=== PATIENT | female | born 1965 | race Caucasian/White ===

== ENCOUNTER 2024-11-06 17:36 | Emergency (ER) | payer MEDICARE, MEDICAID, SELFPAY ==
[2024-11-06 17:37] VITALS: BP 120/79; PULSE 84; RESP 16; TEMP 36.6; O2SAT 95; BMI 39.3
[2024-11-06 19:22] VITALS: BP 124/84; PULSE 85; RESP 16; TEMP 36.7; O2SAT 95
--- NOTE | 2024-11-06 19:50 | RAD_ITS ---
PROCEDURE: CHEST PA AND LATERAL 11/06/2024 REASON FOR EXAM: COUGH TECHNIQUE: CHEST PA AND LATERAL COMPARISON: None FINDINGS: Hardware: None Heart: Cardiomediastinal silhouette is mildly prominent. Mediastinum: Trace aortic atherosclerosis. There is prominence of the addi on the lateral view. Lungs: Flattening of the hemidiaphragms with increased lung volumes. There are linear opacities at the lung bases, with subtle opacity at the periphery of the right lung base near the costophrenic angle. Bones: Degenerative changes are identified within the shoulders and thoracic spine. RAD/Chest PA and Lateral IMPRESSION: 1. Subtle opacity near the periphery of the right lung base is nonspecific, po ssibly atelectasis or scarring, though a small focus of infection could appear similar. 2. Prominent addi on the lateral view, which could represent lymphadenopathy. 3. Sequela of COPD. Consider chest CT when clinically appropriate. Reading Location: [id number]
--- NOTE | 2024-11-06 20:10 | EX.ED.DYSGE1 ---
HPI <RAMO Ramos - Last Filed: 11/06/24 21:18> History of Present Illness Chief Complaint: General Illness Narrative Narrative: Patient presenting today due to concerns for a rash to her forehead she has had over the last 2 weeks. She reports that she started using a new face wash which irritated her skin, she is no longer using this face wash but the rash has persisted. She has not tried putting anything on it. It is not itchy or painful. Additionally, she reports that she has had a nonproductive cough over the last several weeks, she did see her PCP for this and was placed on an antibiotic, she is not sure which antibiotic she was put on. This morning she was checking her vitals and her pulse ox was in the upper 80s. She decided to go to urgent care for her rash and cough but they were closed, prompting her to come here for evaluation. She denies fevers, chills, chest pain, shortness of breath, nausea, and vomiting. PFS <RAMO Ramos - Last Filed: 11/06/24 21:18> [facility] Medical History High cholesterol Hypertension Diabetes Home Medications ?Medication ?Instructions ?Recorded ?Last Taken ?Type hydrochlorothiazide 25 mg tablet 25 mg PO DAILY ##30 05/09/14 Unknown Rx olanzapine 5 mg tablet (Zyprexa) 5 mg PO DAILY 05/09/14 Unknown History albuterol sulfate 90 mcg/actuation 1 - 2 puff inhalation Q4H PRN PRN 11/06/24 Unknown Rx aerosol inhaler (Ventolin HFA) Wheezing #1 inh amlodipine 5 mg tablet 5 mg PO DAILY 11/06/24 Unknown History atorvastatin 20 mg tablet 20 mg PO QHS cholesterol 11/06/24 Unknown History cholecalciferol (vitamin D3) 25 PO 11/06/24 Unknown History mcg (1,000 unit) tablet (Vitamin D3) doxycycline hyclate 100 mg capsule 100 mg PO BID #14 caps 11/06/24 Unknown Rx escitalopram oxalate 5 mg tablet 5 mg PO DAILY 11/06/24 Unknown History losartan 100 mg tablet 100 mg PO DAILY 11/06/24 Unknown History metformin 500 mg tablet 500 mg PO BID 11/06/24 Unknown History olanzapine 15 mg tablet 15 mg PO QHS 11/06/24 Unknown History potassium chloride 10 mEq 10 meq PO BID 11/06/24 Unknown History tablet,extended release white petrolatum 41 % topical 1 applic topical BID PRN dry skin 11/06/24 Unknown Rx ointment (Aquaphor Healing) #7 grams Allergy/AdvReac Type Severity Reaction Status Date / Time No Known Allergies Allergy Verified 11/06/24 17:37 Social History Smoking Status: Never smoker ROS <RAMO Ramos - Last Filed: 11/06/24 21:18> ROS ED Constitutional Constitutional ED: Denies chills or fever(s) Cardiovascular Cardiovascular: Denies chest pain Respiratory/Chest Respiratory/Chest: Reports cough; Denies dyspnea, sputum or wheezing Gastrointestinal Gastrointestinal: Denies abdominal pain, nausea or vomiting Integumentary Reports rash Neurologic Neurologic: Denies weakness EXAM <RAMO Ramos - Last Filed: 11/06/24 21:18> Physical Exam Const Vital Signs: 11/06/24 17:37 11/06/24 19:22 11/06/24 19:25 Temperature 97.8 F 98.1 F Temperature Source Oral Oral Pulse Rate 84 85 Respiratory Rate 16 16 Respiratory Effort Normal Non-Labored Respiratory Pattern Normal Blood Pressure 120/79 124/84 H Blood Pressure Mean 92 97 Pulse Ox 95 95 Oxygen Delivery Method Room Air Room Air 11/06/24 21:04 Temperature 98.1 F Temperature Source Pulse Rate 98 Respiratory Rate 16 Respiratory Effort Respiratory Pattern Blood Pressure 142/88 H Blood Pressure Mean 106 Pulse Ox 98 Oxygen Delivery Method Positive well nourished, well developed and no apparent distress General Appearance ED: well developed HEENT Reports normocephalic and head/scalp atraumatic Mouth ED: Yes moist mucous membranes normal Eyes PERRL and EOMs intact bilaterally Neck full ROM and supple Chest Wall inspection of chest normal Resp normal respiratory effort and clear to auscultation bilaterally Cardio regular rate and regular rhythm GI soft to palpation, non-tender, non-distended and no masses Back/Spine normal ROM and normal to inspection Extremity normal to inspection and full ROM Neuro oriented x3, CN's II-XII intact bilaterally, moves all extremities, no focal motor deficits and no sensory deficits noted Sensorium / Orientation: awake and alert Psych mental status grossly normal and thought process normal Skin Skin Narrative: Dry skin to the forehead, no papules, petechiae, pustules, or abscess. No signs of infection. <Dr. Riky Martin DO - Last Filed: 11/06/24 21:55> Physical Exam Const Vital Signs: 11/06/24 17:37 11/06/24 19:22 11/06/24 19:25 Temperature 97.8 F 98.1 F Temperature Source Oral Oral Pulse Rate 84 85 Respiratory Rate 16 16 Respiratory Effort Normal Non-Labored Respiratory Pattern Normal Blood Pressure 120/79 124/84 H Blood Pressure Mean 92 97 Pulse Ox 95 95 Oxygen Delivery Method Room Air Room Air 11/06/24 21:04 Temperature 98.1 F Temperature Source Pulse Rate 98 Respiratory Rate 16 Respiratory Effort Respiratory Pattern Blood Pressure 142/88 H Blood Pressure Mean 106 Pulse Ox 98 Oxygen Delivery Method MDM <RAMO Ramos - Last Filed: 11/06/24 21:18> [facility] Narrative Medical decision making narrative: Patient presenting today due to a rash on her forehead which she has had over the past 2 weeks and a cough which has been ongoing for several weeks despite taking antibiotics. She is nontoxic-appearing and in no acute distress. Her O2 saturation here has remained around 95% on room air. She is afebrile. Her forehead is consistent with dry skin, she reports this started using a new face wash. Recommend that she put a non-scented sensitive skin lotion on her forehead and discontinue the face wash. Given her cough, chest x-ray obtained to assess for infiltrate and shows a subtle opacity near the periphery of the right lung base and sequela of COPD, she will be treated with antibiotics and an albuterol inhaler. She was ambulated and did not become hypoxic, given this I feel she can be treated as an outpatient. Recommended to close follow-up with her PCP and she will be discharged home in stable condition. Radiography X-Ray: Read by ED Physician Diagnostic Testing: Clinical Impression(s) from Imaging Studies Chest X-Ray 11/06/24 19:50 IMPRESSION: 1. Subtle opacity near the periphery of the right lung base is nonspecific, possibly atelectasis or scarring, though a small focus of infection could appear similar. 2. Prominent addi on the lateral view, which could represent lymphadenopathy. 3. Sequela of COPD. Consider chest CT when clinically appropriate. Reading Location: [facility] <Dr. Riky Martin, DO - Last Filed: 11/06/24 21:55> MDM Radiography Diagnostic Testing: Clinical Impression(s) from Imaging Studies Chest X-Ray 11/06/24 19:50 IMPRESSION: 1. Subtle opacity near the periphery of the right lung base is nonspecific, possibly atelectasis or scarring, though a small focus of infection could appear similar. 2. Prominent addi on the lateral view, which could represent lymphadenopathy. 3. Sequela of COPD. Consider chest CT when clinically appropriate. Reading Location: [facility] Treatment and Re-Evaluation :: ED attending note: I evaluated the patient in conjunction with the AYANA. I agree with his/her statements and above findings. I have personally performed a face to face assessment of the patient and have reviewed the [facility]YA[facility] Note. I performed a substantive portion of the visit including all aspects of the following. I personally saw the patient performed chart review, physical exam, reviewed labs, imaging (if obtained), and formulated a treatment and management plan. The patient's chest x-ray was read reviewed personally myself shows right lower lobe pneumonia. This note was generated with [employer] dictation software. It may contain incorrect words, spelling, and punctuation that were not noted in review of the chart prior to signing. Discharge Plan Triage Chief Complaint: General Illness ED Midlevel Provider: Elena Maurer ED Provider: Riky Martin Dx/Rx/DC Orders Clinical Impression: Pneumonia, Rash Instructions: ED Pneumonia (Adult) Prescriptions: New doxycycline hyclate 100 mg capsule 100 mg PO BID Qty: 14 0RF albuterol sulfate [Ventolin HFA] 90 mcg/actuation HFA aerosol inhaler 1 - 2 puff inhalation Q4H PRN PRN (Reason: Wheezing) Qty: 1 0RF Aquaphor Healing 41 % ointment 1 applic topical BID PRN (Reason: dry skin) Qty: 7 0RF Rx Instructions: Apply to your forehead as needed No Action olanzapine [Zyprexa] 5 MG tablet 5 mg PO DAILY hydrochlorothiazide 25 MG tablet 25 mg PO DAILY Qty: 30 0RF metformin 500 mg tablet 500 mg PO BID atorvastatin 20 mg tablet 20 mg PO QHS potassium chloride 10 mEq tablet extended release 10 meq PO BID amlodipine 5 mg tablet 5 mg PO DAILY olanzapine 15 mg tablet 15 mg PO QHS losartan 100 mg tablet 100 mg PO DAILY escitalopram oxalate 5 mg tablet 5 mg PO DAILY cholecalciferol (vitamin D3) [Vitamin D3] 25 mcg (1,000 unit) tablet PO Primary Care Provider: Osmel Colbert Referrals: Care Physician,No Primary [Non-Staff] - Activity Restrictions/Additional Instructions: Follow-up with your PCP in the next 5 to 7 days and return for any worsening symptoms. You can put a nonscented sensitive skin lotion on your forehead to help with the dry skin/rash, discontinue the soap you were using. Print Language: Luxembourger Disposition Disposition: Home, Self Care Discharge Date/Time: 11/06/24 21:11
--- OUTSIDE RECORDS SUMMARY | 2024-11-06 20:37 | XMS RPT_ITS | CCD ---
Author Organization [facility] Care Team Providers Care Wool Hat Hydraulicker Name Role Phone JOSE C WALLACE Unavailable Unavailable Primay Care Physicia, No Unavailable Unavail able Irma Jurado Unavailable Unavailable Anand Colbert MD Primary Care Provider Jackeline Blue PA-C Primary Care Provider Jackeline Blue PA-C Primary Care Provider [phone] Jackeline Blue PA-C Primary Care Provider [phone] Jackeline Blue PA-C Primary Care Provider [phone] Haagen CUSTOMER RESOLUTION SPECIALIST.DARIO, Venessa Unavailable Suppan CUSTOMER RESOLUTION SPECIALIST.DARIO, Tiffany A Unavailable Suppan CUSTOMER RESOLUTION SPECIALIST.DARIO Tiffany A Primary Care Provi haydee Haagen CUSTOMER RESOLUTION SPECIALIST.DARIO Venessa Unavailable Suppan CUSTOMER RESOLUTION SPECIALIST.DARIO, Tiffany A Unavailable Anand Colbert MD Primary Care Provider Haagen CUSTOMER RESOLUTION SPECIALIST.DARIO, Venessa Unavailable Suppan CUSTOMER RESOLUTION SPECIALIST.DARIO, Tiffany A Unavailable Haagen CUSTOMER RESOLUTION SPECIALIST.DARIO, Venessa Unavailable Suppan CUSTOMER RESOLUTION SPECIALIST.DARIO, Tiffany A Unavailable SHANTELAN, TIFFANY A Referring Unavailable AGAPITO TIFFANY A Primary Care Unavailable SELF Referring Unavailable ANAND COLBERT Primary Care Unavailable ANAND COLBERT Attending Unavailable ANAND COLBERT Primary Care Unavailable ANAND COLBERT Attending Unavailable VINCENT BLUE Primary Care Unavailable VINCENT BLUE Referring Unavailable TIFFANY JOE Attending Unavailable TIFFANY JOE Referring Unavailable VINCENT BLUE Primary Care Unavailable SUPPAN, TIFFANY A Primary Care Unavailable SUPPAN, TIFFANY A Referring Unavailable VINCENT BLUE Primary Care Unavailable VINCENT BLUE Referring Unavailable AGAPITO TIFFANY Teri Attending Unavailable Medications Current Medications Medication Drug Class(es) Dates Sig (Normalized) Sig (Original) amLODIPine 5 mg oral tablet (20 sources) Dihydropyridine Calcium Channel Li Start: 09-06-2024 End: 09-06-2025 take 1 tablet by mouth once daily amLODIPine (NORVASC) 5 mg tablet Indications: Essential hypertension Take 1 tablet by mouth once daily. 90 tablet 3 09/06/2024 09/06/2025 Active Start: 07-04-2024 End: 07-04-2025 take 1 tablet by mouth once daily amLODIPine (NORVASC) 10 mg tablet Indications: Essential hypertension Take 1 tablet by mouth once daily. 90 tablet 3 07/04/2024 09/06/2024 Discontinued Start: 06-24-2023 End: 07-04-2024 take 1 tablet by mouth once daily amLODIPine (NORVASC) 5 mg tablet Indications: Essential hypertension Take 1 tablet by mouth once daily. 90 tablet 3 01/04/2024 07/04/2024 Discontinued Start: 07-12-2021 End: 06-22-2023 take 1 tablet by mouth once daily amLODIPine (NORVASC) 5 mg tablet Indications: Essential hypertension Take 1 tablet by mouth once daily. 90 tablet 3 06/26/2022 06/22/2023 Discontinued Comment on above: Take 1 tablet by chucky th once daily. amoxicillin 875 mg / clavulanate 125 mg oral tablet (2 sources) Penicillin-class Antibacterial Start: End: take 1 tablet by mouth twice daily amoxicillin-clavul anate potassium (AUGMENTIN) 875-125 mg per tablet Indications: Acute recurrent maxillary sinusitis Take 1 tablet by mouth two times a day for 10 days. 20 tablet 01/04/2024 01/14/2024 Active atorvastatin 20 mg oral tablet (20 sources) HMG-CoA Reductase Inhibitor Start: End: take 1 tablet by mouth once daily at bedtime for hyperlipidemia atorvastatin (LIPITOR) 20 mg tablet Indications: Hyperlipidemia, mixed Take 1 tablet by mouth daily at bedtime. For cholesterol. 90 tablet 3 01/04/2024 Active Start: 07-12-2021 End: 06-22-2023 take 1 tablet by mouth once daily at bedtime for hyperlipidemia atorvastatin (LIPITOR) 20 mg tablet Indications: Hyperlipidemia, mixed Take 1 tablet by mouth daily at bedtime. For cholesterol. 90 tablet 3 06/26/2022 06/22/2023 Discontinued Comment on above: Take 1 tablet by chucky th daily at bedtime. For cholesterol. benztropine mesylate 1 mg oral tablet (20 sources) Anticholinergic, Antihistamine Start: take 1 tablet by mouth every twelve hours as needed benztropine (COGENTIN) 1 mg tablet Take 1 mg by mouth twice daily as needed. 07/17/2022 Active Start: 11-04-2021 End: 11-11-2022 take 1 tablet by mouth every eight hours as needed benztropine (COGENTIN) 0.5 mg tablet Take 0.5 mg by mouth three times daily as needed. 0 11/04/2021 11/11/2022 Discontinued Comment on above: 0.5mg 2 in the morni ng and 1 in afternoon Take 0.5 mg by mouth three times daily as needed. Take 1 mg by mouth t wice daily as needed. cholecalciferol 0.025 mg oral capsule (18 sources) Vitamin D Start: 03-25-2024 Cholecalciferol, Vitamin D3, 25 mcg (1,000 unit) cap Indications: Vitamin D deficiency 1 caps daily during the summer, 2 caps daily during winter Patient should start on March 25, 2024. 180 capsule 3 03/25/2024 Active Start: 03-25-2024 Cholecalcifero l, Vitamin D3, 25 mcg (1,000 unit) cap Indications: Vitamin D deficiency 1 caps daily during the summer, 2 caps daily during winter Patient should start on March 25, 2024. 180 capsule 3 03/25/2024 Active Start: 03-25-2024 Cholecalcifero l, Vitamin D3, 25 mcg (1,000 unit) cap Indications: Vitamin D deficiency 1 caps daily during the summer, 2 caps daily during winter Patient should start on March 25, 2024. 180 capsule 3 03/25/2024 Active Start: 03-26-2023 End: 01-04-2024 Cholecalciferol, Vitamin D3, 25 mcg (1,000 unit) cap 1 caps daily during the summer, 2 caps daily during winter 180 capsule 3 03/26/2023 01/04/2024 Discontinued Start: 05-12-2022 Cholecalcifero l, Vitamin D3, 25 mcg (1,000 unit) cap 1 caps daily during the summer, 2 caps daily during winter 180 capsule 3 05/12/2022 Active Comment on above: 1 caps daily during the summer, 2 caps daily during winter escitalopram 5 mg oral tablet (8 sources) Serotonin Reuptake Inhibitor Start: 2023 take 1 tablet by mouth once escitalopram oxalate (LEXAPRO) 5 mg tablet Take 1 tablet by mouth every afternoon. 12/29/2023 Active hydroCHLOROthiazide 25 mg oral tablet (20 sources) Thiazide Diuretic Start: 2023 End: 2023 take 1 tablet by mouth once daily hydroCHLOROthiazide 25 mg tablet Indications: Essential hypertension Take 1 tablet by mouth once daily. 90 tablet 3 01/04/2024 Active Start: 07-12-2021 End: 06-22-2023 take 1 tablet by mouth once daily hydroCHLOROthiazide (HYDRODIURIL, ESIDRIX) 25 mg tablet Indications: Essential hypertension Take 1 tablet by mouth once daily. 90 tablet 3 06/26/2022 06/22/2023 Discontinued Comment on above: Take 1 tablet by chucky th once daily. losartan potassium 100 mg oral tablet (20 sources) Angiotensin 2 Receptor Li Start: take 1 tablet by mouth once daily losartan (COZAAR) 100 mg tablet Indications: Essential hypertension Take 1 tablet by mouth once daily. Patient should start on March 25, 2024. 90 tablet 3 03/25/2024 Active Start: 03-25-2024 take 1 tablet by chucky th once daily losartan (COZAAR) 100 mg tablet Indications: Essential hypertension Take 1 tablet by mouth once daily. Patient should start on March 25, 2024. 90 tablet 3 03/25/2024 Active Start: 03-25-2024 End: 01-04-2024 take 1 tablet by mouth once daily losartan (COZAAR) 100 mg tablet Indications: Essential hypertension Take 1 tablet by mouth once daily. Patient should start on March 25, 2024. 90 tablet 3 03/25/2024 01/04/2024 Discontinued Start: 03-25-2024 take 1 tablet by chucky th once daily losartan (COZAAR) 100 mg tablet Indications: Essential hypertension Take 1 tablet by mouth once daily. Patient should start on March 25, 2024. 90 tablet 3 03/25/2024 Active Start: 03-26-2023 End: 01-04-2024 take 1 tablet by mouth once daily losartan (COZAAR) 100 mg tablet Indications: Essential hypertension Take 1 tablet by mouth once daily. 90 tablet 3 03/26/2023 01/04/2024 Discontinued Start: 05-13-2021 End: 05-12-2022 take 1 tablet by mouth once daily losartan (COZAAR) 100 mg tablet Indications: Essential hypertension Take 1 tablet by mouth once daily. 90 tablet 3 05/12/2022 Active Comment on above: Take 1 tablet by chucky th once daily. metFORMIN hydrochloride 500 mg oral tablet (20 sources) Biguanide Start: End: take 1 tablet by mouth twice daily at mealtime metFORMIN (GLUCOPHAGE) 500 mg tablet Indications: Type 2 diabetes mellitus without complication, without long-term current use of insulin (HCC) Take 1 tablet by mouth two times a day with meals. . Patient should start on March 25, 2024. 180 tablet 3 03/25/2024 03/25/2025 Active Start: 05-13-2021 End: 11-08-2022 take 1 tablet by mouth twice daily at mealtime metFORMIN (GLUCOPHAGE) 500 mg tablet Indications: Type 2 diabetes mellitus without complication, without long-term current use of insulin (HCC) Take 1 tablet by mouth twice daily with meals. . 180 tablet 3 05/12/2022 Active Comment on above: Take 1 tablet by chucky th twice daily with meals. . Take 1 tablet by chucky th two times a day with meals. . OLANZapine 15 mg oral tablet (20 sources) Atypical Antipsychotic Start: take 1 tablet by mouth once daily at bedtime OLANZapine (ZYPREXA) 15 mg tablet Take 15 mg by mouth daily at bedtime. 11/09/2020 Active Comment on above: Take 15 mg by mouth daily at bedtime. polyethylene glycol 3350 [id number] mg / potassium chloride 2970 mg / sodium bicarbonate 6740 mg / sodium chloride 5860 mg / sodium sulfate 41334 mg powder for oral solution (1 source) Osmotic Laxative Start: 3 End: 3 peg 3350-Electrolytes (GOLYTELY) 236-22.74-6.74 -5.86 gram suspension Take 4,000 mL by mouth one time only for 1 dose. 1 Each 0 07/29/2022 07/29/2022 Active Comment on above: Take 4,000 mL by chucky th one time only for 1 dose. potassium chloride 10 meq extended release oral tablet (20 sources) Start: take 1 tablet by mouth twice daily potassium chloride (K-TAB) 10 mEq tablet Indications: Type 2 diabetes mellitus without complication, without long-term current use of insulin (HCC) Take 1 tablet by mouth two times a day. Patient should start on March 25, 2024. 180 tablet 3 03/25/2024 Active Start: 03-25-2024 take 1 tablet by chucky th twice daily potassium chloride (K-TAB) 10 mEq tablet Indications: Type 2 diabetes mellitus without complication, without long-term current use of insulin (HCC) Take 1 tablet by mouth two times a day. Patient should start on March 25, 2024. 180 tablet 3 03/25/2024 Active Start: 03-25-2024 take 1 tablet by chucky th twice daily potassium chloride (K-TAB) 10 mEq tablet Indications: Type 2 diabetes mellitus without complication, without long-term current use of insulin (HCC) Take 1 tablet by mouth two times a day. Patient should start on March 25, 2024. 180 tablet 3 03/25/2024 Active Start: 03-26-2023 End: 01-04-2024 take 1 tablet by mouth twice daily potassium chloride (K-TAB) 10 mEq tablet Indications: Type 2 diabetes mellitus without complication, without long-term current use of insulin (HCC) Take 1 tablet by mouth two times a day. 180 tablet 3 03/26/2023 01/04/2024 Discontinued Start: 05-13-2021 End: 05-12-2022 take 1 tablet by mouth twice daily potassium chloride (K-TAB) 10 mEq tablet Indications: Type 2 diabetes mellitus without complication, without long-term current use of insulin (HCC) Take 1 tablet by mouth twice daily. 180 tablet 3 05/12/2022 Active Comment on above: Take 1 tablet by chucky th twice daily. Take 1 tablet by chucky th two times a day. Problems Active Problems Problem Classification Problem Date Documented Da te Episodic/Chronic Diabetes mellitus without complication (20 sources) Type 2 diabetes mellitus without complication; Translations: [Type 2 diabetes mellitus without complications] Onset: 8 06-17-2017 Chronic Digestive congenital anomalies (1 source) Tortuous colon; Translations: [Other specified congenital malformations of intestine] 12-23-2022 Chronic Disorders of lipid metabolism (8 sources) Mixed hyperlipidemia; Translations: [Mixed hyperlipidemia] Onset: 5 Chronic Essential hypertension (20 sources) Unspecified essential hypertension; Translations: [Hypertensive disorder] Onset: 5 05-18-2014 Chronic Hemorrhoids (1 source) Hemorrhoids; Translations: [Unspecified hemorrhoids] 12-23-2022 Episodic Mood disorders (20 sources) Bipolar I disorder; Translations: [Bipolar disorder, unspecified] Onset: 8 03-06-2017 Chronic Nutritional deficiencies (5 sources) Vitamin D deficiency; Translations: [Vitamin D deficiency, unspecified] Onset: 4 Chronic Other and unspecified benign neoplasm (3 sources) Serrated polyp of colon; Translations: [Polyp of colon] Episodic Other and unspecified benign neoplasm (1 source) Tubular adenoma ; Translations: [Benign neoplasm, unspecified site] 12-23-2022 Episodic Other connective tissue disease (2 sources) Extrapyramidal sign; Translations: [Other symptoms and signs involving the nervous system] Episodic Other gastrointestinal disorders (1 source) Melanosis coli; Translations: [Other specified diseases of intestine] 12-23-2022 Episodic Other liver diseases (1 source) Steatosis of liver; Translations: [Fatty (change of) liver, not elsewhere classified] 09-06-2024 Chronic Other liver diseases (1 source) Fatty (change of) liver, not elsewhere classified; Translations: [Fatty liver] Onset: 5 Chronic Other nervous system disorders (1 source) Intermittent tremor; Translations: [Tremor, unspecified] 06-29-2023 Episodic Other nutritional; endocrine; and metabolic disorders (20 sources) Constitutional obesity; Translations: [Other obesity] Onset: 7 06-12-2016 Chronic Other nutritional; endocrine; and metabolic disorders (1 source) Hypercalcemia; Translations: [Hypercalcemia] 07-05-2024 Chronic Other nutritional; endocrine; and metabolic disorders (1 source) Obesity; Translations: [Class 2 obesity with body mass index (BMI) of 39.0 to 39.9 in adult, unspecified obesity type, unspecified whether serious comorbidity present] 09-26-2024 Chronic Other nutritional; endocrine; and metabolic disorders (1 source) Body mass index (BMI) 39.0-39.9, adult; Translations: [Class 2 obesity with body mass index (BMI) of 39.0 to 39.9 in adult, unspecified obesity type, unspecified whether serious comorbidity present] Onset: Chronic Other nutritional; endocrine; and metabolic disorders (1 source) Hypercalcemia; Translations: [Hypercalcemia] Onset: Chronic Other screening for suspected conditions (not mental disorders or infectious disease) (7 sources) Patient encounter status; Translations: [Encounter for screening mammogram for malignant neoplasm of breast] Episodic Residual codes; unclassified (1 source) Edema; Translations: [Edema, unspecified] 09-26-2024 Episodic Residual codes; unclassified (1 source) Edema, unspecified; Translations: [Edema, unspecified type] Onset: Episodic Schizophrenia and other psychotic disorders (20 sources) Schizophreniform disorder; 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] Onset: 8 10-04-2007 Chronic Screening or history of mental health and substance abuse (3 sources) Personal history of tobacco use; Translations: [Patient encounter status] Onset: 7 01-04-2024 Episodic Unclassified (1 source) Class 2 obesity with body mass index (BMI) of 39.0 to 39.9 in adult, unspecified obesity type, unspecified whether serious comorbidity present; Translations: [Class 2 obesity with body mass index (BMI) of 39.0 to 39.9 in adult, unspecified obesity type, unspecified whether serious comorbidity present] Onset: 06-02-202 5 Past or Other Problems Problem Classification Problem Date Documented Da te Episodic/Chronic Deficiency and other anemia (20 sources) Anemia; Translations: [Anemia, unspecified] Onset: 05-05-2011 03-06-2017 Episodic Menstrual disorders (20 sources) Irregular periods; Translations: [Irregular menstruation, unspecified] Onset: 04-16-2011 Resolved: 07-03-2011 07-03-2011 Chronic Nonspecific chest pain (1 source) Chest pain, unspecified; Translations: [CHEST PAIN NOS] Onset: 10-20-2016 Episodic Other and unspecified benign neoplasm (14 sources) History of polyp of colon; Translations: [Personal history of colonic polyps] Onset: 12-15-2022 Episodic Other and unspecified benign neoplasm (9 sources) Leiomyoma; Translations: [Benign neoplasm of connective and other soft tissue, unspecified] Onset: 05-15-2011 Resolved: 07-03-2011 07-03-2011 Episodic Other upper respiratory infections (2 sources) Acute recurrent maxillary sinusitis; Translations: [Acute maxillary sinusitis] Onset: 01-04-2024 01-04-2024 Episodic Results Test Name Value Interpretation Reference Range Facility [facility] 09-26-2024 CNOV Office Visit (FAMPWS ) ----- SARA PEOPLES ([id number]) 1965 F Date Time Provider Department 09/26/24 3:00 PM ANAND COLBERT FAMPWS During your visit today, we recorded the following information about you: Pulse Blood pressure Weight 88/minute 124/82 101.6 kg Anand Colbert MD 09/26/2024 3:15 PM Signed - Continue your current blood pressure medicine (amlodipine) as prescribed. - Watch your salt intake and limit high-sodium foods. - Keep up your weight-management efforts as you?ve been doing. - If you notice swelling again: - Elevate your legs when you?re resting. - Drink a little extra water to help reduce fluid buildup. - Your next follow-up appointment is scheduled for March 20. - Call the office sooner if swelling returns or worsens, or if you develop chest pain, shortness of breath, leg redness, warmth, or tenderness. Anand Colbert MD 09/26/2024 3:57 PM Signed Sara is a 59-year-old female with a history of HTN, presenting for evaluation of edema. HPI Edema: - Onset last week after consuming popcorn with high salt content. - Significant swelling in ankles; mild swelling in hands. - Edema improved gradually over several days; currently resolved. - Denies chest pain, orthopnea, dizziness, or lightheadedness. - Mild dyspnea on exertion when climbing stairs, attributed to weight. - No history of edema with salt intake. - Denies cough, wheezing, or abdominal discomfort. Hypertension: - Well-controlled on amlodipine. MEDICATIONS: Current Outpatient Medications Medication Sig amLODIPine (NORVASC) 5 mg tablet Take 1 tablet by mouth once daily. escitalopram oxalate (LEXAPRO) 5 mg tablet Take 1 tablet by mouth every afternoon. Cholecalciferol, Vitamin D3, 25 mcg (1,000 unit) cap 1 caps daily during the summer, 2 caps daily during winter Patient should start on March 25, 2024. metFORMIN (GLUCOPHAGE) 500 mg tablet Take 1 tablet by mouth two times a day with meals. . Patient should start on March 25, 2024. potassium chloride (K-TAB) 10 mEq tablet Take 1 tablet by mouth two times a day. Patient should start on March 25, 2024. atorvastatin (LIPITOR) 20 mg tablet Take 1 tablet by mouth daily at bedtime. For cholesterol. blood sugar diagnostic (BLOOD GLUCOSE TEST) test strip Test blood sugar(s1) 1 times daily. Dx: Type 2 DM - Controlled E11.9 Insulin: Yes hydroCHLOROthiazide 25 mg tablet Take 1 tablet by mouth once daily. losartan (COZAAR) 100 mg tablet Take 1 tablet by mouth once daily. Patient should start on March 25, 2024. benztropine (COGENTIN) 1 mg tablet Take 1 mg by mouth twice daily as needed. OLANZapine (ZYPREXA) 15 mg tablet Take 15 mg by mouth daily at bedtime. Lancets lancets Test blood sugar(s) 1 times daily. Dx: Type 2 DM - Controlled E11.9 Insulin: Yes No current facility-administered medications for this visit. ALLERGIES: ALLERGIES No Known Allergies PAST MEDICAL HISTORY Diagnosis Date Bipolar I disorder, most recent episode (or current) unspecified DM (diabetes mellitus) (HCC) Dysmenorrhea Excessive or frequent menstruation Heavy periods HTN (hypertension) Hypercholesterolemia Irregular menstrual cycle Irregular periods Schizophreniform disorder, chronic condition (HCC) PAST SURGICAL HISTORY Procedure Laterality Date ANTERIOR COLPORRAPHY RPR CYSTOCELE W/CYSTO 05/22/2011 anterior repair APPENDECTOMY 13y/o Was readmitted twice with infection after APPENDECTOMY COLONOSCOPY FLX DX W/COLLJ SPEC WHEN PFRMD 06/26/2016 Colonoscopy COLONOSCOPY FLX DX W/COLLJ SPEC WHEN PFRMD 09/28/2017 Colonoscopy COLONOSCOPY FLX DX W/COLLJ SPEC WHEN PFRMD 12/13/2019 Colonoscopy COLONOSCOPY FLX DX W/COLLJ SPEC WHEN PFRMD 12/13/2019 Colonoscopy COLONOSCOPY FLX DX W/COLLJ SPEC WHEN PFRMD 12/15/2022 repeat 3 years DILATION AND CURETTAGE DXAND/THER NONOBSTETRIC Dilation AND curettage LAPAROSCOPY TOT HYSTERECTOMY >250 G W/TUBE/OVAR 05/22/2011 LAVH, bilateral salpingectomy VAGINAL HYSTERECTOMY FAMILY HISTORY Problem Relation Age of Onset Prostate Cancer Father Genetic Maternal Grandmother Cancer Maternal Grandmother lymphoma Diabetes Maternal Aunt Diabetes Maternal Aunt Social History Tobacco Use Smoking status: Former Current packs/day: 0.10 Average packs/day: 0.1 packs/day for 2.0 years (0.2 ttl pk-yrs) Types: Cigarettes Smokeless tobacco: Current Types: Snuff Tobacco comments: one cigarette daily 35 years ago,no longer smoking now Vaping Use Vaping status: Never Used Substance Use Topics Alcohol use: No Comment: 3/year Drug use: No Reviewed current medications, allergies, past medical history, surgical history, family history and social history today. REVIEW OF SYSTEMS Cardiovascular: (-) chest pain, (-) orthopnea Respiratory: (+) exertional dyspnea Gastrointestinal: (-) abdominal pain Musculoske (more content not included)... Normal [facility] 09-06-2024 CNOV Office Visit (FAMPWS ) ----- RICHELLESARA Tiffany ([id number]) 1965 F Date Time Provider Department 09/06/24 3:40 PM ANAND COLBERT During your visit today, we recorded the following information about you: Pulse Blood pressure Weight Height 74/minute 136/84 102.1 kg 1.6 m Anand Colbert MD 09/06/2024 3:47 PM Signed Patient presents with: Hypertension HPI: Patient presents today for office visit for blood pressure follow up. Saw Pattie Joe on 07/04/24. States when SILVANO checked her BP it was 144/80. When Pattie came in the room patient states she put the cuff on her arm but did not pump it up and was told that the recheck was still high. Amlodipine was increased to 10 mg daily at that time. She had 5 mg tabs at home and was told to take 2 tablets until increased dose arrived from pharmacy. She never received new Rx from pharmacy and did not follow up on this. Still currently only taking 5 mg one tab daily because she didn't want to run out. Denies chest pain. Shortness of breath with exertion. Denies headaches and dizziness. Denies palpitations and syncope. Some edema to right ankle and in B/L hands. Latest Ref Rng 07/04/2024 07/11/2024 Protein, Total 6.3 - 8.0 g/dL 7.7 Albumin 3.9 - 4.9 g/dL 4.5 Calcium 8.5 - 10.2 mg/dL 10.5 (H) Bilirubin, Total 0.2 - 1.3 mg/dL 0.3 Alkaline Phosphatase 34 - 123 U/L 68 AST 13 - 35 U/L 24 ALT 7 - 38 U/L 41 (H) Glucose 74 - 99 mg/dL 152 (H) BUN 7 - 21 mg/dL 20 Creatinine 0.58 - 0.96 mg/dL 0.63 Sodium 136 - 144 mmol/L 142 Potassium 3.7 - 5.1 mmol/L 4.3 Chloride 98 - 107 mmol/L 101 CO2 22 - 30 mmol/L 30 Anion Gap 8 - 15 mmol/L 11 eGFR >=60 mL/min/1.73m? 102 Total Cholesterol, Nonfasting <200 mg/dL 191 Triglycerides, Nonfasting <150 mg/dL 113 HDL Cholesterol, Nonfasting >39 mg/dL 60 LDL Cholesterol Calculated, Nonfasting <100 mg/dL 108 (H) Non HDL Cholesterol, Nonfasting <130 mg/dL 131 (H) VLDL Cholesterol, Nonfasting <30 mg/dL 23 Total Chol/HDL Ratio, Nonfasting <5.10 mg/dL 3.18 LDL/HDL Ratio, Nonfasting <2.54 mg/dL 1.80 Hemoglobin A1C 4.3 - 5.6 % 6.2 (H) Estimated Average Glucose mg/dL 131 Normalized Calcium 1.08 - 1.30 mmol/L 1.29 Ionized Calcium 1.08 - 1.30 mmol/L 1.27 PTH, Intact 15 - 65 pg/mL 27 Vitamin D 25 Hydroxy 31.0 - 80.0 ng/mL 49.7 Legend: (H) High MEDICATIONS: Current Outpatient Medications Medication Sig amLODIPine (NORVASC) 10 mg tablet Take 1 tablet by mouth once daily. escitalopram oxalate (LEXAPRO) 5 mg tablet Take 1 tablet by mouth every afternoon. Cholecalciferol, Vitamin D3, 25 mcg (1,000 unit) cap 1 caps daily during the summer, 2 caps daily during winter Patient should start on March 25, 2024. metFORMIN (GLUCOPHAGE) 500 mg tablet Take 1 tablet by mouth two times a day with meals. . Patient should start on March 25, 2024. potassium chloride (K-TAB) 10 mEq tablet Take 1 tablet by mouth two times a day. Patient should start on March 25, 2024. atorvastatin (LIPITOR) 20 mg tablet Take 1 tablet by mouth daily at bedtime. For cholesterol. blood sugar diagnostic (BLOOD GLUCOSE TEST) test strip Test blood sugar(s1) 1 times daily. Dx: Type 2 DM - Controlled E11.9 Insulin: Yes hydroCHLOROthiazide 25 mg tablet Take 1 tablet by mouth once daily. losartan (COZAAR) 100 mg tablet Take 1 tablet by mouth once daily. Patient should start on March 25, 2024. benztropine (COGENTIN) 1 mg tablet Take 1 mg by mouth twice daily as needed. OLANZapine (ZYPREXA) 15 mg tablet Take 15 mg by mouth daily at bedtime. Lancets lancets Test blood sugar(s) 1 times daily. Dx: Type 2 DM - Controlled E11.9 Insulin: Yes No current facility-administered medications for this visit. ALLERGIES: ALLERGIES No Known Allergies PAST MEDICAL HISTORY Diagnosis Date Bipolar I disorder, most recent episode (or current) unspecified DM (diabetes mellitus) (HCC) Dysmenorrhea Excessive or frequent menstruation Heavy periods HTN (hypertension) Hypercholesterolemia Irregular menstrual cycle Irregular periods Schizophreniform disorder, chronic condition (HCC) PAST SURGICAL HISTORY Procedure Laterality Date ANTERIOR COLPORRAPHY RPR CYSTOCELE W/CYSTO 05/22/2011 anterior repair APPENDECTOMY 13y/o Was readmitted twice with infection after APPENDECTOMY COLONOSCOPY FLX DX W/COLLJ SPEC WHEN PFRMD 06/26/2016 Colonoscopy COLONOSCOPY FLX DX W/COLLJ SPEC WHEN PFRMD 09/28/2017 Colonoscopy COLONOSCOPY FLX DX W/COLLJ SPEC WHEN PFRMD 12/13/2019 Colonoscopy COLONOSCOPY FLX DX W/COLLJ SPEC WHEN PFRMD 12/13/2019 Colonoscopy COLONOSCOPY FLX DX W/COLLJ SPEC WHEN PFRMD 12/15/2022 repeat 3 years DILATION AND CURETTAGE DXAND/THER NONOBSTETRIC Dilation AND curettage LAPAROSCOPY TOT HYSTERECTOMY >250 G W/TUBE/OVAR 05/22/2011 LAVH, bilateral salpingectomy VAGINAL HYSTERECTOMY FAMILY HISTORY Problem Relation Age of O (more content not included)... Normal [facility] 25(OH)D3 SerPl-alberton 2024 25-hydroxyvitamin D3 [Mass/Vol] 49.7 ng/mL Normal 31.0-80.0 [facility] Comment on above: Order Comment: Speci men Type: BLOOD SPECIMEN Ordering Facility: [facility] Address: [address] [place] [address] Result Comment: Clas sification of 25 OH Vitamin D status: Deficiency/Insufficiency: < or = 30 ng/ml. Sufficiency/Optimal Levels: 31-80 ng/mL Toxicity: > 100 ng/mL. Test performed by chemiluminescent immunoassay. Performed By: #### 2 731-8 #### [facility] CLIA [id number] [address] [place] [address] [place] [address] [place] 25-hydroxyvitamin D3 [Mass/V ol]on 07-11-2024 Interpretation and review of laboratory results Normal [facility] The reference range interval was based on an analysis of samples from healthy adults and may not pertain to children from 0-18 years old. [facility] Calcium.ionized [Moles/Vol]o n 07-11-2024 Calcium.ionized (Bld) [Mass/Vol] 1.27 mmol/L 1.08 - 1.30 mmol/L [facility] Calcium.ionized adjusted to pH 7.4 (Bld) [Moles/Vol] 1.29 mmol/L 1.08 - 1.30 mmol/L [facility] Interpretation and review of laboratory results Normal [facility] Calcium.ionized (Bld) [Mass/Vol] 1.27 mmol/L Normal 1.08-1.30 [facility] Comment on above: Order Comment: Lynn bhardwaj Type: BLOOD SPECIMEN Ordering Facility: [facility] Address: [address] [place] [address] Performed By: #### 2 731-8 #### [facility] CLIA [id number] [address] [place] [address] [place] Calcium.ionized adjusted to pH 7.4 (Bld) [Moles/Vol] 1.29 mmol/L Normal 1.08-1.30 [facility] Comment on above: Order Comment: Lynn bhardwaj Type: BLOOD SPECIMEN Ordering Facility: [facility] Address: [address] [place] [address] Performed By: #### 2 731-8 #### [facility] CLIA [id number] [address] [place] [address] [place] PTH INTACTon 07-11-2024 Parathyrin.intact [Mass/Vol] 27 pg/mL 15 - 65 pg/mL [facility] PTH-Intact SerPl-mCncon 06-25 Parathyrin.intact [Mass/Vol] 27 pg/mL Normal 15-65 [facility] Comment on above: Order Comment: Lynn bhardwaj Type: BLOOD SPECIMEN Ordering Facility: [facility] Address: [address] [place] [address] Performed By: #### 2 731-8 #### [facility] CLIA [id number] [address] [place] [address] [place] Parathyrin.intact [Mass/Vol] on 07-11-2024 Interpretation and review of laboratory results Normal [facility] VITAMIN D 25 HYDROXYon 07-11 25-hydroxyvitamin D3 [Mass/Vol] 49.7 ng/mL 31.0 - 80.0 ng/mL [facility] Comment on above: Classification of 25 OH Vitamin D status: Deficiency/Insufficiency: < or = 30 ng/ml. Sufficiency/Optimal Levels: 31-80 ng/mL Toxicity: > 100 ng/mL. Test performed by chemiluminescent immunoassay. CNOVon 07-04-2024 CNOV Office Visit (FAMPWS ) ----- SARA PEOPLES ([id number]) 1965 F Date Time Provider Department 07/04/24 8:00 AM TIFFANY JOE [facility] During your visit today, we recorded the following information about you: Temperature Pulse Blood pressure Weight 97.7 degrees 69/minute 150/92 101.2 kg Tiffany Joe APRN.[facility] 07/04/2024 8:25 AM Signed This is a 59 year old female who presents today with: Patient presents with: 6 Month Exam HISTORY OF PRESENT ILLNESS: Sara Peoples is a 59 year old female. Patient presents with: 6 Month Exam Gained weight DM: Reports overall feeling well. Medication side effects: No. Home sugar checks: this morning 105 Hypoglycemic spells: No. Watching diet: Yes. Unexpected weight loss: No. Polyuria, polydipsia: No. Luis makes her have dry mouth Vision Changes: Yes. Foot lesions or numbness or pain: No. Quit tobacco in Mar.- gained some weight PAST MEDICAL HISTORY: PAST MEDICAL HISTORY Diagnosis Date Bipolar I disorder, most recent episode (or current) unspecified DM (diabetes mellitus) (HCC) Dysmenorrhea Excessive or frequent menstruation Heavy periods HTN (hypertension) Hypercholesterolemia Irregular menstrual cycle Irregular periods Schizophreniform disorder, chronic condition (HCC) PAST SURGICAL HISTORY Procedure Laterality Date ANTERIOR COLPORRAPHY RPR CYSTOCELE W/CYSTO 05/22/2011 anterior repair APPENDECTOMY 13y/o Was readmitted twice with infection after APPENDECTOMY COLONOSCOPY FLX DX W/COLLJ SPEC WHEN PFRMD 06/26/2016 Colonoscopy COLONOSCOPY FLX DX W/COLLJ SPEC WHEN PFRMD 09/28/2017 Colonoscopy COLONOSCOPY FLX DX W/COLLJ SPEC WHEN PFRMD 12/13/2019 Colonoscopy COLONOSCOPY FLX DX W/COLLJ SPEC WHEN PFRMD 12/13/2019 Colonoscopy COLONOSCOPY FLX DX W/COLLJ SPEC WHEN PFRMD 12/15/2022 repeat 3 years DILATION AND CURETTAGE DXAND/THER NONOBSTETRIC Dilation AND curettage LAPAROSCOPY TOT HYSTERECTOMY >250 G W/TUBE/OVAR 05/22/2011 LAVH, bilateral salpingectomy VAGINAL HYSTERECTOMY ALLERGIES Patient has no known allergies. MEDICATIONS Current Outpatient Medications Medication Sig escitalopram oxalate (LEXAPRO) 5 mg tablet Take 1 tablet by mouth every afternoon. Cholecalciferol, Vitamin D3, 25 mcg (1,000 unit) cap 1 caps daily during the summer, 2 caps daily during winter Patient should start on March 25, 2024. metFORMIN (GLUCOPHAGE) 500 mg tablet Take 1 tablet by mouth two times a day with meals. . Patient should start on March 25, 2024. potassium chloride (K-TAB) 10 mEq tablet Take 1 tablet by mouth two times a day. Patient should start on March 25, 2024. amLODIPine (NORVASC) 5 mg tablet Take 1 tablet by mouth once daily. atorvastatin (LIPITOR) 20 mg tablet Take 1 tablet by mouth daily at bedtime. For cholesterol. hydroCHLOROthiazide 25 mg tablet Take 1 tablet by mouth once daily. losartan (COZAAR) 100 mg tablet Take 1 tablet by mouth once daily. Patient should start on March 25, 2024. benztropine (COGENTIN) 1 mg tablet Take 1 mg by mouth twice daily as needed. OLANZapine (ZYPREXA) 15 mg tablet Take 15 mg by mouth daily at bedtime. blood sugar diagnostic (BLOOD GLUCOSE TEST) test strip Test blood sugar(s1) 1 times daily. Dx: Type 2 DM - Controlled E11.9 Insulin: Yes Lancets lancets Test blood sugar(s) 1 times daily. Dx: Type 2 DM - Controlled E11.9 Insulin: Yes No current facility-administered medications for this visit. FAMILY HISTORY Problem Relation Age of Onset Prostate Cancer Father Genetic Maternal Grandmother Cancer Maternal Grandmother lymphoma Diabetes Maternal Aunt Diabetes Maternal Aunt Social History Tobacco Use Smoking status: Former Current packs/day: 0.10 Average packs/day: 0.1 packs/day for 2.0 years (0.2 ttl pk-yrs) Types: Cigarettes Smokeless tobacco: Current Types: Snuff Tobacco comments: one cigarette daily 35 years ago,no longer smoking now Vaping Use Vaping status: Never Used Substance Use Topics Alcohol use: No Comment: 3/year Drug use: No REVIEW OF SYSTEMS GENERAL: No weight loss, malaise or fevers/chills HEENT: Negative for frequent or significant headaches, No changes in hearing or vision. NECK: Negative for lumps, goiter, pain and significant neck swelling RESPIRATORY: Negative for cough, hemoptysis, wheezing, sometimes dyspnea or shortness of breath CARDIOVASCULAR: Negative for chest pain, leg swelling, orthopnea, or palpitations GI: No nausea, vomiting, or diarrhea/constipation. No hematochezia/melena. No heartburn or reflux symptoms. : No history of dysuria, frequency or incontinence MUSCULOSKELETAL: Negative for joint pain or swelling. SKIN: Negative for lesions, rash, and itching ENDOCRINE: Negative for cold or heat intolerance, no polyuria, + polydipsia and goiter NEURO: No history of headaches, syncope, paraly (more content not included)... Normal [facility] Comprehensive metabolic 2000 panelon 07-04-2024 Albumin [Mass/Vol] 4.5 g/dL Normal 3.9-4.9 [facility] Comment on above: Order Comment: Speci men Type: BLOOD SPECIMEN Ordering Facility: [facility] Address: [address] [place] [address] Performed By: #### 5 7021-8 #### [facility] CLIA [id number] [address] [place] [address] [place] [address] [place] ALP [Catalytic activity/Vol] 68 U/L Normal 34-123 [facility] Comment on above: Order Comment: Speci men Type: BLOOD SPECIMEN Ordering Facility: [facility] Address: [address] [place] [id number] Performed By: #### 5 7021-8 #### [facility] CLIA [id number] [address] [place] [address] [place] ALT [Catalytic activity/Vol] 41 U/L High 7-38 [facility] Comment on above: Order Comment: Speci men Type: BLOOD SPECIMEN Ordering Facility: [facility] Address: [address] [place] [address] Performed By: #### 5 7021-8 #### [facility] CLIA [id number] [address] [place] [address] [place] Anion gap [Moles/Vol] 11 mmol/L Normal 8-15 [facility] Comment on above: Order Comment: Speci men Type: BLOOD SPECIMEN Ordering Facility: [facility] Address: [address] [place] [address] Performed By: #### 5 7021-8 #### [facility] CLIA [id number] [address] [place] [address] [place] AST [Catalytic activity/Vol] 24 U/L Normal 13-35 [facility] Comment on above: Order Comment: Speci men Type: BLOOD SPECIMEN Ordering Facility: [facility] Address: [address] [place] [address] Performed By: #### 5 7021-8 #### [facility] CLIA [id number] [address] [place], [place] [address] [place] Bilirubin [Mass/Vol] 0.3 mg/dL Normal 0.2-1.3 [facility] Comment on above: Order Comment: Speci men Type: BLOOD SPECIMEN Ordering Facility: [facility] Address: [address] [place] [address] Performed By: #### 5 7021-8 #### [facility] CLIA [id number] [address] [place] [address] [place] Calcium [Mass/Vol] 10.5 mg/dL High 8.5-10.2 [facility] Comment on above: Order Comment: Speci men Type: BLOOD SPECIMEN Ordering Facility: [facility] Address: [address] [place] [address] Performed By: #### 5 7021-8 #### [facility] CLIA [id number] [address] [place] [address] [place] Chloride [Moles/Vol] 101 mmol/L Normal 98-107 [facility] Comment on above: Order Comment: Speci men Type: BLOOD SPECIMEN Ordering Facility: [facility] Address: [address] [place] [address] Performed By: #### 5 7021-8 #### [facility] CLIA [id number] [address] [place] [address] [place] CO2 [Moles/Vol] 30 mmol/L Normal 22-30 [facility] Comment on above: Order Comment: Speci men Type: BLOOD SPECIMEN Ordering Facility: [facility] Address: [address] [place] [address] Performed By: #### 5 7021-8 #### [facility] CLIA [id number] [address] [place] [address] [place] Creatinine [Mass/Vol] 0.63 mg/dL Normal 0.58-0.96 [facility] Comment on above: Order Comment: Speci men Type: BLOOD SPECIMEN Ordering Facility: [facility] Address: [address] [place] [address] Performed By: #### 5 7021-8 #### [facility] CLIA [id number] [address] [place] [address] [place] Creatinine and Glomerular filtration rate.predicted panel (S/P/Bld) 102 mL/min/1.73m??? Normal >=60 [facility] Comment on above: Order Comment: Speci men Type: BLOOD SPECIMEN Ordering Facility: [facility] Address: [address] [place] [address] Result Comment: Brianna mated Glomerular Filtration Rate (eGFR) is calculated using the 2020 CKD-EPI creatinine equation. This equation utilizes serum creatinine, sex, and age as parameters. The creatinine assay has traceable calibration to isotope dilution-mass spectrometry. Refer to KDIGO guidelines for clinical interpretation. In patients with unstable renal function, e.g. those with acute kidney injury, the eGFR may not accurately reflect actual GFR. Performed By: #### 5 7021-8 #### [facility] CLIA [id number] [address] [place] [address] [place] Glucose [Mass/Vol] 152 mg/dL High 74-99 [facility] Comment on above: Order Comment: Lynn bhardwaj Type: BLOOD SPECIMEN Ordering Facility: [facility] Address: [address] [place] [address] Result Comment: The [place] Diabetes Association (ADA) provides guidance for cutoff values for fasting glucose and random glucose. The ADA defines fasting as no caloric intake for at least 8 hours. Fasting plasma glucose results between 100 to 125 mg/dL indicate increased risk for diabetes (prediabetes). Fasting plasma glucose results greater than or equal to 126 mg/dL meet the criteria for diagnosis of diabetes. In the absence of unequivocal hyperglycemia, results should be confirmed by repeat testing. In a patient with classic symptoms of hyperglycemia or hyperglycemic crisis, random plasma glucose results greater than or equal to 200 mg/dL meet the criteria for diagnosis of diabetes. Reference: Standards of Medical Care in Diabetes 2016, [place] Diabetes Association. Diabetes Care. 2016.39(Suppl 1). Performed By: #### 5 7021-8 #### [facility] CLIA [id number] [address] [place] [address] [place] Potassium [Moles/Vol] 4.3 mmol/L Normal 3.7-5.1 [facility] Comment on above: Order Comment: Lynn bhardwaj Type: BLOOD SPECIMEN Ordering Facility: [facility] Address: [address] [place], [place] [address] Performed By: #### 5 7021-8 #### [facility] CLIA [id number] [address] [place] [address] [place] Protein [Mass/Vol] 7.7 g/dL Normal 6.3-8.0 [facility] Comment on above: Order Comment: Speci men Type: BLOOD SPECIMEN Ordering Facility: [facility] Address: [address] [place] [address] Performed By: #### 5 7021-8 #### [facility] CLIA [id number] [address] [place] [address] [place] Sodium [Moles/Vol] 142 mmol/L Normal 136-144 [facility] Comment on above: Order Comment: Speci men Type: BLOOD SPECIMEN Ordering Facility: [facility] Address: [address] [place] [address] Performed By: #### 5 7021-8 #### [facility] CLIA [id number] [address] [place] [address] [place] Urea nitrogen [Mass/Vol] 20 mg/dL Normal 7-21 [facility] Comment on above: Order Comment: Speci men Type: BLOOD SPECIMEN Ordering Facility: [facility] Address: [address] [place] [address] Performed By: #### 5 7021-8 #### [facility] CLIA [id number] [address] [place] [address] [place] HbA1c (Bld)on 07-04-2024 Average glucose Estimated from glycated hemoglobin (Bld) [Mass/Vol] 131 mg/dL Normal [facility] Comment on above: Order Comment: Speci men Type: BLOOD SPECIMEN Ordering Facility: [facility] Address: [address] [place] [address] Result Comment: eAG: (Estimated average glucose) is a calculated value from HgbA1c and is labor representative of the average blood glucose level in the last 2-3 month period. Performed By: #### 2 731-8 #### [facility] CLIA [id number] [address] [place] [address] [place] HbA1c (Bld) [Mass fraction] 6.2 % High 4.3-5.6 [facility] Comment on above: Order Comment: Lynn bhardwaj Type: BLOOD SPECIMEN Ordering Facility: [facility] Address: [address] [place] [address] Result Comment: [place] Diabetes Association guidelines indicate that patients with HgbA1c in the range 5.7-6.4% are at increased risk for development of diabetes, and intervention by lifestyle modification may be beneficial. HgbA1c greater or equal to 6.5% is considered diagnostic of diabetes. Performed By: #### 2 731-8 #### [facility] CLIA [id number] [address] [place] [address] [place] LIPID PANEL, NONFASTINGon Cholesterol [Mass/Vol] 191 mg/dL Normal <200 [facility] Comment on above: Order Comment: Lynn bhardwaj Type: BLOOD SPECIMEN Ordering Facility: [facility] Address: [address] [place] [address] Result Comment: <200 mg/dL, Desirable 200-239 mg/dL, Borderline high >239 mg/dL, High Performed By: #### 5 7021-8 #### [facility] CLIA [id number] [address] [place] [address] [place] HDL CHOLESTEROL, NF 60 mg/dL Normal >39 [facility] Comment on above: Order Comment: Lynn bhardwaj Type: BLOOD SPECIMEN Ordering Facility: [facility] Address: [address] [place] [address] Result Comment: 40-5 9 mg/dL, Acceptable >59 mg/dL, High: Negative risk factor for coronary heart disease <40 mg/dL, Low: Positive risk factor for coronary heart disease Performed By: #### 5 7021-8 #### [facility] CLIA [id number] [address] [place] [address] [place] LDL CHOLESTEROL, NF 108 mg/dL High <100 [facility] Comment on above: Order Comment: Lynn bhardwaj Type: BLOOD SPECIMEN Ordering Facility: [facility] Address: [address] [place] [address] Result Comment: <100 mg/dL, Optimal 100-129 mg/dL, Near optimal/above optimal 130-159 mg/dL, Borderline high 160-189 mg/dL, High >189 mg/dL, Very high Secondary prevention optimal LDL Cholesterol levels are recommended to be < 70 mg/dL Performed By: #### 5 7021-8 #### [facility] CLIA [id number] [address] [place], [place] [address] [place] [address] [place] LDL/HDL RATIO, NF 1.80 mg/dL Normal <2.54 [facility] Comment on above: Order Comment: Lynn bhardwaj Type: BLOOD SPECIMEN Ordering Facility: [facility] Address: [address] [place] [address] Result Comment: Refcaoi navarro: 1. National Cholesterol Education Program ATP III Guideline At-A-Glance Quick Desk Reference: National Heart, Lung, and Blood [place]. National Institutes of Health. 2001: NIH Publication No. 01-3305. 2. An International Atherosclerosis Society position paper: global recommendations for the management of dyslipidemia: executive summary, Atherosclerosis. 2014: 232(2):410-413. Performed By: #### 5 7021-8 #### [facility] CLIA [id number] [address] [place], [place] [address] [place] [address] [place] NON HDL CHOL, NF 131 mg/dL High <130 [facility] Comment on above: Order Comment: Lynn bhardwaj Type: BLOOD SPECIMEN Ordering Facility: [facility] Address: [address] [place] [address] Result Comment: <130 mg/dL, Optimal 130-159 mg/dL, Near optimal/above optimal 160-189 mg/dL, Borderline high 190-219 mg/dL, High >219 mg/dL, Very high Secondary prevention optimal non HDL Cholesterol levels are recommended to be <100 mg/dL Performed By: #### 5 7021-8 #### [facility] CLIA [id number] [address] [place] [address] [place] T CHOL/HDL RATIO NF 3.18 mg/dL Normal <5.10 [facility] Comment on above: Order Comment: Speci men Type: BLOOD SPECIMEN Ordering Facility: [facility] Address: [address] [place] [address] Performed By: #### 5 7021-8 #### [facility] CLIA [id number] [address] [place] [address] [place] TRIGLYCERIDES, NF 113 mg/dL Normal <150 [facility] Comment on above: Order Comment: Speci men Type: BLOOD SPECIMEN Ordering Facility: [facility] Address: [address] [place] [address] Result Comment: <150 mg/dL, Normal 150-199 mg/dL, Borderline high 200-499 mg/dL, High >499 mg/dL, Very high Performed By: #### 5 7021-8 #### [facility] CLIA [id number] [address] [place] [address] [place] VLDL CHOLESTEROL, NF 23 mg/dL Normal <30 [facility] Comment on above: Order Comment: Ayanai men Type: BLOOD SPECIMEN Ordering Facility: [facility] Address: [address] [place] [address] Performed By: #### 5 7021-8 #### [facility] CLIA [id number] [address] [place] [address] [place] CNPYolanda 01-05-2024 CNPN Telephone (FAMSabaWS) ----- SARA PEOPLES ([id number]) 1965 F Date Time Provider Department 01/05/24 TIFFANY JOEPWS During your visit today, we recorded the following information about you: Kortney Stephenson MA 01/05/2024 11:04 AM Signed ----- Message from Tiffany Joe sent at 01/05/2024 9:16 AM EDT ----- Blood sugar has been stable. Liver function is slightly elevated. Please avoid excessive use of ayca-sye-hqqwzaa products that contain acetaminophen, naproxen, ibuprofen or alcohol. Potassium level is slightly decreased. Please include foods rich in potassium to your diet such as potato skins, oranges, orange juice, tomato juice and bananas. Kortney Stephenson MA 01/05/2024 11:07 AM Signed Letter mailed to pt home of results. Kortney Stephenson MA Allergies As of Date: 01/05/2024 (No Known Allergies) Date Reviewed: 01/04/2024 Reviewed by: Glenys Masterson MA - Fully Assessed Reason for Visit: Results [95] Prescriptions as of 01/05/2024 - escitalopram oxalate (LEXAPRO) 5 mg tablet Take 1 tablet by mouth every afternoon. - Cholecalciferol, Vitamin D3, 25 mcg (1,000 unit) cap 1 caps daily during the summer, 2 caps daily during winter Patient should start on March 25, 2024. - metFORMIN (GLUCOPHAGE) 500 mg tablet Take 1 tablet by mouth two times a day with meals. . Patient should start on March 25, 2024. - potassium chloride (K-TAB) 10 mEq tablet Take 1 tablet by mouth two times a day. Patient should start on March 25, 2024. - amoxicillin-clavulanate potassium (AUGMENTIN) 875-125 mg per tablet Take 1 tablet by mouth two times a day for 10 days. - amLODIPine (NORVASC) 5 mg tablet Take 1 tablet by mouth once daily. - atorvastatin (LIPITOR) 20 mg tablet Take 1 tablet by mouth daily at bedtime. For cholesterol. - blood sugar diagnostic (BLOOD GLUCOSE TEST) test strip Test blood sugar(s1) 1 times daily. Dx: Type 2 DM - Controlled E11.9 Insulin: Yes - hydroCHLOROthiazide 25 mg tablet Take 1 tablet by mouth once daily. - losartan (COZAAR) 100 mg tablet Take 1 tablet by mouth once daily. Patient should start on March 25, 2024. - benztropine (COGENTIN) 1 mg tablet Take 1 mg by mouth twice daily as needed. - OLANZapine (ZYPREXA) 15 mg tablet Take 15 mg by mouth daily at bedtime. - Lancets lancets Test blood sugar(s) 1 times daily. Dx: Type 2 DM - Controlled E11.9 Insulin: Yes Problem List As Of Date 01/05/2024 Noted Resolved Bipolar I disorder (HCC) [F31.9] 10/04/2007 SCHIZOPHRENIA - CHRONIC [F20.81] 10/04/2007 Irregular menstrual cycle [N92.6] 04/16/2011 07/03/2011 Excessive or frequent menstruation [N92.0] 04/16/2011 07/03/2011 Anemia [D64.9] 05/05/2011 Dysmenorrhea [N94.6] 05/05/2011 07/03/2011 Fibroid [D21.9] 05/15/2011 07/03/2011 HTN (hypertension) [I10] 05/18/2014 Constitutional obesity [E66.8] 06/12/2016 Type 2 diabetes mellitus without complication, *06/17/2017 History of colonic polyps [Z86.010] 12/15/2022 Letter Text Encounter Status:Closed by KORTNEY STEPHENSON on 01/05/24 Normal [facility] 25(OH)D3 [facility] 2023 25-hydroxyvitamin D3 [Mass/Vol] 65.0 ng/mL Normal 31.0-80.0 [facility] Comment on above: Order Comment: Speci men Type: BLOOD SPECIMEN Ordering Facility: [facility] Address: [address] [place] [address] Result Comment: Clas sification of 25 [place] Vitamin D status: Deficiency/Insufficiency: < or = 30 ng/ml. Sufficiency/Optimal Levels: 31-80 ng/mL Toxicity: > 100 ng/mL. Test performed by chemiluminescent immunoassay. Performed By: #### 2 731-8 #### [facility] CLIA [id number] [address] [place] [address] [place] [address] [place] ALBUMIN/CREATININE RATIO, UR INEon 01-04-2024 Albumin DL <= 20 mg/L (U) [Mass/Vol] mg/dL Normal [facility] Comment on above: Order Comment: Speci men Type: URINE SPECIMEN Ordering Facility: [facility] Address: [address] [place] [address] Performed By: #### U ACR #### [facility] CLIA [id number] [address] [place] [address] [place] Albumin/Creatinine (U) [Mass ratio] Normal [facility] Comment on above: Order Comment: Speci men Type: URINE SPECIMEN Ordering Facility: [facility] Address: [address] [place] [address] Result Comment: Not calculated Adult Male and Female Nephrotic Criteria: <30 mg/g is considered normal to mildly increased 30-300 mg/g is considered moderately increased >300 mg/g is considered severely increased KDIGO. (2013). KDIGO 2012 Clinical Practice Guideline for the Evaluation and Management of Chronic Kidney Disease. Official Journal of the International Society of Nephrology, 3(1), 1-150. Performed By: #### U ACR #### [facility] CLIA [id number] [address] [place] [address] [place] Creatinine (U) [Mass/Vol] 25.3 mg/dL Normal 20.0-300.0 [facility] Comment on above: Order Comment: Speci men Type: URINE SPECIMEN Ordering Facility: [facility] Address: [address] [place] [address] Performed By: #### U ACR #### [facility] CLIA [id number] [address] [place] [address] [place] CBC W Auto Differential pane l (Bld)on 01-04-2024 Basophils (Bld) [#/Vol] 0.04 10*3/uL [facility] Basophils/100 WBC (Bld) 0.5 % [facility] Differential cell count method Nom (Bld) Auto [facility] Eosinophils (Bld) [#/Vol] 0.33 10*3/uL [facility] Eosinophils/100 WBC (Bld) 4.1 % [facility] Erythrocyte distribution width (RBC) [Ratio] 14.3 % 11.5 - 15.0 % [facility] Hematocrit (Bld) [Volume fraction] 44.7 % 36.0 - 46.0 % [facility] Hemoglobin (Bld) [Mass/Vol] 14.9 g/dL 11.5 - 15.5 g/dL [facility] Immature granulocytes (Bld) [#/Vol] 0.03 10*3/uL [facility] Immature granulocytes/100 WBC (Bld) 0.4 % [facility] Lymphocytes (Bld) [#/Vol] 1.60 10*3/uL [facility] Lymphocytes/100 WBC (Bld) 19.7 % [facility] MCH (RBC) [Entitic mass] 30.8 pg 26.0 - 34.0 pg [facility] MCHC (RBC) [Mass/Vol] 33.3 g/dL 30.5 - 36.0 g/dL [facility] MCV (RBC) [Entitic vol] 92.4 fL 80.0 - 100.0 fL [facility] Monocytes (Bld) [#/Vol] 0.55 10*3/uL [facility] Monocytes/100 WBC (Bld) 6.8 % [facility] Neutrophils (Bld) [#/Vol] 5.59 10*3/uL [facility] Neutrophils/100 WBC (Bld) 68.5 % [facility] Nucleated RBC (Bld) [#/Vol] [facility] Nucleated RBC/100 WBC (Bld) [Ratio] 0.0 % /100 WBC [facility] Platelet mean volume (Bld) [Entitic vol] 11.4 fL 9.0 - 12.7 fL [facility] Platelets (Bld) [#/Vol] 233 10*3/uL [facility] Comment on above: No clot detected. RBC (Bld) [#/Vol] 4.84 10*6/uL 3.90 - 5.2 0 m/uL [facility] WBC (Bld) [#/Vol] 8.14 10*3/uL [facility] Basophils (Bld) [#/Vol] 0.04 10*3/uL Normal <0.11 [facility] Comment on above: Order Comment: Speci men Type: BLOOD SPECIMEN Ordering Facility: [facility] Address: [address] [place] [address] Performed By: #### 5 7021-8 #### [facility] CLIA [id number] [address] [place] [address] [place] Basophils/100 WBC (Bld) 0.5 % Normal [facility] Comment on above: Order Comment: Speci men Type: BLOOD SPECIMEN Ordering Facility: [facility] Address: [address] [place] [address] Performed By: #### 5 7021-8 #### [facility] CLIA [id number] [address] [place] [address] [place] Differential cell count method Nom (Bld) Auto Normal [facility] Comment on above: Order Comment: Speci men Type: BLOOD SPECIMEN Ordering Facility: [facility] Address: [address] [place] [address] Performed By: #### 5 7021-8 #### [facility] CLIA [id number] [address] [place] [address] [place] Eosinophils (Bld) [#/Vol] 0.33 10*3/uL Normal <0.46 [facility] Comment on above: Order Comment: Speci men Type: BLOOD SPECIMEN Ordering Facility: [facility] Address: [address] [place] [address] Performed By: #### 5 7021-8 #### [facility] CLIA [id number] [address] [place] [address] [place] Eosinophils/100 WBC (Bld) 4.1 % Normal [facility] Comment on above: Order Comment: Speci men Type: BLOOD SPECIMEN Ordering Facility: [facility] Address: [address] [place] [address] Performed By: #### 5 7021-8 #### [facility] CLIA [id number] [address] [place] [address] [place] Erythrocyte distribution width (RBC) [Ratio] 14.3 % Normal 11.5-15.0 [facility] Comment on above: Order Comment: Speci men Type: BLOOD SPECIMEN Ordering Facility: [facility] Address: [address] [place] [address] Performed By: #### 5 7021-8 #### [facility] CLIA [id number] [address] [place] [address] [place] Hematocrit (Bld) [Volume fraction] 44.7 % Normal 36.0-46.0 [facility] Comment on above: Order Comment: Speci men Type: BLOOD SPECIMEN Ordering Facility: [facility] Address: [address] [place] [address] Performed By: #### 5 7021-8 #### [facility] CLIA [id number] [address] [place] [address] [place] Hemoglobin (Bld) [Mass/Vol] 14.9 g/dL Normal 11.5-15.5 [facility] Comment on above: Order Comment: Speci men Type: BLOOD SPECIMEN Ordering Facility: [facility] Address: [address] [place] [address] Performed By: #### 5 7021-8 #### [facility] CLIA [id number] [address] [place] [address] [place] Immature granulocytes (Bld) [#/Vol] 0.03 10*3/uL Normal <0.10 [facility] Comment on above: Order Comment: Speci men Type: BLOOD SPECIMEN Ordering Facility: [facility] Address: [address] [place] [address] Performed By: #### 5 7021-8 #### [facility] CLIA [id number] [address] [place] [address] [place] Immature granulocytes/100 WBC (Bld) 0.4 % Normal [facility] Comment on above: Order Comment: Speci men Type: BLOOD SPECIMEN Ordering Facility: [facility] Address: [address] [place] [address] Performed By: #### 5 7021-8 #### [facility] CLIA [id number] [address] [place] [address] [place] Lymphocytes (Bld) [#/Vol] 1.60 10*3/uL Normal 1.00-4.00 [facility] Comment on above: Order Comment: Speci men Type: BLOOD SPECIMEN Ordering Facility: [facility] Address: [address] [place] [address] Performed By: #### 5 7021-8 #### [facility] CLIA [id number] [address] [place] [address] [place] Lymphocytes/100 WBC (Bld) 19.7 % Normal [facility] Comment on above: Order Comment: Speci men Type: BLOOD SPECIMEN Ordering Facility: [facility] Address: [address] [place] [address] Performed By: #### 5 7021-8 #### [facility] CLIA [id number] [address] [place] [address] [place] MCH (RBC) [Entitic mass] 30.8 pg Normal 26.0-34.0 [facility] Comment on above: Order Comment: Speci men Type: BLOOD SPECIMEN Ordering Facility: [facility] Address: [address] [place] [address] Performed By: #### 5 7021-8 #### [facility] CLIA [id number] [address] [place] [address] [place] MCHC (RBC) [Mass/Vol] 33.3 g/dL Normal 30.5-36.0 [facility] Comment on above: Order Comment: Speci men Type: BLOOD SPECIMEN Ordering Facility: [facility] Address: [address] [place] [address] Performed By: #### 5 7021-8 #### [facility] CLIA [id number] [address] [place] [id number] [place] MCV (RBC) [Entitic vol] 92.4 fL Normal 80.0-100.0 [facility] Comment on above: Order Comment: Speci men Type: BLOOD SPECIMEN Ordering Facility: [facility] Address: [address] [place] [address] Performed By: #### 5 7021-8 #### [facility] CLIA [id number] [address] [place] [address] [place] Monocytes (Bld) [#/Vol] 0.55 10*3/uL Normal <0.87 [facility] Comment on above: Order Comment: Speci men Type: BLOOD SPECIMEN Ordering Facility: [facility] Address: [address] [place] [address] Performed By: #### 5 7021-8 #### [facility] CLIA [id number] [address] [place] [address] [place] Monocytes/100 WBC (Bld) 6.8 % Normal [facility] Comment on above: Order Comment: Speci men Type: BLOOD SPECIMEN Ordering Facility: [facility] Address: [address] [place] [address] Performed By: #### 5 7021-8 #### [facility] CLIA [id number] [address] [place] [address] [place] Neutrophils (Bld) [#/Vol] 5.59 10*3/uL Normal 1.45-7.50 [facility] Comment on above: Order Comment: Speci men Type: BLOOD SPECIMEN Ordering Facility: [facility] Address: [address] [place] [address] Performed By: #### 5 7021-8 #### [facility] CLIA [id number] [address] [place] [address] [place] Neutrophils/100 WBC (Bld) 68.5 % Normal [facility] Comment on above: Order Comment: Speci men Type: BLOOD SPECIMEN Ordering Facility: [facility] Address: [address] [place] [address] Performed By: #### 5 7021-8 #### [facility] CLIA [id number] [address] [place] [address] [place] Nucleated RBC (Bld) [#/Vol] 10*3/uL Normal <0.01 [facility] Comment on above: Order Comment: Speci men Type: BLOOD SPECIMEN Ordering Facility: [facility] Address: [address] [place] [address] Performed By: #### 5 7021-8 #### [facility] CLIA [id number] [address] [place] [address] [place] Nucleated RBC/100 WBC (Bld) [Ratio] 0.0 /100 WBC Normal [facility] Comment on above: Order Comment: Speci men Type: BLOOD SPECIMEN Ordering Facility: [facility] Address: [address] [place] [address] Performed By: #### 5 7021-8 #### [facility] CLIA [id number] [address] [place] [address] [place] Platelet mean volume (Bld) [Entitic vol] 11.4 fL Normal 9.0-12.7 [facility] Comment on above: Order Comment: Speci men Type: BLOOD SPECIMEN Ordering Facility: [facility] Address: [address] [place] [address] Performed By: #### 5 7021-8 #### [facility] CLIA [id number] [address] [place] [address] [place] Platelets (Bld) [#/Vol] 233 10*3/uL Normal 150-400 [facility] Comment on above: Order Comment: Speci men Type: BLOOD SPECIMEN Ordering Facility: [facility] Address: [address] [place] [address] Result Comment: No c lot detected. Performed By: #### 5 7021-8 #### [facility] CLIA [id number] [address] [place] [address] [place] RBC (Bld) [#/Vol] 4.84 10*6/uL Normal 3.90-5.20 [facility] Comment on above: Order Comment: Speci men Type: BLOOD SPECIMEN Ordering Facility: [facility] Address: [address] [place] [address] Performed By: #### 5 7021-8 #### [facility] CLIA [id number] [address] [place] [address] [place] WBC (Bld) [#/Vol] 8.14 10*3/uL Normal 3.70-11.00 [facility] Comment on above: Order Comment: Speci men Type: BLOOD SPECIMEN Ordering Facility: [facility] Address: [address] [place] [address] Performed By: #### 5 7021-8 #### [facility] CLIA [id number] [address] [place] [address] [place] CNOVon 01-04-2024 CNOV Office Visit (FAMPWS ) ----- SARA PEOPLES ([id number]) 1965 F Date Time Provider Department 01/04/24 8:40 AM TIFFANY JOE FAMPWS During your visit today, we recorded the following information about you: Pulse Respiration Blood pressure Weight 92/minute 16/minute 120/82 84.4 kg Tiffany Joe, CUSTOMER RESOLUTION SPECIALIST.[employer]NANT[employer] CUTTER 01/04/2024 10:05 AM Signed This is a 58 year old female who presents today with: No chief complaint on file. HISTORY OF PRESENT ILLNESS: Sara Peoples is a 58 year old female. No chief complaint on file. Here for a check up. Throat feels thick and sore throat off and on for a month. DM: Reports overall feeling well. Medication side effects: No. Home sugar checks: yes Hypoglycemic spells: No. Watching diet: Yes. Unexpected weight loss: No. Polyuria, polydipsia: No. Vision Changes: No. Foot lesions or numbness or pain: No Smoked for 5 years and used snuff for 10 years Quit 5 years ago. PAST MEDICAL HISTORY: PAST MEDICAL HISTORY No date: Bipolar I disorder, most recent episode (or current) unspecified No date: DM (diabetes mellitus) (HCC) No date: Dysmenorrhea No date: Excessive or frequent menstruation Comment: Heavy periods No date: HTN (hypertension) No date: Hypercholesterolemia No date: Irregular menstrual cycle Comment: Irregular periods No date: Schizophreniform disorder, chronic condition (HCC) PAST SURGICAL HISTORY 05/22/2011: ANTERIOR COLPORRAPHY RPR CYSTOCELE W/CYSTO Comment: anterior repair No date: APPENDECTOMY Comment: 13y/o Was readmitted twice with infection after No date: APPENDECTOMY 06/26/2016: COLONOSCOPY FLX DX W/COLLJ SPEC WHEN PFRMD Comment: Colonoscopy 09/28/2017: COLONOSCOPY FLX DX W/COLLJ SPEC WHEN PFRMD Comment: Colonoscopy 12/13/2019: COLONOSCOPY FLX DX W/COLLJ SPEC WHEN PFRMD Comment: Colonoscopy 12/13/2019: COLONOSCOPY FLX DX W/COLLJ SPEC WHEN PFRMD Comment: Colonoscopy 12/15/2022: COLONOSCOPY FLX DX W/COLLJ SPEC WHEN PFRMD Comment: repeat 3 years No date: DILATION AND CURETTAGE DXAND/THER NONOBSTETRIC Comment: Dilation AND curettage 05/22/2011: LAPAROSCOPY TOT HYSTERECTOMY >250 G W/TUBE/OVAR Comment: LAVH, bilateral salpingectomy No date: VAGINAL HYSTERECTOMY ALLERGIES Patient has no known allergies. MEDICATIONS Current Outpatient Medications Medication Sig escitalopram oxalate (LEXAPRO) 5 mg tablet Take 1 tablet by mouth every afternoon. hydroCHLOROthiazide 25 mg tablet Take 1 tablet by mouth once daily. atorvastatin (LIPITOR) 20 mg tablet Take 1 tablet by mouth daily at bedtime. For cholesterol. amLODIPine (NORVASC) 5 mg tablet Take 1 tablet by mouth once daily. benztropine (COGENTIN) 1 mg tablet Take 1 mg by mouth twice daily as needed. OLANZapine (ZYPREXA) 15 mg tablet Take 15 mg by mouth daily at bedtime. blood sugar diagnostic (BLOOD GLUCOSE TEST) test strip Test blood sugar(s1) 1 times daily. Dx: Type 2 DM - Controlled E11.9 Insulin: Yes Lancets lancets Test blood sugar(s) 1 times daily. Dx: Type 2 DM - Controlled E11.9 Insulin: Yes [START ON 03/25/2024] Cholecalciferol, Vitamin D3, 25 mcg (1,000 unit) cap 1 caps daily during the summer, 2 caps daily during winter Patient should start on March 25, 2024. [START ON 03/25/2024] losartan (COZAAR) 100 mg tablet Take 1 tablet by mouth once daily. Patient should start on March 25, 2024. [START ON 03/25/2024] metFORMIN (GLUCOPHAGE) 500 mg tablet Take 1 tablet by mouth two times a day with meals. . Patient should start on March 25, 2024. [START ON 03/25/2024] potassium chloride (K-TAB) 10 mEq tablet Take 1 tablet by mouth two times a day. Patient should start on March 25, 2024. No current facility-administered medications for this visit. FAMILY HISTORY Problem Relation Age of Onset Prostate Cancer Father Genetic Maternal Grandmother Cancer Maternal Grandmother lymphoma Diabetes Maternal Aunt Diabetes Maternal Aunt Social History Tobacco Use Smoking status: Former Current packs/day: 0.10 Average packs/day: 0.1 packs/day for 2.0 years (0.2 ttl pk-yrs) Types: Cigarettes Smokeless tobacco: Current Types: Snuff Tobacco comments: one cigarette daily 35 years ago,no longer smoking now Vaping Use Vaping status: Never Used Substance Use Topics Alcohol use: No Comment: 3/year Drug use: No REVIEW OF SYSTEMS GENERAL: Some weight loss with effort, no malaise or fevers/chills HEENT: Negative for frequent or significant headaches, No changes in hearing or vision. NECK: Negative for lumps, goiter, pain and significant neck swelling RESPIRATORY: + dry cough, no hemoptysis, no wheezing, dyspnea or shortness of breath a little with climbing stairs CARDIOVASCULAR: Negative for chest pain, leg swelling, orthopnea, or palpitations GI: No nausea, vomiting, or diarrhea/constipation. No hematochezia/melena. No heartburn or (more content not included)... Normal [facility] Comprehensive metabolic 2000 panelon 01-04-2024 Albumin [Mass/Vol] 4.6 g/dL 3.9 - 4.9 g/dL [facility] ALP [Catalytic activity/Vol] 73 U/L 34 - 123 U/L [facility] ALT [Catalytic activity/Vol] 50 U/L High 7 - 38 U/L [facility] Anion gap [Moles/Vol] 12 mmol/L 8 - 15 mmol/L [facility] AST [Catalytic activity/Vol] 36 U/L High 13 - 35 U/L [facility] Bilirubin [Mass/Vol] 0.5 mg/dL 0.2 - 1.3 mg/dL [facility] Calcium [Mass/Vol] 9.9 mg/dL 8.5 - 10. 2 mg/dL [facility] Chloride [Moles/Vol] 101 mmol/L 98 - 107 mmol/L [facility] CO2 [Moles/Vol] 28 mmol/L 22 - 30 mmol/L [facility] Creatinine [Mass/Vol] 0.63 mg/dL 0.58 - 0.96 mg/dL [facility] GFR/1.73 sq M.predicted among non-blacks MDRD (S/P/Bld) [Vol rate/Area] 102 mL/min/{1.73_m2} - PINF [facility] Comment on above: Estimated Glomerular Filtration Rate (eGFR) is calculated using the 2020 CKD-EPI creatinine equation. This equation utilizes serum creatinine, sex, and age as parameters. The creatinine assay has traceable calibration to isotope dilution-mass spectrometry. Refer to KDIGO guidelines for clinical interpretation. In patients with unstable renal function, e.g. those with acute kidney injury, the eGFR may not accurately reflect actual GFR. Glucose [Mass/Vol] 106 mg/dL High 74 - 99 mg/dL [facility] Comment on above: The [place] Diab[employer] s Association (ADA) provides guidance for cutoff values for fasting glucose and random glucose. The ADA defines fasting as no caloric intake for at least 8 hours. Fasting plasma glucose results between 100 to 125 mg/dL indicate increased risk for diabetes (prediabetes). Fasting plasma glucose results greater than or equal to 126 mg/dL meet the criteria for diagnosis of diabetes. In the absence of unequivocal hyperglycemia, results should be confirmed by repeat testing. In a patient with classic symptoms of hyperglycemia or hyperglycemic crisis, random plasma glucose results greater than or equal to 200 mg/dL meet the criteria for diagnosis of diabetes. Reference: Standards of Medical Care in Diabetes 2016, [place] [employer]. Diabetes Care. 2016.39(Suppl 1). Potassium [Moles/Vol] 3.4 mmol/L Low 3.7 - 5.1 mmol/L [facility] Protein [Mass/Vol] 7.4 g/dL 6.3 - 8.0 g/dL [facility] Sodium [Moles/Vol] 141 mmol/L 136 - 144 mmol/L [facility] Urea nitrogen [Mass/Vol] 11 mg/dL 7 - 21 mg/dL [facility] Albumin [Mass/Vol] 4.6 g/dL Normal 3.9-4.9 [facility] Comment on above: Order Comment: Lynn bhardwaj Type: BLOOD SPECIMEN Ordering Facility: [facility] Address: [address] [place] [address] Performed By: #### 2 731-8 #### [facility]. [facility] CLIA [id number] [address] [place] [address] [place] ALP [Catalytic activity/Vol] 73 U/L Normal 34-123 [facility] Comment on above: Order Comment: Lynn bhardwaj Type: BLOOD SPECIMEN Ordering Facility: [facility] Address: [address] [place] [address] Performed By: #### 2 731-8 #### [facility] CLIA [id number] [address] [place] [address] [place] ALT [Catalytic activity/Vol] 50 U/L High 7-38 [facility] Comment on above: Order Comment: Ayanai lashae Type: BLOOD SPECIMEN Ordering Facility: [facility] Address: [address] [place] [address] Performed By: #### 2 731-8 #### [facility] CLIA [id number] [address] [place] [address] [place] Anion gap [Moles/Vol] 12 mmol/L Normal 8-15 [facility] Comment on above: Order Comment: Speci men Type: BLOOD SPECIMEN Ordering Facility: [facility] Address: [address] [place] [address] Performed By: #### 2 731-8 #### [facility] CLIA [id number] [address] [place] [address] [place] AST [Catalytic activity/Vol] 36 U/L High 13-35 [facility] Comment on above: Order Comment: Speci men Type: BLOOD SPECIMEN Ordering Facility: [facility] Address: [address] [place] [address] Performed By: #### 2 731-8 #### [facility] CLIA [id number] [address] [place] [address] [place] Bilirubin [Mass/Vol] 0.5 mg/dL Normal 0.2-1.3 [facility] Comment on above: Order Comment: Speci men Type: BLOOD SPECIMEN Ordering Facility: [facility] Address: [address] [place] [address] Performed By: #### 2 731-8 #### [facility] CLIA [id number] [address] [place] [address] [place] Calcium [Mass/Vol] 9.9 mg/dL Normal 8.5-10.2 [facility] Comment on above: Order Comment: Speci men Type: BLOOD SPECIMEN Ordering Facility: [facility] Address: [address] [place] [address] Performed By: #### 2 731-8 #### [facility] CLIA [id number] [address] [place] [address] [place] Chloride [Moles/Vol] 101 mmol/L Normal 98-107 [facility] Comment on above: Order Comment: Speci men Type: BLOOD SPECIMEN Ordering Facility: [facility] Address: [address] [place] [address] Performed By: #### 2 731-8 #### [facility] CLIA [id number] [address] [place] [address] [place] CO2 [Moles/Vol] 28 mmol/L Normal 22-30 [facility] Comment on above: Order Comment: Speci men Type: BLOOD SPECIMEN Ordering Facility: [facility] Address: [address] [place] [address] Performed By: #### 2 731-8 #### [facility] CLIA [id number] [address] [place] [address] [place] Creatinine [Mass/Vol] 0.63 mg/dL Normal 0.58-0.96 [facility] Comment on above: Order Comment: Speci men Type: BLOOD SPECIMEN Ordering Facility: [facility] Address: [address] [place] [address] Performed By: #### 2 731-8 #### [facility] CLIA [id number] [address] [place] [address] [place] Creatinine and Glomerular filtration rate.predicted panel (S/P/Bld) 102 mL/min/1.73m??? Normal >=60 [facility] Comment on above: Order Comment: Speci men Type: BLOOD SPECIMEN Ordering Facility: [facility] Address: [address] [place] [address] Result Comment: Brianna mated Glomerular Filtration Rate (eGFR) is calculated using the 2020 CKD-EPI creatinine equation. This equation utilizes serum creatinine, sex, and age as parameters. The creatinine assay has traceable calibration to isotope dilution-mass spectrometry. Refer to KDIGO guidelines for clinical interpretation. In patients with unstable renal function, e.g. those with acute kidney injury, the eGFR may not accurately reflect actual GFR. Performed By: #### 2 731-8 #### [facility] CLIA [id number] [address] [place] [address] [place] Glucose [Mass/Vol] 106 mg/dL High 74-99 [facility] Comment on above: Order Comment: Speci men Type: BLOOD SPECIMEN Ordering Facility: [facility] Address: [address] [id number] Result Comment: The [place] Diabetes Association (ADA) provides guidance for cutoff values for fasting glucose and random glucose. The ADA defines fasting as no caloric intake for at least 8 hours. Fasting plasma glucose results between 100 to 125 mg/dL indicate increased risk for diabetes (prediabetes). Fasting plasma glucose results greater than or equal to 126 mg/dL meet the criteria for diagnosis of diabetes. In the absence of unequivocal hyperglycemia, results should be confirmed by repeat testing. In a patient with classic symptoms of hyperglycemia or hyperglycemic crisis, random plasma glucose results greater than or equal to 200 mg/dL meet the criteria for diagnosis of diabetes. Reference: Standards of Medical Care in Diabetes 2016, [place] Diabetes Association. Diabetes Care. 2016.39(Suppl 1). Performed By: #### 2 731-8 #### [facility] CLIA [id number] [address] [place] [address] [place] Potassium [Moles/Vol] 3.4 mmol/L Low 3.7-5.1 [facility] Comment on above: Order Comment: Speci men Type: BLOOD SPECIMEN Ordering Facility: [facility] Address: [address] [place] [address] Performed By: #### 2 731-8 #### [facility] CLIA [id number] [address] [place] [address] [place] Protein [Mass/Vol] 7.4 g/dL Normal 6.3-8.0 [facility] Comment on above: Order Comment: Speci men Type: BLOOD SPECIMEN Ordering Facility: [facility] Address: [address] [place] [address] Performed By: #### 2 731-8 #### [facility] CLIA [id number] [address] [place] [address] [place] Sodium [Moles/Vol] 141 mmol/L Normal 136-144 [facility] Comment on above: Order Comment: Speci men Type: BLOOD SPECIMEN Ordering Facility: [facility] Address: [address] [place] [address] Performed By: #### 2 731-8 #### [facility] CLIA [id number] [address] [place] [address] [place] Urea nitrogen [Mass/Vol] 11 mg/dL Normal 7-21 [facility] Comment on above: Order Comment: Lynn bhardwaj Type: BLOOD SPECIMEN Ordering Facility: [facility] Address: [address] [place] [address] Performed By: #### 2 731-8 #### [facility] CLIA [id number] [address] [place] [address] [place] HbA1c (Bld)on 01-04-2024 Average glucose Estimated from glycated hemoglobin (Bld) [Mass/Vol] 126 mg/dL Normal [facility] Comment on above: Order Comment: Lynn bhardwaj Type: BLOOD SPECIMEN Ordering Facility: [facility] Address: [address] [place] [address] Result Comment: eAG: (Estimated average glucose) is a calculated value from HgbA1c and is labor representative of the average blood glucose level in the last 2-3 month period. Performed By: #### 5 7021-8 #### [facility] CLIA [id number] [address] [place] [address] [place] HbA1c (Bld) [Mass fraction] 6.0 % High 4.3-5.6 [facility] Comment on above: Order Comment: Lynn bhardwaj Type: BLOOD SPECIMEN Ordering Facility: [facility] Address: [address] [place] [address] Result Comment: [place] Diabetes Association guidelines indicate that patients with HgbA1c in the range 5.7-6.4% are at increased risk for development of diabetes, and intervention by lifestyle modification may be beneficial. HgbA1c greater or equal to 6.5% is considered diagnostic of diabetes. Performed By: #### 5 7021-8 #### [facility] CLIA [id number] [address] [place] [address] [place] LIPID PANEL, NONFASTINGon Cholesterol [Mass/Vol] 181 mg/dL NINF - 200 mg/dL [facility] Comment on above: <200 mg/dL, Desirabl e 200-239 mg/dL, Borderline high >239 mg/dL, High HDL Cholesterol, Nonfasting 49 mg/dL 39 - PINF mg/dL [facility] Comment on above: 40-59 mg/dL, Accepta ble >59 mg/dL, High: Negative risk factor for coronary heart disease <40 mg/dL, Low: Positive risk factor for coronary heart disease LDL Cholesterol, Nonfasting 97 mg/dL NINF - 100 mg/dL [facility] Comment on above: <100 mg/dL, Optimal 100-129 mg/dL, Near optimal/above optimal 130-159 mg/dL, Borderline high 160-189 mg/dL, High >189 mg/dL, Very high Secondary prevention optimal LDL Cholesterol levels are recommended to be < 70 mg/dL LDL/HDL Ratio, Nonfasting 1.98 mg/dL NINF - 2.54 mg/dL [facility] Comment on above: Reference: 1. National Cholesterol Education Program ATP III Guideline At-A-Glance Quick Desk Reference: National Heart, Lung, and Blood [place]. National Institutes of Health. 2001: NIH Publication No. 01-3305. 2. An International Atherosclerosis Society position paper: global recommendations for the management of dyslipidemia: executive summary, Atherosclerosis. 2014: 232(2):410-413. Non HDL Cholesterol, Nonfasting 132 mg/dL High NINF - 130 mg/dL [facility] Comment on above: <130 mg/dL, Optimal 130-159 mg/dL, Near optimal/above optimal 160-189 mg/dL, Borderline high 190-219 mg/dL, High >219 mg/dL, Very high Secondary prevention optimal non HDL Cholesterol levels are recommended to be <100 mg/dL Total Chol/HDL Ratio, Nonfasting 3.69 mg/dL NINF - 5.10 mg/dL [facility] Triglycerides, Nonfasting 177 mg/dL High NINF - 150 mg/dL [facility] Comment on above: <150 mg/dL, Normal 150-199 mg/dL, Borderline high 200-499 mg/dL, High >499 mg/dL, Very high VLDL Cholesterol, Nonfasting 35 mg/dL High NINF - 30 mg/dL [facility] Cholesterol [Mass/Vol] 181 mg/dL Normal <200 [facility] Comment on above: Order Comment: Speci men Type: BLOOD SPECIMEN Ordering Facility: [facility] Address: [address] [place] [address] Result Comment: <200 mg/dL, Desirable 200-239 mg/dL, Borderline high >239 mg/dL, High Performed By: #### 2 731-8 #### [facility] CLIA [id number] [address] [place] [address] [place] HDL CHOLESTEROL, NF 49 mg/dL Normal >39 [facility] Comment on above: Order Comment: Speci men Type: BLOOD SPECIMEN Ordering Facility: [facility] Address: [address] [place] [address] Result Comment: 40-5 9 mg/dL, Acceptable >59 mg/dL, High: Negative risk factor for coronary heart disease <40 mg/dL, Low: Positive risk factor for coronary heart disease Performed By: #### 2 731-8 #### [facility] CLIA [id number] [address] [place] [address] [place] LDL CHOLESTEROL, NF 97 mg/dL Normal <100 [facility] Comment on above: Order Comment: Ayanai men Type: BLOOD SPECIMEN Ordering Facility: [facility] Address: [address] [place] [address] Result Comment: <100 mg/dL, Optimal 100-129 mg/dL, Near optimal/above optimal 130-159 mg/dL, Borderline high 160-189 mg/dL, High >189 mg/dL, Very high Secondary prevention optimal LDL Cholesterol levels are recommended to be < 70 mg/dL Performed By: #### 2 731-8 #### [facility] CLIA [id number] [address] [place] [address] [place] LDL/HDL RATIO, NF 1.98 mg/dL Normal <2.54 [facility] Comment on above: Order Comment: Speci men Type: BLOOD SPECIMEN Ordering Facility: [facility] Address: [address] [place] [address] Result Comment: Refe rence: 1. National Cholesterol Education Program ATP III Guideline At-A-Glance Quick Desk Reference: National Heart, Lung, and Blood [place]. National Institutes of Health. 2001: NIH Publication No. 01-3305. 2. An International Atherosclerosis Society position paper: global recommendations for the management of dyslipidemia: executive summary, Atherosclerosis. 2014: 232(2):410-413. Performed By: #### 2 731-8 #### [facility] CLIA [id number] [address] [place] [address] [place] NON HDL CHOL, NF 132 mg/dL High <130 [facility] Comment on above: Order Comment: Lynn bhardwaj Type: BLOOD SPECIMEN Ordering Facility: [facility] Address: [address] [place] [address] Result Comment: <130 mg/dL, Optimal 130-159 mg/dL, Near optimal/above optimal 160-189 mg/dL, Borderline high 190-219 mg/dL, High >219 mg/dL, Very high Secondary prevention optimal non HDL Cholesterol levels are recommended to be <100 mg/dL Performed By: #### 2 731-8 #### [facility] CLIA [id number] [address] [place] [address] [place] T CHOL/HDL RATIO NF 3.69 mg/dL Normal <5.10 [facility] Comment on above: Order Comment: Lynn bhardwaj Type: BLOOD SPECIMEN Ordering Facility: [facility] Address: [address] [place] [address] Performed By: #### 2 731-8 #### [facility] CLIA [id number] [address] [place] [address] [place] TRIGLYCERIDES, NF 177 mg/dL High <150 [facility] Comment on above: Order Comment: Lynn bhardwaj Type: BLOOD SPECIMEN Ordering Facility: [facility] Address: [address] [place] [address] Result Comment: <150 mg/dL, Normal 150-199 mg/dL, Borderline high 200-499 mg/dL, High >499 mg/dL, Very high Performed By: #### 2 731-8 #### [facility] CLIA [id number] [address] [place] [address] [place] VLDL CHOLESTEROL, NF 35 mg/dL High <30 [facility] Comment on above: Order Comment: Speci men Type: BLOOD SPECIMEN Ordering Facility: [facility] Address: [address] [place] [address] Performed By: #### 2 731-8 #### [facility] CLIA [id number] [address] [place], [place] [id number] [place] MAGNESIUMon 01-04-2024 Magnesium [Mass/Vol] 2.1 mg/dL 1.7 - 2.3 mg/dL [facility] Magnesium SerPl-mCncon 01-03 Magnesium [Mass/Vol] 2.1 mg/dL Normal 1.7-2.3 [facility] Comment on above: Order Comment: Speci men Type: BLOOD SPECIMEN Ordering Facility: [facility] Address: [address] [place] [address] Performed By: #### 2 731-8 #### [facility] CLIA [id number] [address] [place] [address] [place] Magnesium [Mass/Vol]on 01-03 Interpretation and review of laboratory results Normal [facility] No Panel Informationon 01-03 Interpretation and review of laboratory results Abnormal [facility] THYROID STIMULATING HORMONEo n 01-04-2024 TSH Qn 4.000 m[IU]/L [facility] TSH Qnon 01-04-2024 Interpretation and review of laboratory results Normal [facility] TSH SerPl-aCncon 01-04-2024 TSH Qn 4.000 m[IU]/L Normal 0.270-4.200 [facility] Comment on above: Order Comment: Speci men Type: BLOOD SPECIMEN Ordering Facility: [facility] Address: [address] [place], [place] [id number] Performed By: #### 2 731-8 #### [facility] CLIA [id number] [facility] [place] [address] [place] Vit B12 [facility] 024 Cobalamin (Vitamin B12) [Mass/Vol] 1311 pg/mL High 232-1245 [facility] Comment on above: Order Comment: Speci men Type: BLOOD SPECIMEN Ordering Facility: [facility] Address: [address] [place] [address] Performed By: #### 5 7021-8 #### [facility] CLIA [id number] [address] [place], [place] [address] [place] [address] [place] CBC W Auto Differential pane l (Bld)on 06-29-2023 Basophils (Bld) [#/Vol] 0.06 10*3/uL <0.11 k/uL [facility] Basophils/100 WBC (Bld) 0.6 % [facility] Differential cell count method Nom (Bld) Auto [facility] Eosinophils (Bld) [#/Vol] 0.26 10*3/uL <0.46 k/uL [facility] Eosinophils/100 WBC (Bld) 2.8 % [facility] Erythrocyte distribution width (RBC) [Ratio] 13.8 % 11.5 - 15.0 % [facility] Hematocrit (Bld) [Volume fraction] 43.9 % 36.0 - 46.0 % [facility] Hemoglobin (Bld) [Mass/Vol] 14.8 g/dL 11.5 - 15.5 g/dL [facility] Immature granulocytes (Bld) [#/Vol] 0.03 10*3/uL <0.10 k/uL [facility] Immature granulocytes/100 WBC (Bld) 0.3 % [facility] Lymphocytes (Bld) [#/Vol] 1.65 10*3/uL 1.00 - 4.00 k/uL [facility] Lymphocytes/100 WBC (Bld) 17.5 % [facility] MCH (RBC) [Entitic mass] 29.8 pg 26.0 - 34.0 pg [facility] MCHC (RBC) [Mass/Vol] 33.7 g/dL 30.5 - 36.0 g/dL [facility] MCV (RBC) [Entitic vol] 88.3 fL 80.0 - 100.0 fL [facility] Monocytes (Bld) [#/Vol] 0.54 10*3/uL <0.87 k/uL [facility] Monocytes/100 WBC (Bld) 5.7 % [facility] Neutrophils (Bld) [#/Vol] 6.88 10*3/uL 1.45 - 7.50 k/uL [facility] Neutrophils/100 WBC (Bld) 73.1 % [facility] Nucleated RBC (Bld) [#/Vol] <0.01 k/uL [facility] Nucleated RBC/100 WBC (Bld) [Ratio] 0.0 /100 WBC [facility] Platelet mean volume (Bld) [Entitic vol] 10.1 fL 9.0 - 12.7 fL [facility] Platelets (Bld) [#/Vol] 331 10*3/uL 150 - 400 k/uL [facility] RBC (Bld) [#/Vol] 4.97 10*6/uL 3.90 - 5.2 0 m/uL [facility] WBC (Bld) [#/Vol] 9.42 10*3/uL 3.70 - 11. 00 k/uL [facility] Comprehensive metabolic 2000 panelon 06-29-2023 Albumin [Mass/Vol] 4.6 g/dL 3.9 - 4.9 g/dL [facility] ALP [Catalytic activity/Vol] 77 U/L 34 - 123 U/L [facility] ALT [Catalytic activity/Vol] 46 U/L High 7 - 38 U/L [facility] Anion gap [Moles/Vol] 17 mmol/L 9 - 18 mmol/L [facility] AST [Catalytic activity/Vol] 27 U/L 13 - 35 U/L [facility] Bilirubin [Mass/Vol] 0.4 mg/dL 0.2 - 1.3 mg/dL [facility] Calcium [Mass/Vol] 9.7 mg/dL 8.5 - 10. 2 mg/dL [facility] Chloride [Moles/Vol] 99 mmol/L 97 - 105 mmol/L [facility] CO2 [Moles/Vol] 23 mmol/L 22 - 30 mmol/L [facility] Creatinine [Mass/Vol] 0.55 mg/dL Low 0.58 - 0.96 mg/dL [facility] Estimated Glomerular Filtration Rate 106 mL/min/1.73m >=60 mL/min/1.73m [facility] Glucose [Mass/Vol] 82 mg/dL 74 - 99 mg/dL [facility] Potassium [Moles/Vol] 3.5 mmol/L Low 3.7 - 5.1 mmol/L [facility] Protein [Mass/Vol] 7.7 g/dL 6.3 - 8.0 g/dL [facility] Sodium [Moles/Vol] 139 mmol/L 136 - 144 mmol/L [facility] Urea nitrogen [Mass/Vol] 11 mg/dL 7 - 21 mg/dL [facility] HbA1c (Bld)on 06-29-2023 Average glucose Estimated from glycated hemoglobin (Bld) [Mass/Vol] 131 mg/dL [facility] HbA1c (Bld) [Mass fraction] 6.2 % High 4.3 - 5.6 % [facility] Lipid 1996 panelon Cholesterol [Mass/Vol] 154 mg/dL <200 mg/dL [facility] Cholesterol in HDL [Mass/Vol] 43 mg/dL >39 mg/dL [facility] Cholesterol in LDL [Mass/Vol] 81 mg/dL <100 mg/dL [facility] Cholesterol in LDL/Cholesterol in HDL [Mass ratio] 1.88 {ratio} <2.54 [facility] Cholesterol in VLDL [Mass/Vol] 30 mg/dL High <30 mg/dL [facility] Cholesterol non HDL [Mass/Vol] 111 mg/dL <130 mg/dL [facility] Cholesterol.total/C holesterol in HDL [Mass ratio] 3.58 {ratio} <5.10 [facility] Fasting Time 13 hrs [facility] Triglyceride [Mass/Vol] 149 mg/dL <150 mg/dL [facility] CBC W Auto Differential pane l (Bld)on 11-11-2022 Basophils (Bld) [#/Vol] 0.07 10*3/uL <0.11 k/uL [facility] Basophils/100 WBC (Bld) 0.7 % [facility] Differential cell count method Nom (Bld) Auto [facility] Eosinophils (Bld) [#/Vol] 0.37 10*3/uL <0.46 k/uL [facility] Eosinophils/100 WBC (Bld) 3.7 % [facility] Erythrocyte distribution width (RBC) [Ratio] 13.9 % 11.5 - 15.0 % [facility] Hematocrit (Bld) [Volume fraction] 44.2 % 36.0 - 46.0 % [facility] Hemoglobin (Bld) [Mass/Vol] 14.5 g/dL 11.5 - 15.5 g/dL [facility] Immature granulocytes (Bld) [#/Vol] 0.04 10*3/uL <0.10 k/uL [facility] Immature granulocytes/100 WBC (Bld) 0.4 % [facility] Lymphocytes (Bld) [#/Vol] 1.82 10*3/uL 1.00 - 4.00 k/uL [facility] Lymphocytes/100 WBC (Bld) 18.3 % [facility] MCH (RBC) [Entitic mass] 30.3 pg 26.0 - 34.0 pg [facility] MCHC (RBC) [Mass/Vol] 32.8 g/dL 30.5 - 36.0 g/dL [facility] MCV (RBC) [Entitic vol] 92.3 fL 80.0 - 100.0 fL [facility] Monocytes (Bld) [#/Vol] 0.67 10*3/uL <0.87 k/uL [facility] Monocytes/100 WBC (Bld) 6.7 % [facility] Neutrophils (Bld) [#/Vol] 6.96 10*3/uL 1.45 - 7.50 k/uL [facility] Neutrophils/100 WBC (Bld) 70.2 % [facility] Nucleated RBC (Bld) [#/Vol] <0.01 k/uL [facility] Nucleated RBC/100 WBC (Bld) [Ratio] 0.0 /100 WBC [facility] Platelet mean volume (Bld) [Entitic vol] 10.1 fL 9.0 - 12.7 fL [facility] Platelets (Bld) [#/Vol] 349 10*3/uL 150 - 400 k/uL [facility] RBC (Bld) [#/Vol] 4.79 10*6/uL 3.90 - 5.2 0 m/uL [facility] WBC (Bld) [#/Vol] 9.93 10*3/uL 3.70 - 11. 00 k/uL [facility] Vital Signs Date Time Vital Sign Value Performing Clinician Faci margaret 09-26-2024 14:47-0400 Body mass index (BMI) [Ratio] 39.68 kg/m2 Anand Colbert MD Work Phone: [facility] 09-26-2024 14:47-0400 Body weight 101.61 kg Anand Colbert MD Work Phone: [facility] 09-26-2024 14:47-0400 Diastolic blood pressure 82 mm[Hg] Anand Colbert MD Work Phone: [facility] 09-26-2024 14:47-0400 Heart rate 88 /min Anand Colbert MD Work Phone: [facility] 09-26-2024 14:47-0400 SaO2% (BldA) [Mass fraction] 91 % Anand Colbert MD Work Phone: [facility] 09-26-2024 14:47-0400 Systolic blood pressure 124 mm[Hg] Anand Colbert MD Work Phone: [facility] 09-06-2024 15:27-0400 Body height 160 cm Anand Colbert MD Work Phone: [facility] [facility] 09-06-2024 15:27-0400 Body mass index (BMI) [Ratio] 39.86 kg/m2 Anand Colbert MD Work Phone: [facility] 09-06-2024 15:27-0400 Body weight 102.06 kg Anand Colbert MD Work Phone: [facility] 09-06-2024 15:27-0400 Diastolic blood pressure 84 mm[Hg] Anand Colbert MD Work Phone: [facility] 09-06-2024 15:27-0400 Heart rate 74 /min Anand Colbert MD Work Phone: [facility] 09-06-2024 15:27-0400 SaO2% (BldA) [Mass fraction] 92 % Anand Colbert MD Work Phone: [facility] 09-06-2024 15:27-0400 Systolic blood pressure 136 mm[Hg] Anand Colbert MD Work Phone: [facility] 07-04-2024 08:19-0400 Diastolic blood pressure 92 mm[Hg] Tiffany Suppan CUSTOMER RESOLUTION SPECIALIST.[employer] Work Phone: [facility] 07-04-2024 08:19-0400 Systolic blood pressure 150 mm[Hg] Tiffany Suppan CUSTOMER RESOLUTION SPECIALIST.[employer]NA[employer] C[employer] Work Phone: [facility] 07-04-2024 07:46-0400 Body mass index (BMI) [Ratio] 39.5 kg/m2 Tiffany Suppan CUSTOMER RESOLUTION SPECIALIST.[employer]NA[employer] C[employer] Work Phone: [facility] 07-04-2024 07:46-0400 Body temperature 97.7 [degF] Tiffany Suppan CUSTOMER RESOLUTION SPECIALIST.[employer]NA[employer] Work Phone: [facility] 07-04-2024 07:46-0400 Body weight 101.15 kg Tiffany Suppan CUSTOMER RESOLUTION SPECIALIST.[employer] Work Phone: [facility] 07-04-2024 07:46-0400 Heart rate 69 /min Tiffany Suppan CUSTOMER RESOLUTION SPECIALIST.[employer] C[employer]TER Work Phone: [facility] 07-04-2024 07:46-0400 SaO2% (BldA) [Mass fraction] 96 % Tiffany Suppan CUSTOMER RESOLUTION SPECIALIST.[employer] Work Phone: [facility] 01-04-2024 08:35-0400 Body mass index (BMI) [Ratio] 32.95 kg/m2 Tiffany Suppan CUSTOMER RESOLUTION SPECIALIST.[employer] Work Phone: [facility] 01-04-2024 08:35-0400 Body weight 84.37 kg Tiffany Suppan CUSTOMER RESOLUTION SPECIALIST.[employer] Work Phone: [facility] 01-04-2024 08:35-0400 Diastolic blood pressure 82 mm[Hg] Tiffany Suppan CUSTOMER RESOLUTION SPECIALIST.[employer] Work Phone: [facility] 01-04-2024 08:35-0400 Heart rate 92 /min Tiffany Suppan CUSTOMER RESOLUTION SPECIALIST.[employer] Work Phone: [facility] 01-04-2024 08:35-0400 Respiratory rate 16 /min Tiffany Supprossi CUSTOMER RESOLUTION SPECIALIST.[employer] Work Phone: [facility] 01-04-2024 08:35-0400 SaO2% (BldA) [Mass fraction] 96 % Tiffany Suppan CUSTOMER RESOLUTION SPECIALIST.[employer] Work Phone: [facility] 01-04-2024 08:35-0400 Systolic blood pressure 120 mm[Hg] Tiffany Supprossi CUSTOMER RESOLUTION SPECIALIST.[employer] Work Phone: [facility] 06-29-2023 10:07-0500 Body weight 92.99 kg NA Blue PA-C Work Phone: [facility] 06-29-2023 10:07-0500 Diastolic blood pressure 88 mm[Hg] NA Blue PA-C Work Phone: [facility] 06-29-2023 10:07-0500 Heart rate 88 /min NA Blue PA-C Work Phone: [facility] 06-29-2023 10:07-0500 Respiratory rate 18 /min NA Blue PA-C Work Phone: [facility] 06-29-2023 10:07-0500 SaO2% (BldA) [Mass fraction] 95 % NA Bleu PA-C Work Phone: [facility] 06-29-2023 10:07-0500 Systolic blood pressure 118 mm[Hg] NA Blue PA-C Work Phone: [facility] 12-23-2022 09:10-0400 Body height 160 cm Eugneia Ana PA-C Work Phone: [facility] 12-23-2022 09:10-0400 Body temperature 97.7 [degF] Eugenia Etna PA-C Work Phone: [facility] 12-23-2022 09:10-0400 Body weight 92.08 kg Eugenia Ana PA-C Work Phone: [facility] 12-23-2022 09:10-0400 Diastolic blood pressure 84 mm[Hg] Eugenia Ana PA-C Work Phone: [facility] 12-23-2022 09:10-0400 Heart rate 96 /min Eugenia Etna PA-C Work Phone: [facility] 12-23-2022 09:10-0400 SaO2% (BldA) [Mass fraction] 95 % Eugenia Etna PA-C Work Phone: [facility] 12-23-2022 09:10-0400 Systolic blood pressure 122 mm[Hg] Eugenia Etna PA-C Work Phone: [facility] 11-11-2022 07:56-0400 Body weight 91.17 kg NA Blue PA-C Work Phone: [facility] 11-11-2022 07:56-0400 Diastolic blood pressure 86 mm[Hg] NA Blue PA-C Work Phone: [facility] 11-11-2022 07:56-0400 Heart rate 81 /min NA Blue PA-C Work Phone: [facility] 11-11-2022 07:56-0400 Respiratory rate 20 /min NA Blue PA-C Work Phone: [facility] 11-11-2022 07:56-0400 SaO2% (BldA) [Mass fraction] 97 % NA Blue PA-C Work Phone: [facility] 11-11-2022 07:56-0400 Systolic blood pressure 124 mm[Hg] NA Blue PA-C Work Phone: [facility] 07-29-2022 08:03-0400 Body height 160 cm Eugenia Ana PA-C Work Phone: [facility] 07-29-2022 08:03-0400 Body temperature 97.9 [degF] Eugenia Ana PA-C Work Phone: [facility] 07-29-2022 08:03-0400 Body weight 91.99 kg Eugenia Ana PA-C Work Phone: [facility] 07-29-2022 08:03-0400 Diastolic blood pressure 86 mm[Hg] Eugenia Etna PA-C Work Phone: [facility] 07-29-2022 08:03-0400 Heart rate 103 /min Eugenia Ana PA-C Work Phone: [facility] 07-29-2022 08:03-0400 SaO2% (BldA) [Mass fraction] 96 % Eugenia Etna PA-C Work Phone: [facility] 07-29-2022 08:03-0400 Systolic blood pressure 130 mm[Hg] Eugenia Etna PA-C Work Phone: [facility] 05-12-2022 08:40-0500 Body weight 92.99 kg NA Blue PA-C Work Phone: [facility] 05-12-2022 08:40-0500 Diastolic blood pressure 88 mm[Hg] NA Blue PA-C Work Phone: [facility] 05-12-2022 08:40-0500 Heart rate 96 /min NA Blue PA-C Work Phone: [facility] 05-12-2022 08:40-0500 SaO2% (BldA) [Mass fraction] 95 % NA Blue PA-C Work Phone: [facility] 05-12-2022 08:40-0500 Systolic blood pressure 130 mm[Hg] NA Blue PA-C Work Phone: [facility] 11-11-2021 08:02-0400 Body height 160 cm NA Blue PA-C Work Phone: [facility] 11-11-2021 08:02-0400 Body weight 90.72 kg NA Blue PA-C Work Phone: [facility] 11-11-2021 08:02-0400 Diastolic blood pressure 76 mm[Hg] NA Blue PA-C Work Phone: [facility] 11-11-2021 08:02-0400 Heart rate 89 /min NA Blue PA-C Work Phone: [facility] 11-11-2021 08:02-0400 Respiratory rate 18 /min NA Blue PA-C Work Phone: [facility] 11-11-2021 08:02-0400 SaO2% (BldA) [Mass fraction] 96 % NA Blue PA-C Work Phone: [facility] 11-11-2021 08:02-0400 Systolic blood pressure 128 mm[Hg] NA Blue PA-C Work Phone: [facility] Encounters Encounter Date Encounter Type Care Provider Facility Start: 09-26-2024 End: 09-26-2024 Patient encounter procedure Anand Colbert MD Work Phone: [facility] [place] Comment on above: Edema, unspecified t ype (Primary Dx); Essential hypertension; Class 2 obesity with body mass index (BMI) of 39.0 to 39.9 in adult, unspecified obesity type, unspecified whether serious comorbidity present Start: 09-26-2024 End: 09-26-2024 ambulatory ANAND COLBERT Facility:[facility] Start: 09-21-2024 End: 09-21-2024 ambulatory Anand Colbert MD Work Phone: [facility] [place] Comment on above: Leg Edema Start: 09-06-2024 End: 09-06-2024 Office outpatient visit 25 minutes Anand Colbert MD Work Phone: [facility] [place] Comment on above: Essential hypertensi on (Primary Dx); Fatty liver; Type 2 diabetes mellitus without complication, without long-term current use of insulin (HCC); Schizophreniform disorder, chronic condition (HCC) Start: 09-06-2024 End: 09-06-2024 ambulatory SELF Facility:[facility] Start: 07-12-2024 End: 07-12-2024 Follow-up encounter Tiffany Joe APRN.CNP Work Phone: [facility] [place] Start: 07-11-2024 End: 07-11-2024 ambulatory TIFFANY JOE Facility:[facility] Start: 07-05-2024 End: 09-04-2024 Follow-up encounter Tiffany Joe CUSTOMER RESOLUTION SPECIALIST.[employer] Work Phone: [facility] Start: 07-04-2024 End: 07-04-2024 ambulatory TIFFANY A SUPPAN Facility:[facility] Start: 07-04-2024 End: 07-04-2024 Office outpatient visit 25 minutes Tiffany A Suppan CUSTOMER RESOLUTION SPECIALIST.[employer] Work Phone: [facility] Comment on above: Type 2 diabetes koko itus without complication, without long- term current use of insulin (HCC) (Primary Dx); Essential hypertension; Bipolar I disorder (HCC); Schizophreniform disorder, chronic condition (HCC); Constitutional obesity; Hyperlipidemia, mixed Start: 01-05-2024 End: 01-05-2024 Telephone encounter Tiffany Joe APRN.DARIO Work Phone: [facility] Comment on above: Results Start: 01-04-2024 End: 01-04-2024 ambulatory TIFFANY A SUPPAN Facility:[facility] Start: 01-04-2024 End: 01-04-2024 Office outpatient visit 25 minutes Tiffany A Suppan CUSTOMER RESOLUTION SPECIALIST.[facility] Work Phone: [facility] Comment on above: Vitamin D deficiency (Primary Dx); Essential hypertension; Type 2 diabetes mellitus without complication, without long-term current use of insulin (HCC); Acute recurrent maxillary sinusitis; Primary hypertension; Hyperlipidemia, mixed; Constitutional obesity; Schizophreniform disorder, chronic condition (HCC); Encounter for immunization; Screening for depression; Encounter for screening examination for other mental health and behavioral disorders Start: 09-02-2023 ambulatory Jackeline adhikari PA-C Work Phone: Internal [facility] Start: 06-29-2023 End: 06-29-2023 Patient encounter procedure Jackeline Blue PA-C [facility] Phone[facility] Comment on above: Encounter for immuni zation (Primary Dx); Vitamin D deficiency; Bipolar I disorder (HCC); Constitutional obesity; Primary hypertension; Schizophreniform disorder, chronic condition (HCC); Type 2 diabetes mellitus without complication, without long-term current use of insulin (HCC); Occasional tremors Start: 06-22-2023 Refill Jackeline Villagran on [employer] Work Phone: [address] [place] [address] Comment on above: Refill Request Start: 12-23-2022 End: 12-23-2022 Patient encounter procedure Eugenia Perez [employer] Work Phone: General Surgery Comment on above: Tubular adenoma ([facility] dilip Dx); Melanosis coli; Hemorrhoids, unspecified hemorrhoid type; History of colonic polyps; Tortuous colon Start: 11-11-2022 End: 11-11-2022 Patient encounter procedure Jackeline Blue [employer] Work Phone: [facility] [place] Comment on above: Primary hypertension (Primary Dx); Type 2 diabetes mellitus without complication, without long-term current use of insulin (HCC); Constitutional obesity; Anemia, unspecified type; Schizophreniform disorder, chronic condition (HCC); Bipolar I disorder (HCC); Essential hypertension; Hyperlipidemia, mixed; Serrated polyp of colon; Extrapyramidal symptom; Vitamin D deficiency Start: 09-24-2022 ambulatory Jackeline Villagran on [employer] Work Phone: Internal Medicine [facility] Start: 07-29-2022 End: 07-29-2022 Patient encounter procedure Eugenia [employer] Work Phone: [facility] Comment on above: History of colonic p olyps (Primary Dx); Serrated polyp of colon; Encounter for screening for malignant neoplasm of colon Start: 06-26-2022 Refill Jackeline Villagran on [employer] Work Phone: [facility] [place] Comment on above: Refill Request Start: 05-12-2022 End: 05-12-2022 Patient encounter procedure Jackeline Blue [employer] Work Phone: [facility] [place] Comment on above: Essential hypertensi on (Primary Dx); Hyperlipidemia, mixed; Type 2 diabetes mellitus without complication, without long-term current use of insulin (HCC); Vitamin D deficiency; Serrated polyp of colon Start: 12-16-2021 Telephone encounter Venessa gaona APRN.CNP Work Phone: [facility] [place] Comment on above: Results Start: 11-11-2021 End: 11-11-2021 Patient encounter procedure M Pipo Blue PA-C Work Phone: [facility] [place] Comment on above: Essential hypertensi on (Primary Dx); Hyperlipidemia, mixed; Type 2 diabetes mellitus without complication, without long-term current use of insulin (HCC); Constitutional obesity; Schizophreniform disorder, chronic condition (HCC); Bipolar I disorder (HCC); Extrapyramidal symptom; Low vitamin D level Start: 10-16-2021 ambulatory Anand Colbert MD Work Phone: Internal [facility] [place] Start: 09-23-2017 Ambulatory [facility] Start: 05-09-2014 End: 05-09-2014 Emergency department patient visit No [facility] Facility:[facility] Procedures Date Procedure Procedure Detail Performing Clinician Start: 01-04-2024 Adult depression scr eening assessment Tiffany Joe APRN.CNP Work Phone: Start: 12-15-2022 Colonoscopy Eugenia alaniz PA-C Work Phone: Start: 11-11-2021 Adult depression scr eening assessment KEVIN Blue PA-C Work Phone: Start: 11-13-2020 Adult depression scr eening assessment Anand Colbert MD Work Phone: Start: 12-13-2019 Colonoscopy Anand Gorman MD Work Phone: Start: 05-09-2014 Mammography Anand Gorman MD Work Phone: Plan of Treatment Date Care Activity Detail Author Start: 2039 RSV Vaccine (1 - 1-d ose 75+ series) RSV Vaccine (1 - 1-dose 75+ series) [facility] Start: 06-28-2033 Urine microalbumin profile DTaP,Tdap,Td Vaccine (3 - Td or Tdap) [facility] Start: 12-15-2025 Colonoscopy COLONOSCOPY [facility] Start: 12-15-2025 COLORECTAL CANCER SCREENING COLORECTAL CANCER SCREENING [facility] Start: 12-15-2025 Screening for malign ant neoplasm of colon [facility] Start: 09-26-2025 Annual PCP Team Alarm Signal Operator julissa Disease Visit Annual PCP Team Chronic Disease Visit [facility] Start: 09-06-2025 Annual PCP Team Alarm Signal Operator julissa Disease Visit Annual PCP Team Chronic Disease Visit [facility] Start: 09-05-2025 Glaucoma screening Dilated Retinal E xam [facility] Start: 07-04-2025 Annual PCP Team Alarm Signal Operator julissa Disease Visit Annual PCP Team Chronic Disease Visit [facility] Start: 07-04-2025 Covid-19 Vaccine () Covid-19 Vaccine () [facility] Comment on above: Postponed from 12/26 (Declined at this time) Start: 07-04-2025 Diabetic foot examination Diabetic Foot Exam [facility] Start: 07-04-2025 Hepatitis B surface antibody level LDL Cholesterol [facility] Start: 07-04-2025 Screening for malign ant neoplasm of breast Mammogram Screening [facility] Comment on above: Postponed from 05/09 (Declined at this time) Start: 03-20-2025 End: 03-20-2025 Patient encounter procedure 03/20/2025 9:00 AM EST Office Visit [facility] [place] [address] [place] [address] Anand Colbert MD [address] [place], [place] [id number] Medicare Wellness [facility] [place] Comment on above: Medicare Wellness Start: 03-09-2025 End: 06-08-2025 Comprehensive metabolic 2000 panel - Serum or Plasma COMPREHENSIVE METABOLIC PANEL Lab Routine Essential hypertension Fatty liver Type 2 diabetes mellitus without complication, without long-term current use of insulin (HCC) Expected: 03/09/2025, Expires: 06/08/2025 [facility] Comment on above: Expected: 03/09/2025 , Expires: 06/08/2025 Start: 03-09-2025 End: 06-08-2025 Hemoglobin A1c in Blood HEMOGLOBIN A1C Lab Routine Type 2 diabetes mellitus without complication, without long-term current use of insulin (HCC) Expected: 03/09/2025, Expires: 06/08/2025 [facility] Work Phone: Comment on above: Expected: 03/09/2025 , Expires: 06/08/2025 Start: 01-04-2025 Hemoglobin A1c measurement HbA1C [facility] Start: 01-03-2025 Anxiety Screening Anxiety Screening [facility] Start: 01-03-2025 Depression Screening Depression Scre ening [facility] Start: 01-03-2025 Hepatitis B screening Urine Albumin:Creatinine Ratio [facility] Start: 01-03-2025 Hepatitis B surface antibody level LDL Cholesterol [facility] Start: 12-26-2024 Influenza vaccination Influenz a Vaccine (Season Ended) [facility] Start: 10-24-2024 Influenza vaccination Influenza Vacc ine (#1) [facility] Comment on above: Postponed from 12/26 (Declined at this time) Start: 09-06-2024 End: 09-06-2024 Patient encounter procedure 09/06/2024 3:40 PM EDT Office Visit Family [facility] [address] [place] [address] Anand Colbert MD [address] [place], [place] [address] 1 month HTN f/u [facility] Comment on above: 1 month HTN f/u Start: 09-06-2024 Glaucoma screening Dilated Retinal E xam [facility] Start: 08-08-2024 End: 08-08-2024 Patient encounter procedure 08/08/2024 10:00 AM EDT Office Visit [facility] [place] [address] [place] [address] Tiffany Joe, CUSTOMER RESOLUTION SPECIALIST.[employer]TER [address] [place] [address] 1 month HTN f/u [facility] Comment on above: 1 month HTN f/u Start: 07-04-2024 End: 10-03-2024 Comprehensive metabolic 2000 panel - Serum or Plasma [facility] Comment on above: Expected: 07/04/2024 , Expires: 10/03/2024 Start: 07-04-2024 End: 10-03-2024 Hemoglobin A1c in Blood [facility] Work Phone: Comment on above: Expected: 07/04/2024 , Expires: 10/03/2024 Start: 07-04-2024 End: 10-03-2024 LIPID PANEL, NONFASTING [facility] Comment on above: Expected: 07/04/2024 , Expires: 10/03/2024 Start: 07-04-2024 End: 07-04-2024 Patient encounter procedure 07/04/2024 8:00 AM EDT [facility] [place] [address] [facility] [place] [id number] Tiffany Joe APRN.REMNANTS CUTTER [address] [place], [place] [address] 6 mo follow up [facility] [place] Comment on above: 6 mo follow up Start: 07-03-2024 Hemoglobin A1c measurement HbA1C [facility] Start: 06-28-2024 Annual PCP Team Alarm Signal Operator julissa Disease Visit Annual PCP Team Chronic Disease Visit [facility] Start: 06-28-2024 Covid-19 Vaccine (#1) Covid-19 Vacci ne (#1) [facility] Comment on above: Postponed from 09/29 (Declined at this time) Start: 06-28-2024 Covid-19 Vaccine () Covid-19 Vaccine () [facility] Comment on above: Postponed from 12/26 (Declined at this time) Start: 06-28-2024 Hepatitis B surface antibody level LDL Cholesterol [facility] Start: 01-04-2024 End: 04-04-2024 25-hydroxyvitamin D3 [Mass/volume] in Serum or Plasma [facility] Work Phone: Comment on above: Expected: 01/04/2024 , Expires: 04/04/2024 Start: 01-04-2024 End: 04-04-2024 Cobalamin (Vitamin B12) [Mass/volume] in Serum or Plasma [facility] Comment on above: Expected: 01/04/2024 , Expires: 04/04/2024 Start: 01-04-2024 End: 04-04-2024 Hemoglobin A1c in Blood [facility] Comment on above: Expected: 01/04/2024 , Expires: 04/04/2024 Start: 01-04-2024 End: 04-04-2024 Microalbumin/Creatinine [Mass Ratio] in Urine [facility] Comment on above: Expected: 01/04/2024 , Expires: 04/04/2024 Start: 01-04-2024 End: 01-04-2024 Patient encounter procedure 01/04/2024 8:40 AM EDT Office Visit [facility] [place] [address] [place] [address] Jackeline Blue PA-C [address] [place] [address] 7 mo follow up [facility] [place] Comment on above: 7 mo follow up Start: 12-30-2023 Hemoglobin A1c measurement HbA1C [facility] Start: 12-27-2023 Covid-19 Vaccine ( season) Covid-19 Vaccine () [facility] Start: 12-27-2023 Influenza vaccination Influenz a Vaccine (Season Ended) [facility] Start: 11-12-2023 ANNUAL PCP TEAM SIGNAL AND COMMUNICATIONS MAINTAINER JULISSA DISEASE VISIT ANNUAL PCP TEAM CHRONIC DISEASE VISIT [facility] Start: 11-12-2023 Hepatitis B screening URINE ALBUMIN:CREATININE RATIO [facility] Start: 11-12-2023 Hepatitis B surface antibody level LDL CHOLESTEROL [facility] Start: 10-25-2023 Influenza vaccination Influenza Vacc ine (#1) [facility] Comment on above: Postponed from 12/26 (Declined at this time) Start: 09-03-2023 Glaucoma screening Dilated Retinal E xam [facility] Start: 09-03-2023 Hepatitis C antibody , confirmatory test DILATED RETINAL EXAM [facility] Start: 06-29-2023 End: 09-28-2023 25-hydroxyvitamin D3 [Mass/volume] in Serum or Plasma [facility] Work Phone: Comment on above: Expected: 06/29/2023 , Expires: 09/28/2023 Start: 05-14-2023 Hemoglobin A1c measurement HbA1C [facility] Start: 05-14-2023 Hemoglobin A1c/Hemoglobin.total in Blood HBA1C [facility] Start: 05-12-2023 3 comp foot exam completed DIABETIC FOOT EXAM [facility] Start: 05-12-2023 ANNUAL PCP TEAM SIGNAL AND COMMUNICATIONS MAINTAINER JULISSA DISEASE VISIT ANNUAL PCP TEAM CHRONIC DISEASE VISIT [facility] Start: 05-12-2023 COVID-19 VACCINE (#1) COVID-19 VACCI NE (#1) [facility] Comment on above: Postponed from 09/29 (Declined at this time) Start: 05-12-2023 Diabetic foot examination Diabetic Foot Exam [facility] Start: 05-12-2023 HEPATITIS B (1 of 3 - 3-dose series) HEPATITIS B (1 of 3 - 3-dose series) [facility] Comment on above: Postponed from 03/31 (Declined at this time) Start: 05-12-2023 Hepatitis B surface antibody level LDL CHOLESTEROL [facility] Start: 05-12-2023 PNEUMOCOCCAL (1 - PCV) PNEUMOCOCCAL (1 - PCV) [facility] Comment on above: Postponed from 03/31 (Declined at this time) Start: 04-27-2023 Behavioral Health Screening Behavioral Health Screening [facility] Start: 04-27-2023 Depression Assessment Depression Ass essment [facility] Start: 12-26-2022 Influenza vaccination C [facility] Start: 12-12-2022 Colonoscopy COLONOSCOPY [facility] Start: 12-12-2022 COLORECTAL CANCER SCREENING COLORECTAL CANCER SCREENING [facility] Start: 11-24-2022 Urine microalbumin profile [facility] Start: 11-11-2022 End: 01-11-2023 25-hydroxyvitamin D3 [Mass/volume] in Serum or Plasma [facility] Work Phone: Comment on above: Expected: 11/11/2022 , Expires: 01/11/2023 Start: 11-11-2022 Adult depression screening assessment DEPRESSION SCREENING [facility] Start: 11-11-2022 End: 01-11-2023 ALBUMIN/CREAT RATIO RND UR [facility] Work Phone: Comment on above: Expected: 11/11/2022 , Expires: 01/11/2023 Start: 11-11-2022 ANNUAL PCP TEAM SIGNAL AND COMMUNICATIONS MAINTAINER JULISSA DISEASE VISIT ANNUAL PCP TEAM CHRONIC DISEASE VISIT [facility] Start: 11-11-2022 BP CONTROLLED (<130/80) BP CONTROLLE D (<130/80) [facility] Start: 11-11-2022 End: 01-11-2023 Comprehensive metabolic 2000 panel - Serum or Plasma [facility] Work Phone: Comment on above: Expected: 11/11/2022 , Expires: 01/11/2023 Start: 11-11-2022 End: 01-11-2023 Hemoglobin A1c in Blood [facility] Work Phone: Comment on above: Expected: 11/11/2022 , Expires: 01/11/2023 Start: 11-11-2022 Hepatitis B screening URINE ALBUMIN:CREATININE RATIO [facility] Start: 11-11-2022 Hepatitis B surface antibody level LDL CHOLESTEROL [facility] Start: 11-11-2022 End: 01-11-2023 Lipid 1996 panel - Serum or Plasma [facility] Work Phone: Comment on above: Expected: 11/11/2022 , Expires: 01/11/2023 Start: 11-09-2022 Hemoglobin A1c/Hemoglobin.total in Blood HBA1C [facility] Start: 10-24-2022 Influenza vaccination INFLUENZA (#1) [facility] Comment on above: Postponed from 12/26 (Declined at this time) Start: 09-02-2022 Hepatitis C antibody , confirmatory test DILATED RETINAL EXAM [facility] Start: 05-14-2022 Hemoglobin A1c/Hemoglobin.total in Blood HBA1C [facility] Start: 05-12-2022 End: 07-12-2022 25-hydroxyvitamin D3 [Mass/volume] in Serum or Plasma [facility] Work Phone: Comment on above: Expected: 05/12/2022 , Expires: 07/12/2022 Start: 05-12-2022 End: 07-12-2022 Comprehensive metabolic 2000 panel - Serum or Plasma [facility] Work Phone: Comment on above: Expected: 05/12/2022 , Expires: 07/12/2022 Start: 05-12-2022 End: 07-12-2022 Hemoglobin A1c in Blood [facility] Work Phone: Comment on above: Expected: 05/12/2022 , Expires: 07/12/2022 Start: 05-12-2022 End: 07-12-2022 Lipid 1996 panel - Serum or Plasma [facility] Work Phone: Comment on above: Expected: 05/12/2022 , Expires: 07/12/2022 Start: 12-26-2021 Influenza vaccination [facility] Start: 11-13-2021 3 comp foot exam completed DIABETIC FOOT EXAM [facility] Start: 11-13-2021 Adult depression screening assessment DEPRESSION SCREENING [facility] Start: 11-13-2021 ANNUAL PCP TEAM SIGNAL AND COMMUNICATIONS MAINTAINER JULISSA DISEASE VISIT ANNUAL PCP TEAM CHRONIC DISEASE VISIT [facility] Start: 11-13-2021 COVID-19 VACCINE (#1) COVID-19 VACCI NE (#1) [facility] Comment on above: Postponed from 03/31 (Declined at this time) Postponed from 09/29 (Declined at this time) Start: 11-13-2021 Hepatitis B screening URINE ALBUMIN:CREATININE RATIO [facility] Start: 11-13-2021 Hepatitis B surface antibody level LDL CHOLESTEROL [facility] Start: 11-11-2021 End: 01-11-2022 25-hydroxyvitamin D3 [Mass/volume] in Serum or Plasma [facility] Work Phone: Comment on above: Expected: 11/11/2021 , Expires: 01/11/2022 Start: 11-11-2021 End: 01-11-2022 ALBUMIN/CREAT RATIO RND UR [facility] Work Phone: Comment on above: Expected: 11/11/2021 , Expires: 01/11/2022 Start: 11-11-2021 End: 01-11-2022 CBC W Auto Differential panel - Blood [facility] Work Phone: Comment on above: Expected: 11/11/2021 , Expires: 01/11/2022 Start: 11-11-2021 End: 01-11-2022 Comprehensive metabolic 2000 panel - Serum or Plasma [facility] Work Phone: Comment on above: Expected: 11/11/2021 , Expires: 01/11/2022 Start: 11-11-2021 End: 01-11-2022 Hemoglobin A1c in Blood [facility] Work Phone: Comment on above: Expected: 11/11/2021 , Expires: 01/11/2022 Start: 11-11-2021 End: 01-11-2022 Lipid 1996 panel - Serum or Plasma [facility] Work Phone: Comment on above: Expected: 11/11/2021 , Expires: 01/11/2022 Start: 08-19-2021 Hemoglobin A1c/Hemoglobin.total in Blood HBA1C [facility] Start: 05-09-2015 Mammography MAMMOGRAM [facility] Start: 05-09-2015 Screening for malign ant neoplasm of breast Mammogram Screening [facility] Start: 2009 COLOGUARD (FIT-DNA) COLOGUARD (FIT-D NA) [facility] Start: [address] COLONOGRAPHY [facility] Start: 2009 FECAL OCCULT BLOOD FECAL OCCULT BLOO D [facility] Start: 2009 Screening for malign ant neoplasm of colon [facility] Start: 2009 SIGMOIDOSCOPY SIGMOIDOSCOPY [facility] Start: 1983 HEPATITIS B (1 of 3 - Risk 3-dose series) HEPATITIS B (1 of 3 - Risk 3-dose series) [facility] Start: 1982 BP CONTROLLED (<130/80) BP CONTROLLE D (<130/80) [facility] Start: 1970 PNEUMOCOCCAL (1 - PCV) PNEUMOCOCCAL (1 - PCV) [facility] Start: 1970 Pneumococcal vaccination Pneum ococcal Vaccine (1 of 2 - PCV) [facility] Start: 1964 COVID-19 VACCINE (#1) COVID-19 VACCI NE (#1) [facility] Start: 1964 HEPATITIS B (1 of 3 - 3-dose series) HEPATITIS B (1 of 3 - 3-dose series) [facility] End: 10-24-2023 JUVENTINO SCREENING JUVENTINO SCREENING Radiology Routine Encounter for screening mammogram for breast cancer 1 Occurrences starting 09/24/2022 until 10/24/2023 [facility] Work Phone: Comment on above: 1 Occurrences starti ng 09/24/2022 until 10/24/2023 End: 10-01-2024 MG Breast Screening JUVENTINO SCREENING Radiology Routine Encounter for screening mammogram for breast cancer 1 Occurrences starting 09/02/2023 until 10/01/2024 [facility] Work Phone: Comment on above: 1 Occurrences starti ng 09/02/2023 until 10/01/2024 End: 11-15-2022 Screening mammography bi 2-view breast inc cad JUVENTINO SCREENING Radiology Routine Encounter for screening mammogram for breast cancer 1 Occurrences starting 10/16/2021 until 11/15/2022 [facility] Work Phone: Comment on above: 1 Occurrences starti ng 10/16/2021 until 11/15/2022 [facility] Immunizations Immunization Date Immunization Notes Care Provider Martinez craft 01-04-2024 pneumococcal conjuga te (PCV20) vaccine, 20 valent (PREVNAR 20) Tiffany Suppan CUSTOMER RESOLUTION SPECIALIST.[employer] Work Phone: [facility] 01-04-2024 pneumococcal Conjugate, unspecified formulation Tiffany Suppan CUSTOMER RESOLUTION SPECIALIST.[employer] Work Phone: [facility] 06-29-2023 tetanus toxoid, reduced diphtheria toxoid, and acellular pertussis vaccine, adsorbed Tiffany Suppan CUSTOMER RESOLUTION SPECIALIST.[employer] Work Phone: [facility] 05-15-2020 zoster vaccine recombinant Anand Colbert MD Work Phone: [facility] 02-01-2020 influenza, injectabl e, quadrivalent, contains preservative Anand Colbert MD Work Phone: [facility] Work Phone: 02-01-2020 zoster vaccine recombinant Anand Colbert MD Work Phone: [facility] Work Phone: 02-01-2020 influenza virus vaccine, unspecified formulation KEVIN Blue PA-C Work Phone: [facility] 02-07-2019 influenza, injectabl e, quadrivalent, contains preservative Anand Colbert MD Work Phone: [facility] Work Phone: 05-09-2014 influenza, seasonal, injectable Anand Colbert MD Work Phone: [facility] 11-24-2012 tetanus toxoid, reduced diphtheria toxoid, and acellular pertussis vaccine, adsorbed Anand Colbert MD Work Phone: [facility] Payers Date Payer Category Payer Medicare [id number] 2023 Medicare [id number] 2019 Medicaid [facility] MEDICAID [facility] [employer] MEDICAID [id number] 2019-Present [phone] [address] [place] [address] Medicaid [id number] 2019 Medicaid [id number] 2019 Medicaid [id number] Unknown [id number] Social History Date Type Detail Facility Start: 11-08-2019 End: 01-04-2024 Tobacco smoking status NHIS Ex-smoker [facility] Work Phone: History of tobacco use Cigarette Smoker [facility] Work Phone: Start: 11-08-2019 End: 12-23-2022 Cigarettes smoked current (pack per day) - Reported 0.1 [facility] Start: 11-08-2019 End: 01-04-2024 Tobacco use and exposure User of smokeless tobacco [facility] Work Phone: History of tobacco use Snuff User [facility] Work Phone: Start: 11-13-2020 End: 09-26-2024 Alcohol intake Current non-drinker of alcohol (finding) [facility] Start: 11-04-2019 End: 12-13-2019 History SDOH Alcohol Frequency 1 [facility] Start: 12-13-2019 History SDOH Alcohol Std Drinks 98 [facility] Start: 04-08-2011 History SDOH Alcohol Comment 3/year [facility] Start: 11-04-2019 History SDOH Social Connections Phone 5 [facility] Start: 11-04-2019 History SDOH Social Connections Get Together 2 [facility] Start: 11-04-2019 History SDOH Social Connections Living 3 [facility] Start: 11-04-2019 History SDOH Physica l Activity DPW 0 [facility] Start: 11-04-2019 Education 8 [facility] Start: 1965 Sex Assigned At Not on file [facility] Start: 10-04-2021 End: 11-18-2021 Exposure to SARS-CoV-2 (event) Not sure [facility] History of tobacco use Current smoker [facility] Work Phone: Start: 05-12-2022 Tobacco Comment one cigarette daily 35 years ago,no longer smoking now [facility] Start: 11-04-2019 End: 12-23-2022 Social connection and isolation panel [facility] Do you belong to any clubs or organizations such as zoroastrian groups, unions, [employer] or athletic groups, or school groups? No [facility] Are you now , , , , never or living with a partner? [facility] How often to you hav e a drink containing alcohol? Never [facility] How many standard dr inks containing alcohol do you have on a typical day? Patient refused [facility] How hard is it for y ou to pay for the very basics like food, housing, medical care, and heating Hard [facility] Do you feel stress - tense, restless, nervous, or anxious, or unable to sleep at night because your mind is troubled all the time - these days [OSQ] Not at all [facility] (I/We) worried whejo er (my/our) food would run out before (I/we) got money to buy more. Sometimes true [facility] The food that (I/we) bought just didn't last, and (I/we) didn't have money to get more. Never true [facility] In the past 12 month s, was there a time when you were not able to pay the mortgage or rent on time? Yes [facility] Medical Equipment Procedure Code Equipment Code Equipment Original Text Equipment Identifier Dates [id number], [id number], [id number] Start: 07-27-2020 End: 01-04-2024 Comment on above: Test blood sugar(s1) 1 times daily. Dx: Type 2 DM - Controlled E11.9 Insulin: Yes Test blood sugar(s) 1 times daily. Dx: Type 2 DM - Controlled E11.9 Insulin: Yes Functional Status Date Assessment Result Facility 08-01-2014 Are you deaf, or do you have serious difficulty hearing No 08/01/2014 3:26 PM EDT Gunjan Hayes RN No [facility] 08-01-2014 Are you blind, or do you have serious difficulty seeing, even when wearing glasses No 08/01/2014 3:26 PM EDT Gunjan Hayes RN No [facility] 08-01-2014 Do you have serious difficulty walking or climbing stairs No 08/01/2014 3:26 PM EDT Gunjan Hayes RN No [facility] 08-01-2014 Do you have difficul ty dressing or bathing No 08/01/2014 3:26 PM EDT Gunjan Hayes RN No [facility] 08-01-2014 Because of a physica l, mental, or emotional condition, do you have difficulty doing errands alone such as visiting a physician's office or shopping No 08/01/2014 3:26 PM EDT Gunjan Hayes RN No [facility] Mental Status Date Assessment Result Facility 08-01-2014 Because of a physica l, mental, or emotional condition, do you have serious difficulty concentrating, remembering, or making decisions No 08/01/2014 3:26 PM EDT Gunjan Hayes RN No [facility] Clinical Notes 05-15-2011 to 09-26-2024 Anand Colbert MD - 09/26/2024 3:56 PM EDTPatient InstructionsTelephone Encounter - Moraima Goodman LPN - 09/21/2024 4:52 PM EDTTelephone Encounter - Moraima Goodman LPN - 09/21/2024 4:52 PM EDT Note Date & Type Note Facility 09-26-2024 Note HNO ID: [id number] Author: ANAND COLBERT MD Service: ? Author Type: Physician Type: Progress Notes Filed: 09/26/2024 15:57 Note Text: Sara is a 59-year-old female with a history of HTN, presenting for evaluation of edema. HPI Edema: - Onset last week after consuming popcorn with high salt content. - Significant swelling in ankles; mild swelling in hands. - Edema improved gradually over several days; currently resolved. - Denies chest pain, orthopnea, dizziness, or lightheadedness. - Mild dyspnea on exertion when climbing stairs, attributed to weight. - No history of edema with salt intake. - Denies cough, wheezing, or abdominal discomfort. Hypertension: - Well-controlled on amlodipine. MEDICATIONS: Current Outpatient Medications Medication Sig amLODIPine (NORVASC) 5 mg tablet Take 1 tablet by mouth once daily. escitalopram oxalate (LEXAPRO) 5 mg tablet Take 1 tablet by mouth every afternoon. Cholecalciferol, Vitamin D3, 25 mcg (1,000 unit) cap 1 caps daily during the summer, 2 caps daily during winter Patient should start on March 25, 2024. metFORMIN (GLUCOPHAGE) 500 mg tablet Take 1 tablet by mouth two times a day with meals. . Patient should start on March 25, 2024. potassium chloride (K-TAB) 10 mEq tablet Take 1 tablet by mouth two times a day. Patient should start on March 25, 2024. atorvastatin (LIPITOR) 20 mg tablet Take 1 tablet by mouth daily at bedtime. For cholesterol. blood sugar diagnostic (BLOOD GLUCOSE TEST) test strip Test blood sugar(s1) 1 times daily. Dx: Type 2 DM - Controlled E11.9 Insulin: Yes hydroCHLOROthiazide 25 mg tablet Take 1 tablet by mouth once daily. losartan (COZAAR) 100 mg tablet Take 1 tablet by mouth once daily. Patient should start on March 25, 2024. benztropine (COGENTIN) 1 mg tablet Take 1 mg by mouth twice daily as needed. OLANZapine (ZYPREXA) 15 mg tablet Take 15 mg by mouth daily at bedtime. Lancets lancets Test blood sugar(s) 1 times daily. Dx: Type 2 DM - Controlled E11.9 Insulin: Yes No current facility-administered medications for this visit. ALLERGIES: ALLERGIES No Known Allergies PAST MEDICAL HISTORY Diagnosis Date Bipolar I disorder, most recent episode (or current) unspecified DM (diabetes mellitus) (HCC) Dysmenorrhea Excessive or frequent menstruation Heavy periods HTN (hypertension) Hypercholesterolemia Irregular menstrual cycle Irregular periods Schizophreniform disorder, chronic condition (HCC) PAST SURGICAL HISTORY Procedure Laterality Date ANTERIOR COLPORRAPHY RPR CYSTOCELE W/CYSTO 05/22/2011 anterior repair APPENDECTOMY 13y/o Was readmitted twice with infection after APPENDECTOMY COLONOSCOPY FLX DX W/COLLJ SPEC WHEN PFRMD 06/26/2016 Colonoscopy COLONOSCOPY FLX DX W/COLLJ SPEC WHEN PFRMD 09/28/2017 Colonoscopy COLONOSCOPY FLX DX W/COLLJ SPEC WHEN PFRMD 12/13/2019 Colonoscopy COLONOSCOPY FLX DX W/COLLJ SPEC WHEN PFRMD 12/13/2019 Colonoscopy COLONOSCOPY FLX DX W/COLLJ SPEC WHEN PFRMD 12/15/2022 repeat 3 years DILATION AND CURETTAGE DXAND/THER NONOBSTETRIC Dilation AND curettage LAPAROSCOPY TOT HYSTERECTOMY >250 G W/TUBE/OVAR 05/22/2011 LAVH, bilateral salpingectomy VAGINAL HYSTERECTOMY FAMILY HISTORY Problem Relation Age of Onset Prostate Cancer Father Genetic Maternal Grandmother Cancer Maternal Grandmother lymphoma Diabetes Maternal Aunt Diabetes Maternal Aunt Social History Tobacco Use Smoking status: Former Current packs/day: 0.10 Average packs/day: 0.1 packs/day for 2.0 years (0.2 ttl pk-yrs) Types: Cigarettes Smokeless tobacco: Current Types: Snuff Tobacco comments: one cigarette daily 35 years ago,no longer smoking now Vaping Use Vaping status: Never Used Substance Use Topics Alcohol use: No Comment: 3/year Drug use: No Reviewed current medications, allergies, past medical history, surgical history, family history and social history today. REVIEW OF SYSTEMS Cardiovascular: (-) chest pain, (-) orthopnea Respiratory: (+) exertional dyspnea Gastrointestinal: (-) abdominal pain Musculoskeletal: (-) peripheral edema Neurological: (-) dizziness, (-) lightheadedness HEALTH MAINTENANCE: Reviewed health maintenance issues today and recommended the following in detail. BP Controlled (<130/80) Never done LAB REVIEWED: VITALS: BP 124/82 Pulse 88 Wt 101.6 kg (224 lb) LMP 04/30/2010 SpO2 91% BMI 39.68 kg/m? Last 4 Encounter Wt Readings: Date: Wt: 09/26/2024 101.6 kg (224 lb) 09/06/2024 102.1 kg (225 lb) 07/04/2024 101.2 kg (223 lb) 01/04/2024 84.4 kg (186 lb) PHYSICAL EXAMINATION: GENERAL: NAD, alert and oriented SKIN: Unremarkable, no rash or skin lesions. LUNGS: Clear to auscultation bilaterally, no wheezes/rhonchi/rales. HEART: Regular rate and rhythm, no murmurs. No ectopy. EXTREMITIES: No deformities, no skin discoloration, no edema. No erythema or warmth in legs, calves n (more content not included)... [facility] 09-26-2024 History of Present illness Narrative Sara is a 59-year-old female with a history of HTN, presenting for evaluation of edema. HPI Edema: - Onset last week after consuming popcorn with high salt content. - Significant swelling in ankles; mild swelling in hands. - Edema improved gradually over several days; currently resolved. - Denies chest pain, orthopnea, dizziness, or lightheadedness. - Mild dyspnea on exertion when climbing stairs, attributed to weight. - No history of edema with salt intake. - Denies cough, wheezing, or abdominal discomfort. Hypertension: - Well-controlled on amlodipine. MEDICATIONS: Current Outpatient Medications Medication Sig amLODIPine (NORVASC) 5 mg tablet Take 1 tablet by mouth once daily. escitalopram oxalate (LEXAPRO) 5 mg tablet Take 1 tablet by mouth every afternoon. Cholecalciferol, Vitamin D3, 25 mcg (1,000 unit) cap 1 caps daily during the summer, 2 caps daily during winter Patient should start on March 25, 2024. metFORMIN (GLUCOPHAGE) 500 mg tablet Take 1 tablet by mouth two times a day with meals. . Patient should start on March 25, 2024. potassium chloride (K-TAB) 10 mEq tablet Take 1 tablet by mouth two times a day. Patient should start on March 25, 2024. atorvastatin (LIPITOR) 20 mg tablet Take 1 tablet by mouth daily at bedtime. For cholesterol. blood sugar diagnostic (BLOOD GLUCOSE TEST) test strip Test blood sugar(s1) 1 times daily. Dx: Type 2 DM - Controlled E11.9 Insulin: Yes hydroCHLOROthiazide 25 mg tablet Take 1 tablet by mouth once daily. losartan (COZAAR) 100 mg tablet Take 1 tablet by mouth once daily. Patient should start on March 25, 2024. benztropine (COGENTIN) 1 mg tablet Take 1 mg by mouth twice daily as needed. OLANZapine (ZYPREXA) 15 mg tablet Take 15 mg by mouth daily at bedtime. Lancets lancets Test blood sugar(s) 1 times daily. Dx: Type 2 DM - Controlled E11.9 Insulin: Yes No current facility-administered medications for this visit. ALLERGIES: ALLERGIES No Known Allergies PAST MEDICAL HISTORY Diagnosis Date Bipolar I disorder, most recent episode (or current) unspecified DM (diabetes mellitus) (HCC) Dysmenorrhea Excessive or frequent menstruation Heavy periods HTN (hypertension) Hypercholesterolemia Irregular menstrual cycle Irregular periods Schizophreniform disorder, chronic condition (HCC) PAST SURGICAL HISTORY Procedure Laterality Date ANTERIOR COLPORRAPHY RPR CYSTOCELE W/CYSTO 05/22/2011 anterior repair APPENDECTOMY 13y/o Was readmitted twice with infection after APPENDECTOMY COLONOSCOPY FLX DX W/COLLJ SPEC WHEN PFRMD 06/26/2016 Colonoscopy COLONOSCOPY FLX DX W/COLLJ SPEC WHEN PFRMD 09/28/2017 Colonoscopy COLONOSCOPY FLX DX W/COLLJ SPEC WHEN PFRMD 12/13/2019 Colonoscopy COLONOSCOPY FLX DX W/COLLJ SPEC WHEN PFRMD 12/13/2019 Colonoscopy COLONOSCOPY FLX DX W/COLLJ SPEC WHEN PFRMD 12/15/2022 repeat 3 years DILATION & CURETTAGE DX&/THER NONOBSTETRIC Dilation & curettage LAPAROSCOPY TOT HYSTERECTOMY >250 G W/TUBE/OVAR 05/22/2011 LAVH, bilateral salpingectomy VAGINAL HYSTERECTOMY FAMILY HISTORY Problem Relation Age of Onset Prostate Cancer Father Genetic Maternal Grandmother Cancer Maternal Grandmother lymphoma Diabetes Maternal Aunt Diabetes Maternal Aunt Social History Tobacco Use Smoking status: Former Current packs/day: 0.10 Average packs/day: 0.1 packs/day for 2.0 years (0.2 ttl pk-yrs) Types: Cigarettes Smokeless tobacco: Current Types: Snuff Tobacco comments: one cigarette daily 35 years ago,no longer smoking now Vaping Use Vaping status: Never Used Substance Use Topics Alcohol use: No Comment: 3/year Drug use: No Reviewed current medications, allergies, past medical history, surgical history, family history and social history today. REVIEW OF SYSTEMS Cardiovascular: (-) chest pain, (-) orthopnea Respiratory: (+) exertional dyspnea Gastrointestinal: (-) abdominal pain Musculoskeletal: (-) peripheral edema Neurological: (-) dizziness, (-) lightheadedness HEALTH MAINTENANCE: Reviewed health maintenance issues today and recommended the following in detail. BP Controlled (<130/80) Never done LAB REVIEWED: VITALS: BP 124/82 Pulse 88 Wt 101.6 kg (224 lb) LMP 04/30/2010 SpO2 91% BMI 39.68 kg/m Last 4 Encounter Wt Readings: Date: Wt: 09/26/2024 101.6 kg (224 lb) 09/06/2024 102.1 kg (225 lb) 07/04/2024 101.2 kg (223 lb) 01/04/2024 84.4 kg (186 lb) PHYSICAL EXAMINATION: GENERAL: NAD, alert and oriented SKIN: Unremarkable, no rash or skin lesions. LUNGS: Clear to auscultation bilaterally, no wheezes/rhonchi/rales. HEART: Regular rate and rhythm, no murmurs. No ectopy. EXTREMITIES: No deformities, no skin discoloration, no edema. No erythema or warmth in legs, calves non-tender. ASSESSMENT AND PLAN 1. Edema, unspecified type (R60.9) - Recent onset of edema following high salt intake; resolved spontaneously over several days. - No associated chest pain, dyspnea, or orthopnea; no dizziness or lightheadedness reported. - Physical exam reveals no significant edema in hands or feet; no redness, warmth, or tenderness in legs. - Advised to monitor and reduce salt intake; recommended leg elevation and increased water intake if edema recurs. 2. Essential hypertension (I10) - Blood pressure well-controlled at 124/82 mmHg. - Continue current antihypertensive regimen with amlodipine. - Follow-up appointment scheduled for March 20. 3. Class 2 obesity with body mass index (BMI) of 39.0 to 39.9 in adult, unspecified obesity type, unspecified whether serious comorbidity present (E66.812) - Weight stable with minor fluctuations; no significant weight gain observed. - Encouraged continuation of current weight management efforts. (See patient after visit summary for additional instructions to patient) Anand Colbert MD Recording using [employer] software for draft documentation of the visit was discussed with the patient/authorized labor representative; all questions welcomed and answered. Patient/authorized labor representative agreed to proceed documented in this encounter [facility] 09-26-2024 Instructions Anand Colbert MD - 09/26/2024 3:15 PM EDT - Continue your current blood pressure medicine (amlodipine) as prescribed. - Watch your salt intake and limit high-sodium foods. - Keep up your weight-management efforts as you ve been doing. - If you notice swelling again: - Elevate your legs when you re resting. - Drink a little extra water to help reduce fluid buildup. - Your next follow-up appointment is scheduled for March 20. - Call the office sooner if swelling returns or worsens, or if you develop chest pain, shortness of breath, leg redness, warmth, or tenderness. documented in this encounter [facility] 09-21-2024 Telephone encounter Note Phone call to patient and phone connection is bad. Asked her what vitamins she is taking? Sounds like several? Vitamin E, C, D, B1, amongst others. She is going to call back tomorrow with an update on her swelling and to possibly reschedule visit. [facility] 09-21-2024 Miscellaneous Notes Phone call to patient and phone connection is bad. Asked her what vitamins she is taking? Sounds like several? Vitamin E, C, D, B1, amongst others. She is going to call back tomorrow with an update on her swelling and to possibly reschedule visit. I would still come in. Patient called back and cancelled appointment. She stated she wanted to wait two weeks to reschedule, she stated she started taking some vitamins and she thinks that's what is causing the swelling. She stated she is going to stop taking the vitamins and call back if she needs an appointment. Patient calls for bilateral leg edema. Previously noted to ankles. Nurse triage completed. Protocol recommends see provider within 24 hours. Appt scheduled. Care advice reviewed with verbalized understanding. Reason for Disposition [1] MODERATE leg swelling (e.g., swelling extends up to knees) AND [2] new-onset or getting WORSE Answer Assessment - Initial Assessment Questions 1. ONSET: Patient reports within the last couple of days she has noticed increased swelling. 2. LOCATION: Bilateral lower ankles and legs not all the way up to the knees. 3. SEVERITY: - MODERATE Edema: Swelling of lower leg to knee, pitting edema > 1/4 inch (6 mm) deep, rest and elevation only partially reduce swelling. 4. REDNESS: No 5. PAIN: No 6. FEVER: No 7. CAUSE: Patient not certain but wants to increase HCTZ. 8. MEDICAL HISTORY: No history of blood clots (e.g., DVT), cancer, heart failure, kidney disease, or liver failure. 9. RECURRENT SYMPTOM:Patient reports continued leg swelling but worsening. Last OV note doesn't specify leg swelling. Notes bilateral ankle and hand swelling. 10. OTHER SYMPTOMS: No chest pain, difficulty breathing. Protocols used: Leg Swelling and [id number] documented in this encounter [facility] 09-21-2024 Telephone encounter Note I would still come in. [facility] 09-21-2024 Telephone encounter Note Patient called back and cancelled appointment. She stated she wanted to wait two weeks to reschedule, she stated she started taking some vitamins and she thinks that's what is causing the swelling. She stated she is going to stop taking the vitamins and call back if she needs an appointment. [facility] 09-21-2024 Telephone encounter Note Patient calls for bilateral leg edema. Previously noted to ankles. Nurse triage completed. Protocol recommends see provider within 24 hours. Appt scheduled. Care advice reviewed with verbalized understanding. Reason for Disposition [1] MODERATE leg swelling (e.g., swelling extends up to knees) AND [2] new-onset or getting WORSE Answer Assessment - Initial Assessment Questions 1. ONSET: Patient reports within the last couple of days she has noticed increased swelling. 2. LOCATION: Bilateral lower ankles and legs not all the way up to the knees. 3. SEVERITY: - MODERATE Edema: Swelling of lower leg to knee, pitting edema > 1/4 inch (6 mm) deep, rest and elevation only partially reduce swelling. 4. REDNESS: No 5. PAIN: No 6. FEVER: No 7. CAUSE: Patient not certain but wants to increase HCTZ. 8. MEDICAL HISTORY: No history of blood clots (e.g., DVT), cancer, heart failure, kidney disease, or liver failure. 9. RECURRENT SYMPTOM:Patient reports continued leg swelling but worsening. Last OV note doesn't specify leg swelling. Notes bilateral ankle and hand swelling. 10. OTHER SYMPTOMS: No chest pain, difficulty breathing. Protocols used: Leg Swelling and [id number] [facility] 09-06-2024 Note HNO ID: [id number] Author: ANAND COLBERT MD Service: ? Author Type: Physician Type: Progress Notes Filed: 09/06/2024 15:47 Note Text: Patient presents with: Hypertension HPI: Patient presents today for office visit for blood pressure follow up. Saw Pattie Joe on 07/04/24. States when MA checked her BP it was 144/80. When Pattie came in the room patient states she put the cuff on her arm but did not pump it up and was told that the recheck was still high. Amlodipine was increased to 10 mg daily at that time. She had 5 mg tabs at home and was told to take 2 tablets until increased dose arrived from pharmacy. She never received new Rx from pharmacy and did not follow up on this. Still currently only taking 5 mg one tab daily because she didn't want to run out. Denies chest pain. Shortness of breath with exertion. Denies headaches and dizziness. Denies palpitations and syncope. Some edema to right ankle and in B/L hands. Latest Ref Rng 07/04/2024 07/11/2024 Protein, Total 6.3 - 8.0 g/dL 7.7 Albumin 3.9 - 4.9 g/dL 4.5 Calcium 8.5 - 10.2 mg/dL 10.5 (H) Bilirubin, Total 0.2 - 1.3 mg/dL 0.3 Alkaline Phosphatase 34 - 123 U/L 68 AST 13 - 35 U/L 24 ALT 7 - 38 U/L 41 (H) Glucose 74 - 99 mg/dL 152 (H) BUN 7 - 21 mg/dL 20 Creatinine 0.58 - 0.96 mg/dL 0.63 Sodium 136 - 144 mmol/L 142 Potassium 3.7 - 5.1 mmol/L 4.3 Chloride 98 - 107 mmol/L 101 CO2 22 - 30 mmol/L 30 Anion Gap 8 - 15 mmol/L 11 eGFR >=60 mL/min/1.73m? 102 Total Cholesterol, Nonfasting <200 mg/dL 191 Triglycerides, Nonfasting <150 mg/dL 113 HDL Cholesterol, Nonfasting >39 mg/dL 60 LDL Cholesterol Calculated, Nonfasting <100 mg/dL 108 (H) Non HDL Cholesterol, Nonfasting <130 mg/dL 131 (H) VLDL Cholesterol, Nonfasting <30 mg/dL 23 Total Chol/HDL Ratio, Nonfasting <5.10 mg/dL 3.18 LDL/HDL Ratio, Nonfasting <2.54 mg/dL 1.80 Hemoglobin A1C 4.3 - 5.6 % 6.2 (H) Estimated Average Glucose mg/dL 131 Normalized Calcium 1.08 - 1.30 mmol/L 1.29 Ionized Calcium 1.08 - 1.30 mmol/L 1.27 PTH, Intact 15 - 65 pg/mL 27 Vitamin D 25 Hydroxy 31.0 - 80.0 ng/mL 49.7 Legend: (H) High MEDICATIONS: Current Outpatient Medications Medication Sig amLODIPine (NORVASC) 10 mg tablet Take 1 tablet by mouth once daily. escitalopram oxalate (LEXAPRO) 5 mg tablet Take 1 tablet by mouth every afternoon. Cholecalciferol, Vitamin D3, 25 mcg (1,000 unit) cap 1 caps daily during the summer, 2 caps daily during winter Patient should start on March 25, 2024. metFORMIN (GLUCOPHAGE) 500 mg tablet Take 1 tablet by mouth two times a day with meals. . Patient should start on March 25, 2024. potassium chloride (K-TAB) 10 mEq tablet Take 1 tablet by mouth two times a day. Patient should start on March 25, 2024. atorvastatin (LIPITOR) 20 mg tablet Take 1 tablet by mouth daily at bedtime. For cholesterol. blood sugar diagnostic (BLOOD GLUCOSE TEST) test strip Test blood sugar(s1) 1 times daily. Dx: Type 2 DM - Controlled E11.9 Insulin: Yes hydroCHLOROthiazide 25 mg tablet Take 1 tablet by mouth once daily. losartan (COZAAR) 100 mg tablet Take 1 tablet by mouth once daily. Patient should start on March 25, 2024. benztropine (COGENTIN) 1 mg tablet Take 1 mg by mouth twice daily as needed. OLANZapine (ZYPREXA) 15 mg tablet Take 15 mg by mouth daily at bedtime. Lancets lancets Test blood sugar(s) 1 times daily. Dx: Type 2 DM - Controlled E11.9 Insulin: Yes No current facility-administered medications for this visit. ALLERGIES: ALLERGIES No Known Allergies PAST MEDICAL HISTORY Diagnosis Date Bipolar I disorder, most recent episode (or current) unspecified DM (diabetes mellitus) (HCC) Dysmenorrhea Excessive or frequent menstruation Heavy periods HTN (hypertension) Hypercholesterolemia Irregular menstrual cycle Irregular periods Schizophreniform disorder, chronic condition (HCC) PAST SURGICAL HISTORY Procedure Laterality Date ANTERIOR COLPORRAPHY RPR CYSTOCELE W/CYSTO 05/22/2011 anterior repair APPENDECTOMY 13y/o Was readmitted twice with infection after APPENDECTOMY COLONOSCOPY FLX DX W/COLLJ SPEC WHEN PFRMD 06/26/2016 Colonoscopy COLONOSCOPY FLX DX W/COLLJ SPEC WHEN PFRMD 09/28/2017 Colonoscopy COLONOSCOPY FLX DX W/COLLJ SPEC WHEN PFRMD 12/13/2019 Colonoscopy COLONOSCOPY FLX DX W/COLLJ SPEC WHEN PFRMD 12/13/2019 Colonoscopy COLONOSCOPY FLX DX W/COLLJ SPEC WHEN PFRMD 12/15/2022 repeat 3 years DILATION AND CURETTAGE DXAND/THER NONOBSTETRIC Dilation AND curettage LAPAROSCOPY TOT HYSTERECTOMY >250 G W/TUBE/OVAR 05/22/2011 [facility], bilateral salpingectomy VAGINAL HYSTERECTOMY FAMILY HISTORY Problem Relation Age of Onset Prostate Cancer Father Genetic Maternal Grandmother Cancer Maternal Grandmother lymphoma Diabetes Maternal Aunt Diabetes Maternal Aunt Social History Tobacco Use Smoking status: Former Current packs/day: 0.10 Average packs/day: 0.1 packs/ (more content not included)... [facility] 09-06-2024 History of Present illness Narrative Patient presents with: Hypertension HPI: Patient presents today for office visit for blood pressure follow up. Saw Pattie Joe on 07/04/24. States when SILVANO checked her BP it was 144/80. When Pattie came in the room patient states she put the cuff on her arm but did not pump it up and was told that the recheck was still high. Amlodipine was increased to 10 mg daily at that time. She had 5 mg tabs at home and was told to take 2 tablets until increased dose arrived from pharmacy. She never received new Rx from pharmacy and did not follow up on this. Still currently only taking 5 mg one tab daily because she didn't want to run out. Denies chest pain. Shortness of breath with exertion. Denies headaches and dizziness. Denies palpitations and syncope. Some edema to right ankle and in B/L hands. Latest Ref Rng 07/04/2024 07/11/2024 Protein, Total 6.3 - 8.0 g/dL 7.7 Albumin 3.9 - 4.9 g/dL 4.5 Calcium 8.5 - 10.2 mg/dL 10.5 (H) Bilirubin, Total 0.2 - 1.3 mg/dL 0.3 Alkaline Phosphatase 34 - 123 U/L 68 AST 13 - 35 U/L 24 ALT 7 - 38 U/L 41 (H) Glucose 74 - 99 mg/dL 152 (H) BUN 7 - 21 mg/dL 20 Creatinine 0.58 - 0.96 mg/dL 0.63 Sodium 136 - 144 mmol/L 142 Potassium 3.7 - 5.1 mmol/L 4.3 Chloride 98 - 107 mmol/L 101 CO2 22 - 30 mmol/L 30 Anion Gap 8 - 15 mmol/L 11 eGFR >=60 mL/min/1.73m 102 Total Cholesterol, Nonfasting <200 mg/dL 191 Triglycerides, Nonfasting <150 mg/dL 113 HDL Cholesterol, Nonfasting >39 mg/dL 60 LDL Cholesterol Calculated, Nonfasting <100 mg/dL 108 (H) Non HDL Cholesterol, Nonfasting <130 mg/dL 131 (H) VLDL Cholesterol, Nonfasting <30 mg/dL 23 Total Chol/HDL Ratio, Nonfasting <5.10 mg/dL 3.18 LDL/HDL Ratio, Nonfasting <2.54 mg/dL 1.80 Hemoglobin A1C 4.3 - 5.6 % 6.2 (H) Estimated Average Glucose mg/dL 131 Normalized Calcium 1.08 - 1.30 mmol/L 1.29 Ionized Calcium 1.08 - 1.30 mmol/L 1.27 PTH, Intact 15 - 65 pg/mL 27 Vitamin D 25 Hydroxy 31.0 - 80.0 ng/mL 49.7 Legend: (H) High MEDICATIONS: Current Outpatient Medications Medication Sig amLODIPine (NORVASC) 10 mg tablet Take 1 tablet by mouth once daily. escitalopram oxalate (LEXAPRO) 5 mg tablet Take 1 tablet by mouth every afternoon. Cholecalciferol, Vitamin D3, 25 mcg (1,000 unit) cap 1 caps daily during the summer, 2 caps daily during winter Patient should start on March 25, 2024. metFORMIN (GLUCOPHAGE) 500 mg tablet Take 1 tablet by mouth two times a day with meals. . Patient should start on March 25, 2024. potassium chloride (K-TAB) 10 mEq tablet Take 1 tablet by mouth two times a day. Patient should start on March 25, 2024. atorvastatin (LIPITOR) 20 mg tablet Take 1 tablet by mouth daily at bedtime. For cholesterol. blood sugar diagnostic (BLOOD GLUCOSE TEST) test strip Test blood sugar(s1) 1 times daily. Dx: Type 2 DM - Controlled E11.9 Insulin: Yes hydroCHLOROthiazide 25 mg tablet Take 1 tablet by mouth once daily. losartan (COZAAR) 100 mg tablet Take 1 tablet by mouth once daily. Patient should start on March 25, 2024. benztropine (COGENTIN) 1 mg tablet Take 1 mg by mouth twice daily as needed. OLANZapine (ZYPREXA) 15 mg tablet Take 15 mg by mouth daily at bedtime. Lancets lancets Test blood sugar(s) 1 times daily. Dx: Type 2 DM - Controlled E11.9 Insulin: Yes No current facility-administered medications for this visit. ALLERGIES: ALLERGIES No Known Allergies PAST MEDICAL HISTORY Diagnosis Date Bipolar I disorder, most recent episode (or current) unspecified DM (diabetes mellitus) (HCC) Dysmenorrhea Excessive or frequent menstruation Heavy periods HTN (hypertension) Hypercholesterolemia Irregular menstrual cycle Irregular periods Schizophreniform disorder, chronic condition (HCC) PAST SURGICAL HISTORY Procedure Laterality Date ANTERIOR COLPORRAPHY RPR CYSTOCELE W/CYSTO 05/22/2011 anterior repair APPENDECTOMY 13y/o Was readmitted twice with infection after APPENDECTOMY COLONOSCOPY FLX DX W/COLLJ SPEC WHEN PFRMD 06/26/2016 Colonoscopy COLONOSCOPY FLX DX W/COLLJ SPEC WHEN PFRMD 09/28/2017 Colonoscopy COLONOSCOPY FLX DX W/COLLJ SPEC WHEN PFRMD 12/13/2019 Colonoscopy COLONOSCOPY FLX DX W/COLLJ SPEC WHEN PFRMD 12/13/2019 Colonoscopy COLONOSCOPY FLX DX W/COLLJ SPEC WHEN PFRMD 12/15/2022 repeat 3 years DILATION & CURETTAGE DX&/THER NONOBSTETRIC Dilation & curettage LAPAROSCOPY TOT HYSTERECTOMY >250 G W/TUBE/OVAR 05/22/2011 [facility], bilateral salpingectomy VAGINAL HYSTERECTOMY FAMILY HISTORY Problem Relation Age of Onset Prostate Cancer Father Genetic Maternal Grandmother Cancer Maternal Grandmother lymphoma Diabetes Maternal Aunt Diabetes Maternal Aunt Social History Tobacco Use Smoking status: Former Current packs/day: 0.10 Average packs/day: 0.1 packs/day for 2.0 years (0.2 ttl pk-yrs) Types: Cigarettes Smokeless tobacco: Current Types: Snuff Tobacco comments: one cigarette daily 35 years ago,no longer smoking now Vaping Use Vaping status: Never Used Substance Use Topics Alcohol use: No Comment: 3/year Drug use: No Reviewed current medications, allergies, past medical history, surgical history, family history and social history today. REVIEW OF SYSTEMS All other reviewed and negative other than HPI. HEALTH MAINTENANCE: Reviewed health maintenance issues today and recommended the following in detail. BP Controlled (<130/80) Never done VITALS: BP 136/84 Pulse 74 Ht 160 cm (5' 3) Wt 102.1 kg (225 lb) LMP 04/30/2010 SpO2 92% BMI 39.86 kg/m Last 4 Encounter Wt Readings: Date: Wt: 07/04/2024 101.2 kg (223 lb) 01/04/2024 84.4 kg (186 lb) 06/29/2023 93 kg (205 lb) 12/23/2022 92.1 kg (203 lb) PHYSICAL EXAMINATION: General appearance: Well appearing, alert, in no acute distress, well-hydrated, well nourished. Skin: Skin color, texture, turgor normal, no suspicious rashes or lesions Head: Normocephalic, no masses, lesions, tenderness or abnormalities Lungs: Lungs clear to auscultation. No wheezing, rhonchi, rales Heart: RRR without murmur, gallop, or rubs. No ectopy Abdomen: Normal abdominal exam, Abdomen soft, non-tender. Bowel sounds normal. No masses, organomegaly Extremities: No deformities, edema, skin discoloration, clubbing or cyanosis. Good capillary refill. ASSESSMENT/PLAN: 1. Essential hypertension - ICD9: 401.9, ICD10: I10 (primary diagnosis) - Controlled - Continue current medications - Discussed need for and benefit of weight loss. BMI 39.86 kg/(m^2) - AMLODIPINE 5 MG TABLET - COMPREHENSIVE METABOLIC PANEL 2. Fatty liver - ICD9: 571.8, ICD10: K76.0 - watch diet. - COMPREHENSIVE METABOLIC PANEL 3. Type 2 diabetes mellitus without complication, without long-term current use of insulin (HCC) - ICD9: 250.00, ICD10: E11.9 - Controlled. Get labs at next ov - Continue current medications - HEMOGLOBIN A1C - COMPREHENSIVE METABOLIC PANEL 4. Schizophreniform disorder, chronic condition (HCC) - ICD9: 295.42, ICD10: F20.81 - see psych. Anand Colbert MD RTO in six months documented in this encounter [facility] 07-12-2024 Telephone encounter Note Patient was made aware of the results. Patient verbalizes understanding. Glenys Masterson Ma [facility] 07-12-2024 Miscellaneous Notes Patient was made aware of the results. Patient verbalizes understanding. Glenys Masterson Ma ----- Message from Tiffany Joe sent at 07/12/2024 8:09 AM EDT ----- Your labs look good. Calcium level was normal, vitamin D level was normal, parathyroid hormone perfect. No change needed. Your labs look good. Calcium level was normal, vitamin D level was normal, parathyroid hormone perfect. No change needed. documented in this encounter [facility] 07-12-2024 Telephone encounter Note ----- Message from Tiffany Joe sent at 07/12/2024 8:09 AM EDT ----- Your labs look good. Calcium level was normal, vitamin D level was normal, parathyroid hormone perfect. No change needed. [facility] 07-12-2024 Progress note Formatting of t his note might be different from the original. Your labs look good. Calcium level was normal, vitamin D level was normal, parathyroid hormone perfect. No change needed. [facility] 07-08-2024 Progress note Formatting of t his note might be different from the original. Call to pt and notified her of results and recommendations below from Provider. Pt verbalized understanding. Pt states that she will more than likely stop in and complete requested labs on Thursday. Jessica Arzola MA [facility] 07-08-2024 Miscellaneous Notes Call to pt and notified her of results and recommendations below from Provider. Pt verbalized understanding. Pt states that she will more than likely stop in and complete requested labs on Thursday. Jessica Arzola MA Left message for patient to return call. Glenys Masterson Ma ----- Message from Tiffany Joe sent at 07/05/2024 8:01 AM EDT ----- Cholesterol levels look fine. Blood sugars have been stable with a hemoglobin A1c of 6.2%. Kidney function is normal but calcium levels are high. Please ask her to come in and check her vitamin D, ionized calcium, and parathyroid hormone at her convenience. ----- Message from Tiffany Joe sent at 07/05/2024 8:01 AM EDT ----- Cholesterol levels look fine. Blood sugars have been stable with a hemoglobin A1c of 6.2%. Kidney function is normal but calcium levels are high. Please ask her to come in and check her vitamin D, ionized calcium, and parathyroid hormone at her convenience. Cholesterol levels look fine. Blood sugars have been stable with a hemoglobin A1c of 6.2%. Kidney function is normal but calcium levels are high. Please ask her to come in and check her vitamin D, ionized calcium, and parathyroid hormone at her convenience. documented in this encounter [facility] 07-05-2024 Telephone encounter Note Left message for patient to return call. Glenys Masterson Ma [facility] 07-05-2024 Telephone encounter Note ----- Message from Tiffany Joe sent at 07/05/2024 8:01 AM EDT ----- Cholesterol levels look fine. Blood sugars have been stable with a hemoglobin A1c of 6.2%. Kidney function is normal but calcium levels are high. Please ask her to come in and check her vitamin D, ionized calcium, and parathyroid hormone at her convenience. [facility] 07-05-2024 Telephone encounter Note ----- Message from Tiffany Joe sent at 07/05/2024 8:01 AM EDT ----- Cholesterol levels look fine. Blood sugars have been stable with a hemoglobin A1c of 6.2%. Kidney function is normal but calcium levels are high. Please ask her to come in and check her vitamin D, ionized calcium, and parathyroid hormone at her convenience. [facility] 07-05-2024 Progress note Formatting of t his note might be different from the original. Cholesterol levels look fine. Blood sugars have been stable with a hemoglobin A1c of 6.2%. Kidney function is normal but calcium levels are high. Please ask her to come in and check her vitamin D, ionized calcium, and parathyroid hormone at her convenience. [facility] 07-04-2024 Instructions Tiffany Joe APRN.CNP - 07/04/2024 8:25 AM EDT 1) Increase amlodipine to 10 mg daily 2) Check labs today 3) Follow up in 1 month documented in this encounter [facility] 07-04-2024 Note HNO ID: [id number] Author: TIFFANY JOE APRN.CNP Service: ? Author Type: Nurse Practitioner Type: Progress Notes Filed: 07/04/2024 08:25 Note Text: This is a 59 year old female who presents today with: Patient presents with: 6 Month Exam HISTORY OF PRESENT ILLNESS: Sara Peoples is a 59 year old female. Patient presents with: 6 Month Exam Gained weight DM: Reports overall feeling well. Medication side effects: No. Home sugar checks: this morning 105 Hypoglycemic spells: No. Watching diet: Yes. Unexpected weight loss: No. Polyuria, polydipsia: No. Luis makes her have dry mouth Vision Changes: Yes. Foot lesions or numbness or pain: No. Quit tobacco in Mar.- gained some weight PAST MEDICAL HISTORY: PAST MEDICAL HISTORY Diagnosis Date Bipolar I disorder, most recent episode (or current) unspecified DM (diabetes mellitus) (HCC) Dysmenorrhea Excessive or frequent menstruation Heavy periods HTN (hypertension) Hypercholesterolemia Irregular menstrual cycle Irregular periods Schizophreniform disorder, chronic condition (HCC) PAST SURGICAL HISTORY Procedure Laterality Date ANTERIOR COLPORRAPHY RPR CYSTOCELE W/CYSTO 05/22/2011 anterior repair APPENDECTOMY 13y/o Was readmitted twice with infection after APPENDECTOMY COLONOSCOPY FLX DX W/COLLJ SPEC WHEN PFRMD 06/26/2016 Colonoscopy COLONOSCOPY FLX DX W/COLLJ SPEC WHEN PFRMD 09/28/2017 Colonoscopy COLONOSCOPY FLX DX W/COLLJ SPEC WHEN PFRMD 12/13/2019 Colonoscopy COLONOSCOPY FLX DX W/COLLJ SPEC WHEN PFRMD 12/13/2019 Colonoscopy COLONOSCOPY FLX DX W/COLLJ SPEC WHEN PFRMD 12/15/2022 repeat 3 years DILATION AND CURETTAGE DXAND/THER NONOBSTETRIC Dilation AND curettage LAPAROSCOPY TOT HYSTERECTOMY >250 G W/TUBE/OVAR 05/22/2011 LAVH, bilateral salpingectomy VAGINAL HYSTERECTOMY ALLERGIES Patient has no known allergies. MEDICATIONS Current Outpatient Medications Medication Sig escitalopram oxalate (LEXAPRO) 5 mg tablet Take 1 tablet by mouth every afternoon. Cholecalciferol, Vitamin D3, 25 mcg (1,000 unit) cap 1 caps daily during the summer, 2 caps daily during winter Patient should start on March 25, 2024. metFORMIN (GLUCOPHAGE) 500 mg tablet Take 1 tablet by mouth two times a day with meals. . Patient should start on March 25, 2024. potassium chloride (K-TAB) 10 mEq tablet Take 1 tablet by mouth two times a day. Patient should start on March 25, 2024. amLODIPine (NORVASC) 5 mg tablet Take 1 tablet by mouth once daily. atorvastatin (LIPITOR) 20 mg tablet Take 1 tablet by mouth daily at bedtime. For cholesterol. hydroCHLOROthiazide 25 mg tablet Take 1 tablet by mouth once daily. losartan (COZAAR) 100 mg tablet Take 1 tablet by mouth once daily. Patient should start on March 25, 2024. benztropine (COGENTIN) 1 mg tablet Take 1 mg by mouth twice daily as needed. OLANZapine (ZYPREXA) 15 mg tablet Take 15 mg by mouth daily at bedtime. blood sugar diagnostic (BLOOD GLUCOSE TEST) test strip Test blood sugar(s1) 1 times daily. Dx: Type 2 DM - Controlled E11.9 Insulin: Yes Lancets lancets Test blood sugar(s) 1 times daily. Dx: Type 2 DM - Controlled E11.9 Insulin: Yes No current facility-administered medications for this visit. FAMILY HISTORY Problem Relation Age of Onset Prostate Cancer Father Genetic Maternal Grandmother Cancer Maternal Grandmother lymphoma Diabetes Maternal Aunt Diabetes Maternal Aunt Social History Tobacco Use Smoking status: Former Current packs/day: 0.10 Average packs/day: 0.1 packs/day for 2.0 years (0.2 ttl pk-yrs) Types: Cigarettes Smokeless tobacco: Current Types: Snuff Tobacco comments: one cigarette daily 35 years ago,no longer smoking now Vaping Use Vaping status: Never Used Substance Use Topics Alcohol use: No Comment: 3/year Drug use: No REVIEW OF SYSTEMS GENERAL: No weight loss, malaise or fevers/chills HEENT: Negative for frequent or significant headaches, No changes in hearing or vision. NECK: Negative for lumps, goiter, pain and significant neck swelling RESPIRATORY: Negative for cough, hemoptysis, wheezing, sometimes dyspnea or shortness of breath CARDIOVASCULAR: Negative for chest pain, leg swelling, orthopnea, or palpitations GI: No nausea, vomiting, or diarrhea/constipation. No hematochezia/melena. No heartburn or reflux symptoms. : No history of dysuria, frequency or incontinence MUSCULOSKELETAL: Negative for joint pain or swelling. SKIN: Negative for lesions, rash, and itching ENDOCRINE: Negative for cold or heat intolerance, no polyuria, + polydipsia and goiter NEURO: No history of headaches, syncope, paralysis, seizures, + tremors MOOD: Negative for depression, anxiety, or suicidal ideation. EXAM: BP 144/88 Pulse 69 Temp 36.5 ?C (97.7 ?F) (Left Tympanic) Wt 101.2 kg (223 lb) LMP 04/30/2010 SpO2 96% BMI 39.50 kg/m? PHYSICAL EXAM: Physical Exam Vitals (more content not included)... [facility] 07-04-2024 History of Present illness Narrative This is a 59 year old female who presents today with: Patient presents with: 6 Month Exam HISTORY OF PRESENT ILLNESS: Sara Peoples is a 59 year old female. Patient presents with: 6 Month Exam Gained weight DM: Reports overall feeling well. Medication side effects: No. Home sugar checks: this morning 105 Hypoglycemic spells: No. Watching diet: Yes. Unexpected weight loss: No. Polyuria, polydipsia: No. Lay[place] makes her have dry mouth Vision Changes: Yes. Foot lesions or numbness or pain: No. Quit tobacco in Mar.- gained some weight PAST MEDICAL HISTORY: PAST MEDICAL HISTORY Diagnosis Date Bipolar I disorder, most recent episode (or current) unspecified DM (diabetes mellitus) (HCC) Dysmenorrhea Excessive or frequent menstruation Heavy periods HTN (hypertension) Hypercholesterolemia Irregular menstrual cycle Irregular periods Schizophreniform disorder, chronic condition (HCC) PAST SURGICAL HISTORY Procedure Laterality Date ANTERIOR COLPORRAPHY RPR CYSTOCELE W/CYSTO 05/22/2011 anterior repair APPENDECTOMY 13y/o Was readmitted twice with infection after APPENDECTOMY COLONOSCOPY FLX DX W/COLLJ SPEC WHEN PFRMD 06/26/2016 Colonoscopy COLONOSCOPY FLX DX W/COLLJ SPEC WHEN PFRMD 09/28/2017 Colonoscopy COLONOSCOPY FLX DX W/COLLJ SPEC WHEN PFRMD 12/13/2019 Colonoscopy COLONOSCOPY FLX DX W/COLLJ SPEC WHEN PFRMD 12/13/2019 Colonoscopy COLONOSCOPY FLX DX W/COLLJ SPEC WHEN PFRMD 12/15/2022 repeat 3 years DILATION & CURETTAGE DX&/THER NONOBSTETRIC Dilation & curettage LAPAROSCOPY TOT HYSTERECTOMY >250 G W/TUBE/OVAR 05/22/2011 LAVH, bilateral salpingectomy VAGINAL HYSTERECTOMY ALLERGIES Patient has no known allergies. MEDICATIONS Current Outpatient Medications Medication Sig escitalopram oxalate (LEXAPRO) 5 mg tablet Take 1 tablet by mouth every afternoon. Cholecalciferol, Vitamin D3, 25 mcg (1,000 unit) cap 1 caps daily during the summer, 2 caps daily during winter Patient should start on March 25, 2024. metFORMIN (GLUCOPHAGE) 500 mg tablet Take 1 tablet by mouth two times a day with meals. . Patient should start on March 25, 2024. potassium chloride (K-TAB) 10 mEq tablet Take 1 tablet by mouth two times a day. Patient should start on March 25, 2024. amLODIPine (NORVASC) 5 mg tablet Take 1 tablet by mouth once daily. atorvastatin (LIPITOR) 20 mg tablet Take 1 tablet by mouth daily at bedtime. For cholesterol. hydroCHLOROthiazide 25 mg tablet Take 1 tablet by mouth once daily. losartan (COZAAR) 100 mg tablet Take 1 tablet by mouth once daily. Patient should start on March 25, 2024. benztropine (COGENTIN) 1 mg tablet Take 1 mg by mouth twice daily as needed. OLANZapine (ZYPREXA) 15 mg tablet Take 15 mg by mouth daily at bedtime. blood sugar diagnostic (BLOOD GLUCOSE TEST) test strip Test blood sugar(s1) 1 times daily. Dx: Type 2 DM - Controlled E11.9 Insulin: Yes Lancets lancets Test blood sugar(s) 1 times daily. Dx: Type 2 DM - Controlled E11.9 Insulin: Yes No current facility-administered medications for this visit. FAMILY HISTORY Problem Relation Age of Onset Prostate Cancer Father Genetic Maternal Grandmother Cancer Maternal Grandmother lymphoma Diabetes Maternal Aunt Diabetes Maternal Aunt Social History Tobacco Use Smoking status: Former Current packs/day: 0.10 Average packs/day: 0.1 packs/day for 2.0 years (0.2 ttl pk-yrs) Types: Cigarettes Smokeless tobacco: Current Types: Snuff Tobacco comments: one cigarette daily 35 years ago,no longer smoking now Vaping Use Vaping status: Never Used Substance Use Topics Alcohol use: No Comment: 3/year Drug use: No REVIEW OF SYSTEMS GENERAL: No weight loss, malaise or fevers/chills HEENT: Negative for frequent or significant headaches, No changes in hearing or vision. NECK: Negative for lumps, goiter, pain and significant neck swelling RESPIRATORY: Negative for cough, hemoptysis, wheezing, sometimes dyspnea or shortness of breath CARDIOVASCULAR: Negative for chest pain, leg swelling, orthopnea, or palpitations GI: No nausea, vomiting, or diarrhea/constipation. No hematochezia/melena. No heartburn or reflux symptoms. : No history of dysuria, frequency or incontinence MUSCULOSKELETAL: Negative for joint pain or swelling. SKIN: Negative for lesions, rash, and itching ENDOCRINE: Negative for cold or heat intolerance, no polyuria, + polydipsia and goiter NEURO: No history of headaches, syncope, paralysis, seizures, + tremors MOOD: Negative for depression, anxiety, or suicidal ideation. EXAM: BP 144/88 Pulse 69 Temp 36.5 C (97.7 F) (Left Tympanic) Wt 101.2 kg (223 lb) LMP 04/30/2010 SpO2 96% BMI 39.50 kg/m PHYSICAL EXAM: Physical Exam Vitals reviewed. Constitutional: Appearance: Normal appearance. HENT: Head: Normocephalic. Neck: Vascular: No carotid bruit. Cardiovascular: Rate and Rhythm: Normal rate and regular rhythm. Pulses: Normal pulses. Heart sounds: Normal heart sounds. Comments: Diminished at apex Pulmonary: Effort: Pulmonary effort is normal. Breath sounds: Normal breath sounds. Abdominal: General: Bowel sounds are normal. Palpations: Abdomen is soft. Tenderness: There is no abdominal tenderness. There is no guarding or rebound. Musculoskeletal: General: Normal range of motion. Right lower leg: No edema. Left lower leg: No edema. Lymphadenopathy: Cervical: No cervical adenopathy. Skin: General: Skin is warm and dry. Neurological: Mental Status: She is alert and oriented to person, place, and time. Psychiatric: Mood and Affect: Mood normal. Behavior: Behavior normal. LABS: ASSESSMENT/PLAN: 1. Type 2 diabetes mellitus without complication, without long-term current use of insulin (HCC) - ICD9: 250.00, ICD10: E11.9 (primary diagnosis) - Control undetermined, due for labs - Continue current medications - HEMOGLOBIN A1C - COMPREHENSIVE METABOLIC PANEL 2. Essential hypertension - ICD9: 401.9, ICD10: I10 Uncontrolled - Recommend home blood pressure monitoring, to bring results to next visit - Encouraged sodium restriction, DASH or Mediterranean diet - Recommend regular aerobic exercise - AMLODIPINE 10 MG TABLET increased from 5 mg, continue losartan and HCTZ - COMPREHENSIVE METABOLIC PANEL 3. Bipolar I disorder (HCC) - ICD9: 296.7, ICD10: F31.9 Stable 4. Schizophreniform disorder, chronic condition (HCC) - ICD9: 295.42, ICD10: F20.81 Stable 5. 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 Hyperlipidemia, mixed - ICD9: 272.2, ICD10: E78.2 - Control undetermined, due for labs - Counseled on healthy diet and regular exercise - LIPID PANEL, NONFASTING Discussed treatment plan and patient voices understanding. Patient's questions answered appropriately. Medications and potential side effects were discussed and patient voices understanding. Return to the office as scheduled or as needed for worsening/no improvement. Tiffany Joe APRN.[employer]TER documented in this encounter [facility] 01-05-2024 Telephone encounter Note Letter mailed to pt home of results. Kortney Stephenson MA [facility] 01-05-2024 Miscellaneous Notes Letter mailed to pt home of results. Kortney Stephenson MA ----- Message from Tiffany Joe sent at 01/05/2024 9:16 AM EDT ----- Blood sugar has been stable. Liver function is slightly elevated. Please avoid excessive use of [id number] products that contain acetaminophen, naproxen, ibuprofen or alcohol. Potassium level is slightly decreased. Please include foods rich in potassium to your diet such as potato skins, oranges, orange juice, tomato juice and bananas. documented in this encounter [facility] 01-05-2024 Telephone encounter Note ----- Message from Tiffany Joe sent at 01/05/2024 9:16 AM EDT ----- Blood sugar has been stable. Liver function is slightly elevated. Please avoid excessive use of [id number] products that contain acetaminophen, naproxen, ibuprofen or alcohol. Potassium level is slightly decreased. Please include foods rich in potassium to your diet such as potato skins, oranges, orange juice, tomato juice and bananas. [facility] 01-04-2024 Instructions Tiffany Joe APRN.DARIO - 01/04/2024 9:03 AM EDT 1) Check labs 2) Pneumonia vaccine 3) Check labs 4) Augmentin 2 x day for 10 days 5) Saline nasal spray frequently while on antibiotic 6) Follow up in 6 months documented in this encounter [facility] 01-04-2024 Note HNO ID: [id number] Author: TIFFANY JOE APRN.DARIO Service: ? Author Type: Clinical Nurse Specialist Type: Progress Notes Filed: 01/04/2024 10:05 Note Text: This is a 58 year old female who presents today with: No chief complaint on file. HISTORY OF PRESENT ILLNESS: Sara Peoples is a 58 year old female. No chief complaint on file. Here for a check up. Throat feels thick and sore throat off and on for a month. DM: Reports overall feeling well. Medication side effects: No. Home sugar checks: yes Hypoglycemic spells: No. Watching diet: Yes. Unexpected weight loss: No. Polyuria, polydipsia: No. Vision Changes: No. Foot lesions or numbness or pain: No Smoked for 5 years and used snuff for 10 years Quit 5 years ago. PAST MEDICAL HISTORY: PAST MEDICAL HISTORY No date: Bipolar I disorder, most recent episode (or current) unspecified No date: DM (diabetes mellitus) (HCC) No date: Dysmenorrhea No date: Excessive or frequent menstruation Comment: Heavy periods No date: HTN (hypertension) No date: Hypercholesterolemia No date: Irregular menstrual cycle Comment: Irregular periods No date: Schizophreniform disorder, chronic condition (HCC) PAST SURGICAL HISTORY 05/22/2011: ANTERIOR COLPORRAPHY RPR CYSTOCELE W/CYSTO Comment: anterior repair No date: APPENDECTOMY Comment: 13y/o Was readmitted twice with infection after No date: APPENDECTOMY 06/26/2016: COLONOSCOPY FLX DX W/COLLJ SPEC WHEN PFRMD Comment: Colonoscopy 09/28/2017: COLONOSCOPY FLX DX W/COLLJ SPEC WHEN PFRMD Comment: Colonoscopy 12/13/2019: COLONOSCOPY FLX DX W/COLLJ SPEC WHEN PFRMD Comment: Colonoscopy 12/13/2019: COLONOSCOPY FLX DX W/COLLJ SPEC WHEN PFRMD Comment: Colonoscopy 12/15/2022: COLONOSCOPY FLX DX W/COLLJ SPEC WHEN PFRMD Comment: repeat 3 years No date: DILATION AND CURETTAGE DXAND/THER NONOBSTETRIC Comment: Dilation AND curettage 05/22/2011: LAPAROSCOPY TOT HYSTERECTOMY >250 G W/TUBE/OVAR Comment: LAVH, bilateral salpingectomy No date: VAGINAL HYSTERECTOMY ALLERGIES Patient has no known allergies. MEDICATIONS Current Outpatient Medications Medication Sig escitalopram oxalate (LEXAPRO) 5 mg tablet Take 1 tablet by mouth every afternoon. hydroCHLOROthiazide 25 mg tablet Take 1 tablet by mouth once daily. atorvastatin (LIPITOR) 20 mg tablet Take 1 tablet by mouth daily at bedtime. For cholesterol. amLODIPine (NORVASC) 5 mg tablet Take 1 tablet by mouth once daily. benztropine (COGENTIN) 1 mg tablet Take 1 mg by mouth twice daily as needed. OLANZapine (ZYPREXA) 15 mg tablet Take 15 mg by mouth daily at bedtime. blood sugar diagnostic (BLOOD GLUCOSE TEST) test strip Test blood sugar(s1) 1 times daily. Dx: Type 2 DM - Controlled E11.9 Insulin: Yes Lancets lancets Test blood sugar(s) 1 times daily. Dx: Type 2 DM - Controlled E11.9 Insulin: Yes [START ON 03/25/2024] Cholecalciferol, Vitamin D3, 25 mcg (1,000 unit) cap 1 caps daily during the summer, 2 caps daily during winter Patient should start on March 25, 2024. [START ON 03/25/2024] losartan (COZAAR) 100 mg tablet Take 1 tablet by mouth once daily. Patient should start on March 25, 2024. [START ON 03/25/2024] metFORMIN (GLUCOPHAGE) 500 mg tablet Take 1 tablet by mouth two times a day with meals. . Patient should start on March 25, 2024. [START ON 03/25/2024] potassium chloride (K-TAB) 10 mEq tablet Take 1 tablet by mouth two times a day. Patient should start on March 25, 2024. No current facility-administered medications for this visit. FAMILY HISTORY Problem Relation Age of Onset Prostate Cancer Father Genetic Maternal Grandmother Cancer Maternal Grandmother lymphoma Diabetes Maternal Aunt Diabetes Maternal Aunt Social History Tobacco Use Smoking status: Former Current packs/day: 0.10 Average packs/day: 0.1 packs/day for 2.0 years (0.2 ttl pk-yrs) Types: Cigarettes Smokeless tobacco: Current Types: Snuff Tobacco comments: one cigarette daily 35 years ago,no longer smoking now Vaping Use Vaping status: Never Used Substance Use Topics Alcohol use: No Comment: 3/year Drug use: No REVIEW OF SYSTEMS GENERAL: Some weight loss with effort, no malaise or fevers/chills HEENT: Negative for frequent or significant headaches, No changes in hearing or vision. NECK: Negative for lumps, goiter, pain and significant neck swelling RESPIRATORY: + dry cough, no hemoptysis, no wheezing, dyspnea or shortness of breath a little with climbing stairs CARDIOVASCULAR: Negative for chest pain, leg swelling, orthopnea, or palpitations GI: No nausea, vomiting, or diarrhea/constipation. No hematochezia/melena. No heartburn or reflux symptoms. : No history of dysuria, frequency or incontinence MUSCULOSKELETAL: Some joint pain and swelling of hands- stiffness lasts until morning coffee SKIN: Negative for lesions, rash, and itching ENDOCRINE: Negative for cold or heat into (more content not included)... [facility] 01-04-2024 History of Present illness Narrative This is a 58 year old female who presents today with: No chief complaint on file. HISTORY OF PRESENT ILLNESS: Sara Peoples is a 58 year old female. No chief complaint on file. Here for a check up. Throat feels thick and sore throat off and on for a month. DM: Reports overall feeling well. Medication side effects: No. Home sugar checks: yes Hypoglycemic spells: No. Watching diet: Yes. Unexpected weight loss: No. Polyuria, polydipsia: No. Vision Changes: No. Foot lesions or numbness or pain: No Smoked for 5 years and used snuff for 10 years Quit 5 years ago. PAST MEDICAL HISTORY: PAST MEDICAL HISTORY No date: Bipolar I disorder, most recent episode (or current) unspecified No date: DM (diabetes mellitus) (HCC) No date: Dysmenorrhea No date: Excessive or frequent menstruation Comment: Heavy periods No date: HTN (hypertension) No date: Hypercholesterolemia No date: Irregular menstrual cycle Comment: Irregular periods No date: Schizophreniform disorder, chronic condition (HCC) PAST SURGICAL HISTORY 05/22/2011: ANTERIOR COLPORRAPHY RPR CYSTOCELE W/CYSTO Comment: anterior repair No date: APPENDECTOMY Comment: 13y/o Was readmitted twice with infection after No date: APPENDECTOMY 06/26/2016: COLONOSCOPY FLX DX W/COLLJ SPEC WHEN PFRMD Comment: Colonoscopy 09/28/2017: COLONOSCOPY FLX DX W/COLLJ SPEC WHEN PFRMD Comment: Colonoscopy 12/13/2019: COLONOSCOPY FLX DX W/COLLJ SPEC WHEN PFRMD Comment: Colonoscopy 12/13/2019: COLONOSCOPY FLX DX W/COLLJ SPEC WHEN PFRMD Comment: Colonoscopy 12/15/2022: COLONOSCOPY FLX DX W/COLLJ SPEC WHEN PFRMD Comment: repeat 3 years No date: DILATION & CURETTAGE DX&/THER NONOBSTETRIC Comment: Dilation & curettage 05/22/2011: LAPAROSCOPY TOT HYSTERECTOMY >250 G W/TUBE/OVAR Comment: LAVH, bilateral salpingectomy No date: VAGINAL HYSTERECTOMY ALLERGIES Patient has no known allergies. MEDICATIONS Current Outpatient Medications Medication Sig escitalopram oxalate (LEXAPRO) 5 mg tablet Take 1 tablet by mouth every afternoon. hydroCHLOROthiazide 25 mg tablet Take 1 tablet by mouth once daily. atorvastatin (LIPITOR) 20 mg tablet Take 1 tablet by mouth daily at bedtime. For cholesterol. amLODIPine (NORVASC) 5 mg tablet Take 1 tablet by mouth once daily. benztropine (COGENTIN) 1 mg tablet Take 1 mg by mouth twice daily as needed. OLANZapine (ZYPREXA) 15 mg tablet Take 15 mg by mouth daily at bedtime. blood sugar diagnostic (BLOOD GLUCOSE TEST) test strip Test blood sugar(s1) 1 times daily. Dx: Type 2 DM - Controlled E11.9 Insulin: Yes Lancets lancets Test blood sugar(s) 1 times daily. Dx: Type 2 DM - Controlled E11.9 Insulin: Yes [START ON 03/25/2024] Cholecalciferol, Vitamin D3, 25 mcg (1,000 unit) cap 1 caps daily during the summer, 2 caps daily during winter Patient should start on March 25, 2024. [START ON 03/25/2024] losartan (COZAAR) 100 mg tablet Take 1 tablet by mouth once daily. Patient should start on March 25, 2024. [START ON 03/25/2024] metFORMIN (GLUCOPHAGE) 500 mg tablet Take 1 tablet by mouth two times a day with meals. . Patient should start on March 25, 2024. [START ON 03/25/2024] potassium chloride (K-TAB) 10 mEq tablet Take 1 tablet by mouth two times a day. Patient should start on March 25, 2024. No current facility-administered medications for this visit. FAMILY HISTORY Problem Relation Age of Onset Prostate Cancer Father Genetic Maternal Grandmother Cancer Maternal Grandmother lymphoma Diabetes Maternal Aunt Diabetes Maternal Aunt Social History Tobacco Use Smoking status: Former Current packs/day: 0.10 Average packs/day: 0.1 packs/day for 2.0 years (0.2 ttl pk-yrs) Types: Cigarettes Smokeless tobacco: Current Types: Snuff Tobacco comments: one cigarette daily 35 years ago,no longer smoking now Vaping Use Vaping status: Never Used Substance Use Topics Alcohol use: No Comment: 3/year Drug use: No REVIEW OF SYSTEMS GENERAL: Some weight loss with effort, no malaise or fevers/chills HEENT: Negative for frequent or significant headaches, No changes in hearing or vision. NECK: Negative for lumps, goiter, pain and significant neck swelling RESPIRATORY: + dry cough, no hemoptysis, no wheezing, dyspnea or shortness of breath a little with climbing stairs CARDIOVASCULAR: Negative for chest pain, leg swelling, orthopnea, or palpitations GI: No nausea, vomiting, or diarrhea/constipation. No hematochezia/melena. No heartburn or reflux symptoms. : No history of dysuria, frequency or incontinence MUSCULOSKELETAL: Some joint pain and swelling of hands- stiffness lasts until morning coffee SKIN: Negative for lesions, rash, and itching ENDOCRINE: Negative for cold or heat intolerance, no polyuria, + polydipsia NEURO: No history of headaches, syncope, paralysis, seizures or tremors MOOD: Negative for depression, anxiety, or suicidal ideation. EXAM: BP 120/82 Pulse 92 Resp 16 Wt 84.4 kg (186 lb) LMP 04/30/2010 SpO2 96% BMI 32.95 kg/m PHYSICAL EXAM: Physical Exam Vitals reviewed. Constitutional: Appearance: Normal appearance. She is obese. HENT: Head: Normocephalic. Right Ear: Tympanic membrane, ear canal and external ear normal. There is no impacted cerumen. Left Ear: Tympanic membrane, ear canal and external ear normal. There is no impacted cerumen. Nose: Congestion and rhinorrhea present. Comments: Right side of nare, eroded with some bleeding & purulent matter Mouth/Throat: Mouth: Mucous membranes are moist. Pharynx: Oropharyngeal exudate present. No posterior oropharyngeal erythema. Neck: Vascular: No carotid bruit. Cardiovascular: Rate and Rhythm: Normal rate and regular rhythm. Pulses: Normal pulses. Heart sounds: Normal heart sounds. Pulmonary: Effort: Pulmonary effort is normal. Breath sounds: Normal breath sounds. Abdominal: General: Bowel sounds are normal. There is no distension. Palpations: Abdomen is soft. Tenderness: There is no abdominal tenderness. There is no guarding or rebound. Musculoskeletal: General: Normal range of motion. Cervical back: Normal range of motion. Lymphadenopathy: Cervical: No cervical adenopathy. Skin: General: Skin is warm and dry. Neurological: General: No focal deficit present. Mental Status: She is alert. Psychiatric: Mood and Affect: Mood normal. Behavior: Behavior normal. LABS: check labs ASSESSMENT/PLAN: 1. Vitamin D deficiency - ICD9: 268.9, ICD10: E55.9 (primary diagnosis) Check labs - CHOLECALCIFEROL (VITAMIN D3) 25 MCG (1,000 UNIT) CAPSULE 2. Essential hypertension - ICD9: 401.9, ICD10: I10 - Controlled - Recommend home blood pressure monitoring, to bring results to next visit - Encouraged sodium restriction, DASH or Mediterranean diet - Recommend regular aerobic exercise - LOSARTAN 100 MG TABLET 3. Type 2 diabetes mellitus without complication, without long-term current use of insulin (HCC) - ICD9: 250.00, ICD10: E11.9 - Control undetermined, due for labs - Continue current medications - METFORMIN 500 MG TABLET - POTASSIUM CHLORIDE ER 10 MEQ TABLET,EXTENDED RELEASE 4. Acute recurrent maxillary sinusitis - ICD9: 461.0, ICD10: J01.01 - Will begin treatment with Augmentin 875 mg PO BID for 10 days 5. Primary hypertension - ICD9: 401.9, ICD10: I10 - Controlled - Recommend home blood pressure monitoring, to bring results to next visit - Encouraged sodium restriction, DASH or Mediterranean diet - Recommend regular aerobic exercise 6. Hyperlipidemia, mixed - ICD9: 272.2, ICD10: E78.2 - Controlled - Counseled on healthy diet and regular exercise 7. Constitutional obesity - ICD9: 278.00, ICD10: E66.8 Weight decreasing - Behavioral intervention 8. Schizophreniform disorder, chronic condition (HCC) - ICD9: 295.42, ICD10: F20.81 Stable Discussed treatment plan and patient voices understanding. Patient's questions answered appropriately. Medications and potential side effects were discussed and patient voices understanding. Return to the office as scheduled or as needed for worsening/no improvement. Tiffany Joe APRN.CNP documented in this encounter [facility] 06-29-2023 History of Present illness Narrative 58 year old female with c/o here for follow up Essential hypertension (primary encounter diagnosis) Current meds: HCTZ 25mg daily Amlodipine 5mg daily Losartan 100mg daily Patient is compliant with meds No Monitors bp at home: No. If yes, readings: Denies side effects: No. Chest pain: No. Dyspnea: No. Edema: No. Palpitations: No. Syncope: No. Headache: No. Dizziness: No. Has occasional lightheadedness, getting up and down, not presyncopal Last 3 Encounter BP Readings: Date: BP: 11/13/2020 130/82 05/15/2020 126/70 11/16/2019 126/76 Last 2 Encounter Wt Readings: Date: Wt: 11/13/2020 92.1 kg (203 lb) 05/15/2020 87.1 kg (192 lb) Hyperlipidemia, mixed Current medication Atorvastatin 20mg daily Taking medication consistently Yes Observing low cholesterol high fiber diet: Muscle aches No Stomach complaints/ diarrhea No Last 2 Lipids: Component Latest Ref Rng & Units 05/12/2022 11/11/2022 Cholesterol, Total <200 mg/dL 171 161 Triglyceride <150 mg/dL 182 (H) 186 (H) HDL Cholesterol >39 mg/dL 45 46 Non HDL Cholesterol <130 mg/dL 126 115 Fasting Time hrs 14 10 VLDL Cholesterol <30 mg/dL 36 (H) 37 (H) TC:HDL Ratio <5.10 3.80 3.50 LDL Cholesterol <100 mg/dL 90 78 LDL:HDL Ratio <2.54 2.00 1.70 Type 2 diabetes mellitus without complication, without long-term current use of insulin (hcc) Current medications: Metformin 500mg twice a day with meals Taking medication as directed consistently? Yes Medical Issues / Complications: hypertension and hyperlipidemia Checking blood sugars at home? Yes. Random blood sugars Watching diet? Yes for the most part, except cookies at bedtime. Physical Activity: Regular Hypoglycemic spells? No Any visual disturbance? No Chest pain? No New numbness, tingling or loss of sensation? No Any recent foot problems, sores or rashes? No Any recent or sudden weight loss? No Change in urination? No. If yes: Any recent illness? No Last eye exam: August. Last foot exam: due. HBA1C: Hemoglobin A1C (%) Date Value 11/11/2022 5.9 05/12/2022 6.1 02/18/2021 5.9 11/07/2020 6.3 ) CMP: Glucose 111 11/11/2022 BUN 17 11/11/2022 Creatinine 0.63 11/11/2022 Sodium 138 11/11/2022 Potassium 3.8 11/11/2022 Chloride 99 11/11/2022 CO2 25 11/11/2022 Protein, Total 7.6 11/11/2022 Albumin 4.8 11/11/2022 Calcium 9.8 11/11/2022 Alkaline Phosphatase 70 11/11/2022 Bilirubin, Total 0.3 11/11/2022 AST 25 11/11/2022 ALT 36 11/11/2022 Component Latest Ref Rng & Units 11/13/2020 11/11/2021 11/11/2022 Creatinine, Ur Random (UCRR) 20.0 - 300.0 mg/dL 8.4 (L) 11.1 (L) 15.8 (L) Albumin, Urine Random mg/L <12.0 <12.0 <12.0 Albumin/Creat Ratio Not calculated Last 2 Encounter Wt Readings: Date: Wt: 11/11/2021 90.7 kg (200 lb) 11/13/2020 92.1 kg (203 lb) Constitutional obesity Not following diet but watches carbs. Schizophreniform disorder, chronic condition (hcc) Bipolar i disorder (hcc) Current meds: Olanzapine 15mg daily Benztropine 0.5mg three times a day Change in medication No. Currently in counseling? Yes. Any Medication side effects? Yes. tremors Sleep disturbance? No. Loss of interest in usual pleasurable activities?No. Quilting. Sense of guilt, shame, low self esteem?No. Energy: pretty good. Does coffee on waking. Trouble with concentration? No. Changes in appetite? No. Changes in weight? No Psychomotor retardation: No Suicidal thoughts: No Racing thoughts? No. Interpersonal/ family conflicts? No. Irritability? No. Oldest son moved out and built his own home. Misses him, comes by regularly Talking to case management specialist and Linn Chamorro [employer] Also having tremor in left foot: discussed side effects with psychiatric meds but ANTWAN Chamorro does not want to lower medication. HISTORIES FAMILY HISTORY Problem Relation Age of Onset Prostate Cancer Father Genetic Maternal Grandmother Cancer Maternal Grandmother lymphoma Diabetes Maternal Aunt Diabetes Maternal Aunt PAST MEDICAL HISTORY Diagnosis Date Bipolar I disorder, most recent episode (or current) unspecified DM (diabetes mellitus) (HCC) Dysmenorrhea Excessive or frequent menstruation Heavy periods HTN (hypertension) Hypercholesterolemia Irregular menstrual cycle Irregular periods Schizophreniform disorder, chronic condition (HCC) PAST SURGICAL HISTORY Procedure Laterality Date ANTERIOR COLPORRAPHY RPR CYSTOCELE W/CYSTO 05/22/2011 anterior repair APPENDECTOMY 13y/o Was readmitted twice with infection after APPENDECTOMY COLONOSCOPY FLX DX W/COLLJ SPEC WHEN PFRMD 06/26/2016 Colonoscopy COLONOSCOPY FLX DX W/COLLJ SPEC WHEN PFRMD 09/28/2017 Colonoscopy COLONOSCOPY FLX DX W/COLLJ SPEC WHEN PFRMD 12/13/2019 Colonoscopy COLONOSCOPY FLX DX W/COLLJ SPEC WHEN PFRMD 12/13/2019 Colonoscopy COLONOSCOPY FLX DX W/COLLJ SPEC WHEN PFRMD 12/15/2022 repeat 3 years DILATION & CURETTAGE DX&/THER NONOBSTETRIC Dilation & curettage LAPAROSCOPY TOT HYSTERECTOMY >250 G W/TUBE/OVAR 05/22/2011 LAVH, bilateral salpingectomy VAGINAL HYSTERECTOMY Social History Tobacco Use Smoking status: Former Packs/day: 0.10 Years: 2.00 Additional pack years: 0.00 Total pack years: 0.20 Types: Cigarettes Smokeless tobacco: Current Types: Snuff Tobacco comments: one cigarette daily 35 years ago,no longer smoking now Vaping Use Vaping Use: Never used Substance Use Topics Alcohol use: No Comment: 3/year Drug use: No ACTIVE PROBLEM LIST Bipolar I Disorder (Hcc) Schizophreniform Disorder, Chronic Condition (Hcc) Anemia Htn (Hypertension) Constitutional Obesity Type 2 Diabetes Mellitus Without Complication, Without Long-Term Current Use of Insulin (Hcc) History of Colonic Polyps Current Outpatient Medications Medication Sig Dispense Refill hydroCHLOROthiazide 25 mg tablet Take 1 tablet by mouth once daily. 90 tablet 3 atorvastatin (LIPITOR) 20 mg tablet Take 1 tablet by mouth daily at bedtime. For cholesterol. 90 tablet 3 amLODIPine (NORVASC) 5 mg tablet Take 1 tablet by mouth once daily. 90 tablet 3 metFORMIN (GLUCOPHAGE) 500 mg tablet Take 1 tablet by mouth two times a day with meals. . 180 tablet 3 potassium chloride (K-TAB) 10 mEq tablet Take 1 tablet by mouth two times a day. 180 tablet 3 losartan (COZAAR) 100 mg tablet Take 1 tablet by mouth once daily. 90 tablet 3 Cholecalciferol, Vitamin D3, 25 mcg (1,000 unit) cap 1 caps daily during the summer, 2 caps daily during winter 180 capsule 3 benztropine (COGENTIN) 1 mg tablet Take 1 mg by mouth twice daily as needed. OLANZapine (ZYPREXA) 15 mg tablet Take 15 mg by mouth daily at bedtime. blood sugar diagnostic (BLOOD GLUCOSE TEST) test strip Test blood sugar(s1) 1 times daily. Dx: Type 2 DM - Controlled E11.9 Insulin: Yes 50 Strip 11 Lancets lancets Test blood sugar(s) 1 times daily. Dx: Type 2 DM - Controlled E11.9 Insulin: Yes 100 Each 11 No current facility-administered medications for this visit. Covid-19 Vaccine(1) Never done Pneumococcal Vaccine(1 of 2 - PCV) Never done BP Controlled (<130/80) Never done Mammogram Screening due on 05/09/2015 DTaP,Tdap,Td Vaccine(2 - Td or Tdap) due on 11/24/2022 Influenza Vaccine(1) due on 12/26/2022 Depression Assessment due on 04/27/2023 Diabetic Foot Exam due on 05/12/2023 HbA1C due on 05/14/2023 EXAM: BP 118/88 Pulse 88 Resp 18 Wt 93 kg (205 lb) LMP 04/30/2010 SpO2 95% BMI 36.31 kg/m Last 14 BP Last 14 Encounter BP Readings: Date: BP: 06/29/2023 118/88 12/23/2022 122/84 12/15/2022 127/82 11/11/2022 124/86 07/29/2022 130/86 05/12/2022 130/88 11/11/2021 128/76 11/13/2020 130/82 05/15/2020 126/70 11/16/2019 126/76 11/08/2019 120/74 03/21/2019 132/77 03/03/2019 130/86 02/07/2019 126/88 Pleasant adult woman in no acute distress. Alert and oriented all spheres. Normal affect and cognition. Speech normal. No deficits to learning or comprehension. Skin warm, dry, pink to lips and nailbeds. Normal turgor. Respirations regular and unlabored. HEENT: NCAT. No scleral icterus or conjunctival injection. TM's clear. Nose and oropharynx free from injection or lesion. Oral membranes moist and pink. No cervical lymph nodes. Thyroid non-tender, no masses, or enlargement. Carotids pulses 2+/4+ without bruits. No JVD with HOB at 30 degrees. Chest is normal shape. Lungs are clear to all billings with good air exchange through out. HRRR without murmur or gallop. No lifts, heaves, or rubs. Extrem: no clubbing or cyanosis. Edema: none. Extremities are warm and pink with prompt capillary refill. No tremor noted. ASSESSMENT/PLAN: 1. Encounter for immunization - ICD9: V03.89, ICD10: Z23 (primary diagnosis) - TDAP PRINTED PHARMACY INSTRUCTIONS 2. Vitamin D deficiency - ICD9: 268.9, ICD10: E55.9 - COMP METABOLIC PANEL - VITAMIN D 25 HYDROXY 3. Bipolar I disorder (HCC) - ICD9: 296.7, ICD10: F31.9 Stable, follows with psych - CBC + DIFF - COMP METABOLIC PANEL 4. Constitutional obesity - ICD9: 278.00, ICD10: E66.8 Stable - Behavioral intervention 5. Primary hypertension - ICD9: 401.9, ICD10: I10 - Controlled - Continue current medications - Recommend home blood pressure monitoring, to bring results to next visit - Encouraged sodium restriction, DASH or Mediterranean diet - Recommend regular aerobic exercise - CBC + DIFF - COMP METABOLIC PANEL 6. Schizophreniform disorder, chronic condition (HCC) - ICD9: 295.42, ICD10: F20.81 Follows with psych, stable 7. Type 2 diabetes mellitus without complication, without long-term current use of insulin (HCC) - ICD9: 250.00, ICD10: E11.9 - Controlled - Continue current medications - HGB A1C - CBC + DIFF - COMP METABOLIC PANEL - LIPID PANEL BASIC 8. Occasional tremors - ICD9: 781.0, ICD10: R25.1 In left foot only. Psych feels medication related Some of this note may have been copied and pasted for the purpose of history context and comparison and has been adjusted for changes in prior data. Jackeline Blue PA-C documented in this encounter [facility] 06-22-2023 Miscellaneous Notes Patient has been identified by name and date of : Yes Last office visit in this department: Visit date not found RX INSTRUCTIONS: Patient aware RX will be sent to pharmacy. No need to notify patient. Patient phones requesting refills as follows: last appt 10/2022 next appt is 06/29/2023 Requested Prescriptions Pending Prescriptions Disp Refills hydroCHLOROthiazide 25 mg tablet 90 tablet 3 Sig: Take 1 tablet by mouth once daily. atorvastatin (LIPITOR) 20 mg tablet 90 tablet 3 Sig: Take 1 tablet by mouth daily at bedtime. For cholesterol. amLODIPine (NORVASC) 5 mg tablet 90 tablet 3 Sig: Take 1 tablet by mouth once daily. Please review and advise. Gretel Pineda documented in this encounter [facility] 12-23-2022 Instructions Eugenia Perez PA-C - 12/23/2022 9:47 AM EDT Recommend daily fiber supplement such as citrucel, benefiber, metamucil etc The following instructions are important for you related to your office visit today with the [facility]. INSTRUCTIONS FOLLOWING A POLYP FOUND AT COLONOSCOPY You were found to have an adenomatous colon polyp. I recommend you undergo repeat endoscopy in 3-5 years based on polyp and prep. If you note bleeding, change in bowel habits, or other suspicious colon related symptoms before that time, those symptoms should be evaluated as necessary. If you have any difficulties or concerns, you should contact our office immediately. INSTRUCTIONS FOR CONSTIPATION Constipation in the setting of a normal endoscopy can almost always be managed with the following modifications. A high fiber diet including increasing whole grains, fruits and vegetables and increasing liquid intake will improve most issues with constipation. Please note that increasing liquid intake means clear liquids or juice. 6 - 8 8 ounce glasses of liquid per day should be the goal. Caffeine containing beverages do not count towards that goal. If these modifications do not improve the constipation symptoms sufficiently, surfactant stool softers (dulcolax, docusate or similar) or Miralax can be used as needed. Miralax is now over the counter. It is typically started at 1 capful in 8 ounces of liquid daily. It can be increased (twice a day) or decreased (1/2 capful or every other day) as needed. These agents will not cause damage to the colon even if used adjunct faculty for medical terminology Plant based laxatives (Cascara, Senna, Aloin from Aloe Vera), are GI stimulants that can damage the colon if used residential. Care should be taken to review the active ingredient list on all over the counter laxatives to be sure that these are not taken inadvertently. An example is that not all Sennokot formulations contain Senna as an active ingredient. If you have any difficulties or concerns, you should contact our office immediately. If you note any additional difficulties, questions, or concerns, you should contact our office immediately @ [phone] and ask to be transferred to the General Surgery department. documented in this encounter [facility] 12-23-2022 History of Present illness Narrative FOLLOW UP VISIT - ENDOSCOPY NAME: Sara Allen [facility] NO.: [id number] DATE OF SERVICE: 12/23/2022 : 1965 REFERRING PHYSICIAN: Jackeline Blue PA-C Sara is a patient I am following for history of colon polyps and need for high-risk surveillance colonoscopy. Dr. Marcano performed lower endoscopy on 12/15/22. The patient was found to have significant looping of colon, fair bowel prep, hemorrhoids, and a small sigmoid colon polyp which was removed. Pathology demonstrated: FINAL DIAGNOSIS A. Sigmoid colon polyp, biopsy: - Tubular adenoma. G/phyllis 12/16/2022 The patient notes no complaints since the procedure. VITALS: Blood pressure 122/84, pulse 96, temperature 36.5 C (97.7 F), height 160 cm (5' 3), weight 92.1 kg (203 lb), last menstrual period 04/30/2010, SpO2 95 %. General: patient is alert, cooperative, pleasant and in no acute distress On examination, the abdomen is benign. Assessment IMPRESSION: s/p colonoscopy with polypectomy, small tubular adenoma. Fair bowel prep. Hemorrhoids, melanosis PLAN: The operative findings and pathology report were reviewed with the patient, and the patient has had the opportunity to ask questions and have questions answered. If the patient notes any problems or changes in bowel function, the patient should contact me immediately. Otherwise I recommend follow up endoscopy in 3-5 years based on polyp and prep. Consider MAC for next colonoscopy Counseled to limit use of plant-based laxatives Patient verbalized understanding of all above and agreed with the plan Diagnoses: (D36.9) Tubular adenoma (primary encounter diagnosis) (K63.89) Melanosis coli (K64.9) Hemorrhoids, unspecified hemorrhoid type (Z86.010) History of colonic polyps I spent a total of 25 minutes on the date of the service which included preparing to see the patient, [id number] patient care, completing clinical documentation, obtaining and/or reviewing separately obtained history, counseling and educating the patient/family/caregiver, independently interpreting results (not separately reported), and communicating results to the patient/family/caregiver. Eugenia Perez PA-C documented in this encounter [facility] 11-11-2022 History of Present illness Narrative 57 year old female with c/o here for 6 months follow up Essential hypertension (primary encounter diagnosis) Current meds: HCTZ 25mg daily Amlodipine 5mg daily Losartan 100mg daily Potassium Chloride 10mEq Patient is compliant with meds No Monitors bp at home: No. If yes, readings: Denies side effects: No. Chest pain: No. Dyspnea: No. Edema: No. Palpitations: No. Syncope: No. Headache: No. Dizziness: No. Last 3 Encounter BP Readings: Date: BP: 11/11/2022 124/86 07/29/2022 130/86 05/12/2022 130/88 Last 2 Encounter Wt Readings: Date: Wt: 11/11/2022 91.2 kg (201 lb) 07/29/2022 92 kg (202 lb 12.8 oz) Hyperlipidemia, mixed Current medication Atorvastatin 20mg daily Taking medication consistently Yes Observing low cholesterol high fiber diet: Muscle aches No Stomach complaints/ diarrhea No Last 2 Lipids: no new data Component Latest Ref Rng & Units 11/11/2021 05/12/2022 Cholesterol, Total <200 mg/dL 179 171 Triglyceride <150 mg/dL 197 (H) 182 (H) HDL Cholesterol >39 mg/dL 40 45 Non HDL Cholesterol <130 mg/dL 139 (H) 126 Fasting Time hrs 12 14 VLDL Cholesterol <30 mg/dL 39 (H) 36 (H) TC:HDL Ratio <5.10 4.48 3.80 LDL Cholesterol <100 mg/dL 100 (H) 90 LDL:HDL Ratio <2.54 2.50 2.00 Type 2 diabetes mellitus without complication, without long-term current use of insulin (hcc) Current medications: Metformin 500mg twice a day with meals Taking medication as directed consistently? Yes Medical Issues / Complications: hypertension and hyperlipidemia Checking blood sugars at home? Yes. Random blood sugars 120 or lower Watching diet? Yes for the most part, except cookies at bedtime. Physical Activity: Regular Hypoglycemic spells? No Any visual disturbance? No Chest pain? No New numbness, tingling or loss of sensation? No Any recent foot problems, sores or rashes? No Any recent or sudden weight loss? No Change in urination? No. If yes: Any recent illness? No Last eye exam: August. Last foot exam: due. Hemoglobin A1C (%) Date Value 05/12/2022 6.1 11/11/2021 6.0 02/18/2021 5.9 11/07/2020 6.3 ) CMP: Glucose 124 05/12/2022 BUN 17 05/12/2022 Creatinine 0.62 05/12/2022 Sodium 144 05/12/2022 Potassium 3.9 05/12/2022 Chloride 105 05/12/2022 CO2 24 05/12/2022 Protein, Total 7.5 05/12/2022 Albumin 4.6 05/12/2022 Calcium 9.7 05/12/2022 Alkaline Phosphatase 78 05/12/2022 Bilirubin, Total 0.2 05/12/2022 AST 22 05/12/2022 ALT 33 05/12/2022 Component Latest Ref Rng & Units 11/08/2019 11/11/2021 Creatinine, Ur Random (UCRR) 20.0 - 300.0 mg/dL 54.5 11.1 (L) Albumin, Urine Random mg/L <12.0 <12.0 Albumin/Creat Ratio Not calculated Component Latest Ref Rng & Units 03/06/2017 11/11/2021 WBC 3.70 - 11.00 k/uL 10.15 8.58 RBC 3.90 - 5.20 m/uL 4.97 5.06 Hemoglobin 11.5 - 15.5 g/dL 15.0 14.8 Hematocrit 36.0 - 46.0 % 46.3 (H) 45.9 MCV 80.0 - 100.0 fL 93.2 90.7 MCH 26.0 - 34.0 pg 30.2 29.2 MCHC 30.5 - 36.0 g/dL 32.4 32.2 RDW-CV 11.5 - 15.0 % 13.0 13.7 Platelet Count 150 - 400 k/uL 324 284 MPV 9.0 - 12.7 fL 10.7 10.3 Neut% % 68.6 70.2 Abs Neut (ANC) 1.45 - 7.50 k/uL 6.96 6.02 Lymph% % 20.1 18.4 Abs Lymph 1.00 - 4.00 k/uL 2.04 1.58 Page% % 7.1 7.2 Abs Page <0.87 k/uL 0.72 0.62 Eosin% % 3.6 3.0 Abs Eosin <0.46 k/uL 0.37 0.26 Baso% % 0.6 0.7 Abs Baso <0.11 k/uL 0.06 0.06 Immature Gran % % 0.5 IMMATURE GRANS (ABS) <0.10 k/uL 0.04 NRBC /100 WBC 0.0 Absolute nRBC <0.01 k/uL <0.01 <0.01 DTYPE Auto Nucleated Reds 0 /100 WBC 0.0 Diff Type Auto Diff Constitutional obesity Watching sugar and carbs Schizophreniform disorder, chronic condition (hcc) Bipolar i disorder (hcc) Current meds: Olanzapine 15mg daily Benztropine 1mg two times a day Change in medication No. Currently in counseling? Yes. Any Medication side effects? Yes. tremors Sleep disturbance? No. Loss of interest in usual pleasurable activities?No. Quilting. Sense of guilt, shame, low self esteem?No. Energy: good Trouble with concentration? No. Changes in appetite? No. Changes in weight? No Psychomotor retardation: No Suicidal thoughts: No Racing thoughts? No. Interpersonal/ family conflicts? No. Irritability? No. Vitamin D deficiency Vitamin D 3 1000u daily summer, 2000u daily winter HISTORIES FAMILY HISTORY Problem Relation Age of Onset Prostate Cancer Father Genetic Maternal Grandmother Cancer Maternal Grandmother lymphoma Diabetes Maternal Aunt Diabetes Maternal Aunt PAST MEDICAL HISTORY Diagnosis Date Bipolar I disorder, most recent episode (or current) unspecified DM (diabetes mellitus) (HCC) Dysmenorrhea Excessive or frequent menstruation Heavy periods HTN (hypertension) Hypercholesterolemia Irregular menstrual cycle Irregular periods Schizophreniform disorder, chronic condition (HCC) PAST SURGICAL HISTORY Procedure Laterality Date ANTERIOR COLPORRAPHY RPR CYSTOCELE W/CYSTO 05/22/11 anterior repair APPENDECTOMY 13y/o Was readmitted twice with infection after APPENDECTOMY COLONOSCOPY FLX DX W/COLLJ SPEC WHEN PFRMD 06/26/2016 Colonoscopy COLONOSCOPY FLX DX W/COLLJ SPEC WHEN PFRMD 09/28/2017 Colonoscopy COLONOSCOPY FLX DX W/COLLJ SPEC WHEN PFRMD 12/13/2019 Colonoscopy COLONOSCOPY FLX DX W/COLLJ SPEC WHEN PFRMD 12/13/2019 Colonoscopy DILATION & CURETTAGE DX&/THER NONOBSTETRIC Dilation & curettage LAPAROSCOPY TOT HYSTERECTOMY >250 G W/TUBE/OVAR 05/22/11 LAVH, bilateral salpingectomy VAGINAL HYSTERECTOMY Social History Tobacco Use Smoking status: Former Packs/day: 0.10 Years: 2.00 Total pack years: 0.20 Types: Cigarettes Smokeless tobacco: Current Types: Snuff Tobacco comments: one cigarette daily 35 years ago,no longer smoking now Vaping Use Vaping Use: Never used Substance Use Topics Alcohol use: No Comment: 3/year Drug use: No ACTIVE PROBLEM LIST Bipolar I Disorder (Hcc) Schizophreniform Disorder, Chronic Condition (Hcc) Anemia Htn (Hypertension) Constitutional Obesity Type 2 Diabetes Mellitus Without Complication, Without Long-Term Current Use of Insulin ([facility]ly [facility]) Current Outpatient Medications Medication Sig Dispense Refill benztropine (COGENTIN) 1 mg tablet Take 1 mg by mouth twice daily as needed. amLODIPine (NORVASC) 5 mg tablet Take 1 tablet by mouth once daily. 90 tablet 3 hydroCHLOROthiazide (HYDRODIURIL, ESIDRIX) 25 mg tablet Take 1 tablet by mouth once daily. 90 tablet 3 atorvastatin (LIPITOR) 20 mg tablet Take 1 tablet by mouth daily at bedtime. For cholesterol. 90 tablet 3 losartan (COZAAR) 100 mg tablet Take 1 tablet by mouth once daily. 90 tablet 3 potassium chloride (K-TAB) 10 mEq tablet Take 1 tablet by mouth twice daily. 180 tablet 3 metFORMIN (GLUCOPHAGE) 500 mg tablet Take 1 tablet by mouth twice daily with meals. . 180 tablet 3 Cholecalciferol, Vitamin D3, 25 mcg (1,000 unit) cap 1 caps daily during the summer, 2 caps daily during winter 180 capsule 3 benztropine (COGENTIN) 0.5 mg tablet Take 0.5 mg by mouth three times daily as needed. (Patient not taking: Reported on 07/29/2022) OLANZapine (ZYPREXA) 15 mg tablet Take 15 mg by mouth daily at bedtime. blood sugar diagnostic (BLOOD GLUCOSE TEST) test strip Test blood sugar(s1) 1 times daily. Dx: Type 2 DM - Controlled E11.9 Insulin: Yes 50 Strip 11 Lancets lancets Test blood sugar(s) 1 times daily. Dx: Type 2 DM - Controlled E11.9 Insulin: Yes 100 Each 11 No current facility-administered medications for this visit. BP CONTROLLED (<130/80) Never done MAMMOGRAM due on 05/09/2015 HBA1C due on 11/09/2022 URINE ALBUMIN:CREATININE RATIO due on 11/11/2022 DTAP,TDAP,TD(2 - Td or Tdap) due on 11/24/2022 COLORECTAL CANCER SCREENING due on 12/12/2022 EXAM: BP 124/86 Pulse 81 Resp 20 Wt 91.2 kg (201 lb) LMP 04/30/2010 SpO2 97% BMI 35.61 kg/m Pleasant obese adult woman in no acute distress. Alert and oriented all spheres. Normal affect and cognition. Speech normal. No deficits to learning or comprehension. Skin warm, dry, pink to lips and nailbeds. Normal turgor. Respirations regular and unlabored. HEENT: NCAT. No scleral icterus or conjunctival injection. TM's clear. Nose and oropharynx free from injection or lesion. Oral membranes moist and pink. No cervical lymph nodes. Thyroid non-tender, no masses, or enlargement. Carotids pulses 2+/4+ without bruits. No JVD with HOB at 30 degrees. Chest is normal shape. Lungs are clear to all billings with good air exchange through out. HRRR without murmur or gallop. No lifts, heaves, or rubs. Extrem: no clubbing or cyanosis. Edema: none. Extremities are warm and pink with prompt capillary refill. ASSESSMENT/PLAN: 1. Primary hypertension - ICD9: 401.9, ICD10: I10 (primary diagnosis) - Controlled - Continue current medications - Recommend home blood pressure monitoring, to bring results to next visit - Encouraged sodium restriction, DASH or Mediterranean diet - Recommend regular aerobic exercise 2. Type 2 diabetes mellitus without complication, without long-term current use of insulin (HCC) - ICD9: 250.00, ICD10: E11.9 - Controlled - Continue current medications - ALBUMIN/CREAT RATIO RND UR - HGB A1C 3. Constitutional obesity - ICD9: 278.00, ICD10: E66.8 Weight decreasing - Behavioral intervention Discussed incretin therapy:reviewed benfits, side effects. She is very hesitant about injections. Will ocnsider. 4. Anemia, unspecified type - ICD9: 285.9, ICD10: D64.9 Stable: recheck 5. Schizophreniform disorder, chronic condition (HCC) - ICD9: 295.42, ICD10: F20.81 Stable, follows with psych, doing well. 6. Bipolar I disorder (HCC) - ICD9: 296.7, ICD10: F31.9 - COMP METABOLIC PANEL 7. Essential hypertension - ICD9: 401.9, ICD10: I10 - Controlled - Continue current medications - Recommend home blood pressure monitoring, to bring results to next visit - Encouraged sodium restriction, DASH or Mediterranean diet - Recommend regular aerobic exercise - COMP METABOLIC PANEL - CBC + DIFF 8. Hyperlipidemia, mixed - ICD9: 272.2, ICD10: E78.2 - Controlled - Continue current medications - Counseled on healthy diet and regular exercise - LIPID PANEL BASIC - COMP METABOLIC PANEL 9. Serrated polyp of colon - ICD9: 211.3, ICD10: K63.5 Has colonoscopy scheduled 10. Extrapyramidal symptom - ICD9: 781.99, ICD10: R29.818 Controlled with current medication increase 11. Vitamin D deficiency - ICD9: 268.9, ICD10: E55.9 recheck - VITAMIN D 25 HYDROXY Urged to complete mammogram outstanding F/u 6 months Jackeline Blue PA-C documented in this encounter [facility] 07-29-2022 History of Present illness Narrative HISTORY AND PHYSICAL Sara Peoples 1965 REFERRING PHYSICIAN: Jackeline Blue PA-C CHIEF COMPLAINT: Consult (Colonoscopy consult) HPI: The patient is a 57 year old female referred for endoscopy. Sara notes no colon complaints. Patient denies any change in bowel habits, weight changes, blood in stools, black tarry stools or abdominal pain. Denies family history of colon issues. The patient notes no upper GI complaints. Sara has undergone prior endoscopy. Most recent colonoscopy 12/13/[address] Klein under conscious sedation with removal of three polyps, including a sessile serrated polyp. Repeat colonoscopy was recommended in 3 years. Per notes patient had some recall of procedure but not discomfort. PAST MEDICAL HISTORY Diagnosis Date Bipolar I disorder, most recent episode (or current) unspecified DM (diabetes mellitus) (HCC) Dysmenorrhea Excessive or frequent menstruation Heavy periods HTN (hypertension) Hypercholesterolemia Irregular menstrual cycle Irregular periods Schizophreniform disorder, chronic condition (HCC) PAST SURGICAL HISTORY Procedure Laterality Date ANTERIOR COLPORRAPHY RPR CYSTOCELE W/CYSTO 05/22/11 anterior repair APPENDECTOMY 13y/o Was readmitted twice with infection after APPENDECTOMY COLONOSCOPY FLX DX W/COLLJ SPEC WHEN PFRMD 06/26/2016 Colonoscopy COLONOSCOPY FLX DX W/COLLJ SPEC WHEN PFRMD 09/28/2017 Colonoscopy COLONOSCOPY FLX DX W/COLLJ SPEC WHEN PFRMD 12/13/2019 Colonoscopy COLONOSCOPY FLX DX W/COLLJ SPEC WHEN PFRMD 12/13/2019 Colonoscopy DILATION & CURETTAGE DX&/THER NONOBSTETRIC Dilation & curettage LAPAROSCOPY TOT HYSTERECTOMY >250 G W/TUBE/OVAR 05/22/11 LAVH, bilateral salpingectomy VAGINAL HYSTERECTOMY Current Outpatient Medications Medication Sig benztropine (COGENTIN) 1 mg tablet Take 1 mg by mouth twice daily as needed. amLODIPine (NORVASC) 5 mg tablet Take 1 tablet by mouth once daily. hydroCHLOROthiazide (HYDRODIURIL, ESIDRIX) 25 mg tablet Take 1 tablet by mouth once daily. atorvastatin (LIPITOR) 20 mg tablet Take 1 tablet by mouth daily at bedtime. For cholesterol. losartan (COZAAR) 100 mg tablet Take 1 tablet by mouth once daily. potassium chloride (K-TAB) 10 mEq tablet Take 1 tablet by mouth twice daily. metFORMIN (GLUCOPHAGE) 500 mg tablet Take 1 tablet by mouth twice daily with meals. . Cholecalciferol, Vitamin D3, 25 mcg (1,000 unit) cap 1 caps daily during the summer, 2 caps daily during winter OLANZapine (ZYPREXA) 15 mg tablet Take 15 mg by mouth daily at bedtime. blood sugar diagnostic (BLOOD GLUCOSE TEST) test strip Test blood sugar(s1) 1 times daily. Dx: Type 2 DM - Controlled E11.9 Insulin: Yes Lancets lancets Test blood sugar(s) 1 times daily. Dx: Type 2 DM - Controlled E11.9 Insulin: Yes benztropine (COGENTIN) 0.5 mg tablet Take 0.5 mg by mouth three times daily as needed. (Patient not taking: Reported on 07/29/2022) No current facility-administered medications for this visit. ALLERGIES: Patient has no known allergies. PERSONAL HISTORY: Social History Tobacco Use Smoking status: Former Packs/day: 0.10 Years: 2.00 Pack years: 0.20 Types: Cigarettes Smokeless tobacco: Current Types: Snuff Tobacco comments: one cigarette daily 35 years ago,no longer smoking now Vaping Use Vaping Use: Never used Substance Use Topics Alcohol use: No Comment: 3/year Drug use: No FAMILY HISTORY: FAMILY HISTORY Problem Relation Age of Onset Prostate Cancer Father Genetic Maternal Grandmother Cancer Maternal Grandmother lymphoma Diabetes Maternal Aunt Diabetes Maternal Aunt REVIEW OF SYMPTOMS: The review of systems data was entered by the nurse and reviewed by or Nursing Notes: Alicia Bay RN 07/29/2022 8:08 AM Signed REVIEW OF SYSTEMS: General: The patient denies fatigue, denies weight loss, denies weight gain, denies feeling hot, and denies feelings of cold. Eyes: The patient denies glaucoma, denies eye injury/surgery, wears glasses or contacts. Ear/Nose/Throat: The patient denies allergies, denies hayfever, denies ear infections, and denies bloody noses. Cardiovascular: The patient denies chest pain, denies heart disease, NOTES high blood pressure,denies cardiac stent, denies prior heart attack, denies irregular heart beat, NOTES high cholesterol, denies poor circulation, denies heart failure, other cardiac issues, denies claudication, denies cold feet, denies peripheral arterial stent. Respiratory: The patient denies tuberculosis, denies pneumonia, denies frequent cough, denies pulmonary embolism, denies shortness of breath, and denies coughing up blood. Gastrointestinal: The patient denies difficulty swallowing, denies acid reflux, denies ulcers, denies vomiting, denies jaundice/hepatitis, denies gallbladder problems, denies black or tarry stools, denies hemorrhoids, denies bleeding from rectum, denies diverticulitis, denies constipation, denies diarrhea, denies loss of stool control, and denies hernias. Kidney/Bladder: The patient denies kidney stones, denies urine infections, and denies bloody urine. Skin: The patient denies a history of skin cancer, denies bleeding/changing moles, and denies a history of skin rash. Neurologic: The patient denies a history of epilepsy/convulsions, denies headaches, denies head/spinal injuries, and denies stroke/TIA. Psychiatric: The patient NOTES psychiatric medications, denies depression, and denies voices, denies substance abuse. Endocrine: The patient denies thyroid disorders, NOTES diabetes, and denies hormonal problems. Hematologic: The patient denies a history of bruising, denies bleeding, and denies anemia, denies blood clots. Infections: The patient denies a history of measles and mumps, denies rheumatic fever, and denies sexually transmitted diseases. Musculoskeletal: The patient denies back pain/injury, denies back problems, denies sciatica, denies knee/foot trouble, denies arthritis, or denies gout. When was patient's last Mammogram screening? Unknown Last Colonoscopy: 2019 Alicia Bay RN I have confirmed and edited as necessary, the PFSH and ROS obtained by others. Eugenia Perez PA-C PHYSICAL EXAMINATION: General: The patient is 57 year old female, well nourished, well hydrated in no acute distress. The patient is oriented to time, place, and person. VITALS: Blood pressure 130/86, pulse 103, temperature 36.6 C (97.9 F), height 160 cm (5' 3), weight 92 kg (202 lb 12.8 oz), last menstrual period 04/30/2010, SpO2 96 %. Body mass index is 35.92 kg/m . HEENT: Normal cephalic, ataumatic, pupils are equally round, sclera are anicteric, mucous membranes are moist, oropharynx is clear. Neck has no masses, asymmetry or lymphadenopathy. Respiratory: Clear to auscultation and percussion. Normal respiratory excursion and pattern. Cardiac: Examination is regular rate and rhythm. Normal S1/S2 Abdominal exam: Soft, nontender, with no palpable masses. No hepatosplenomegaly. No palpable hernias. Extremities: no clubbing, cyanosis or edema. No adenopathy. LABORATORY VALUES: As Noted RADIOLOGIC STUDIES: As Noted Assessment IMPRESSION: history of colon polyps, encounter for surveillance colonoscopy PLAN: I have reviewed my findings with the surgeon. Will plan for lower endoscopy. We discussed the risks and benefits of the planned endoscopy. I have informed the patient that complications can occur including failure to complete the endoscopy and perforation. The patient had the opportunity to ask questions concerning the planned endoscopy. My staff has also explained the procedure to the patient in understandable terms and has given the patient printed material concerning the procedure. The patient freely consents to surgery. The patient was offered a surgery/procedure at a [facility] facility. I have counseled the patient regarding the risk of exposure to and/or potential harm posed by the COVID-19 virus with having a surgery/procedure at this time versus the risk of delaying the surgery/procedure. It is not possible to know either the risk of delaying the surgery or procedure or chance of getting an infection with perfect accuracy, but a joint decision was made between the patient and myself to proceed at this time with endoscopy. I plan to use Golytely bowel preparation I have explained to the patient the difference between IV conscious sedation and MAC anesthesia - and I have offered either, according to the patient's wishes. I have explained that with IV conscious sedation there is no anesthesia provider available and therefore there is a limitation of the amount of IV medications that can be given and that the patient may wake up in the middle of the procedure and/or experience pain/discomfort during the procedure. Further discussion was done and the patient was given the opportunity to ask questions and all questions were answered. The patient chooses IV conscious sedation Diagnoses: (Z86.010) History of colonic polyps (primary encounter diagnosis) (K63.5) Serrated polyp of colon (Z12.11) Encounter for screening for malignant neoplasm of colon Consultation requested by Dhaval Blue PA-C for an opinion regarding screening colonoscopy. My final recommendations will be communicated back to the requesting physician by way of shared Medical record or letter to requesting physician via US mail. Eugenia Perez PA-C documented in this encounter [facility] 07-29-2022 Nurse Note REVIEW OF SYSTEMS: General: The patient denies fatigue, denies weight loss, denies weight gain, denies feeling hot, and denies feelings of cold. Eyes: The patient denies glaucoma, denies eye injury/surgery, wears glasses or contacts. Ear/Nose/Throat: The patient denies allergies, denies hayfever, denies ear infections, and denies bloody noses. Cardiovascular: The patient denies chest pain, denies heart disease, NOTES high blood pressure,denies cardiac stent, denies prior heart attack, denies irregular heart beat, NOTES high cholesterol, denies poor circulation, denies heart failure, other cardiac issues, denies claudication, denies cold feet, denies peripheral arterial stent. Respiratory: The patient denies tuberculosis, denies pneumonia, denies frequent cough, denies pulmonary embolism, denies shortness of breath, and denies coughing up blood. Gastrointestinal: The patient denies difficulty swallowing, denies acid reflux, denies ulcers, denies vomiting, denies jaundice/hepatitis, denies gallbladder problems, denies black or tarry stools, denies hemorrhoids, denies bleeding from rectum, denies diverticulitis, denies constipation, denies diarrhea, denies loss of stool control, and denies hernias. Kidney/Bladder: The patient denies kidney stones, denies urine infections, and denies bloody urine. Skin: The patient denies a history of skin cancer, denies bleeding/changing moles, and denies a history of skin rash. Neurologic: The patient denies a history of epilepsy/convulsions, denies headaches, denies head/spinal injuries, and denies stroke/TIA. Psychiatric: The patient NOTES psychiatric medications, denies depression, and denies voices, denies substance abuse. Endocrine: The patient denies thyroid disorders, NOTES diabetes, and denies hormonal problems. Hematologic: The patient denies a history of bruising, denies bleeding, and denies anemia, denies blood clots. Infections: The patient denies a history of measles and mumps, denies rheumatic fever, and denies sexually transmitted diseases. Musculoskeletal: The patient denies back pain/injury, denies back problems, denies sciatica, denies knee/foot trouble, denies arthritis, or denies gout. When was patient's last Mammogram screening? Unknown Last Colonoscopy: 2019 Alicia Bay RN documented in this encounter [facility] 06-26-2022 Miscellaneous Notes Patient has been identified by name and date of : Yes Requested Prescriptions Pending Prescriptions Disp Refills amLODIPine (NORVASC) 5 mg tablet 90 tablet 3 Sig: Take 1 tablet by mouth once daily. hydroCHLOROthiazide (HYDRODIURIL, ESIDRIX) 25 mg tablet 90 tablet 3 Sig: Take 1 tablet by mouth once daily. atorvastatin (LIPITOR) 20 mg tablet 90 tablet 3 Sig: Take 1 tablet by mouth daily at bedtime. For cholesterol. CRISTY-05/12/22 Labs-05/12/22 NOV-11/11/22 med filled 07/12/21 RX INSTRUCTIONS: Patient aware RX will be sent to pharmacy. No need to notify patient. Catherine Ramsey documented in this encounter [facility] 05-12-2022 History of Present illness Narrative 57 year old female with c/o here for 6 month f/u: no concerns Essential hypertension (primary encounter diagnosis) Current meds: HCTZ 25mg daily Amlodipine 5mg daily Patient is compliant with meds No Monitors bp at home: No. If yes, readings: Denies side effects: No. Chest pain: No. Dyspnea: No. Edema: No. Palpitations: No. Syncope: No. Headache: No. Dizziness: No. Last 3 Encounter BP Readings: Date: BP: 11/13/2020 130/82 05/15/2020 126/70 11/16/2019 126/76 Last 2 Encounter Wt Readings: Date: Wt: 11/13/2020 92.1 kg (203 lb) 05/15/2020 87.1 kg (192 lb) Hyperlipidemia, mixed Current medication Atorvastatin 20mg daily Taking medication consistently Yes Observing low cholesterol high fiber diet: Muscle aches No Stomach complaints/ diarrhea No Last 2 Lipids: Component Latest Ref Rng & Units 11/07/2020 11/13/2020 Cholesterol, Total <200 mg/dL 190 197 Triglyceride <150 mg/dL 173 (H) 129 HDL Cholesterol >39 mg/dL 47 49 LDL Cholesterol <100 mg/dL 108 (H) 122 (H) Non HDL Cholesterol <130 mg/dL 143 (H) 148 (H) Fasting Time hrs 12 12 VLDL Cholesterol <30 mg/dL 35 (H) 26 TC:HDL Ratio <5.10 4.04 4.02 LDL:HDL Ratio <2.54 2.30 2.49 Type 2 diabetes mellitus without complication, without long-term current use of insulin (hcc) Current medications: Metformin 500mg twice a day with meals Taking medication as directed consistently? Yes Medical Issues / Complications: hypertension and hyperlipidemia Checking blood sugars at home? Yes. Random blood sugars Watching diet? Yes for the most part, except cookies at bedtime. Physical Activity: Regular Hypoglycemic spells? No Any visual disturbance? No Chest pain? No New numbness, tingling or loss of sensation? No Any recent foot problems, sores or rashes? No Any recent or sudden weight loss? No Change in urination? No. If yes: Any recent illness? No Last eye exam: August. Last foot exam: due. HBA1C: Hemoglobin A1C (%) Date Value 11/11/2021 6.0 02/18/2021 5.9 11/07/2020 6.3 ) CMP: Glucose 113 11/11/2021 BUN 20 11/11/2021 Creatinine 0.65 11/11/2021 Sodium 143 11/11/2021 Potassium 3.7 11/11/2021 Chloride 104 11/11/2021 CO2 25 11/11/2021 Protein, Total 7.5 11/11/2021 Albumin 4.6 11/11/2021 Calcium 10.0 11/11/2021 Alkaline Phosphatase 69 11/11/2021 Bilirubin, Total 0.3 11/11/2021 AST 23 11/11/2021 ALT 29 11/11/2021 Last 2 Encounter Wt Readings: Date: Wt: 11/11/2021 90.7 kg (200 lb) 11/13/2020 92.1 kg (203 lb) Constitutional obesity Not following diet. Vitals 05/15/2020 05/15/2020 11/13/2020 11/11/2021 WEIGHT in POUNDS 192 lb 203 lb 200 lb WEIGHT in KILOGRAMS 87.091 kg 92.08 kg 90.719 kg Schizophreniform disorder, chronic condition (hcc) Bipolar i disorder (hcc) Current meds: Olanzapine 15mg daily Benztropine 0.5mg three times a day Change in medication No. Currently in counseling? Yes. Any Medication side effects? Yes. trmors Sleep disturbance? No. Loss of interest in usual pleasurable activities?No. Quilting. Sense of guilt, shame, low self esteem?No. Energy: good Trouble with concentration? No. Changes in appetite? No. Changes in weight? No Psychomotor retardation: No Suicidal thoughts: No Racing thoughts? No. Interpersonal/ family conflicts? No. Irritability? No. HISTORIES FAMILY HISTORY Problem Relation Age of Onset Prostate Cancer Father Genetic Maternal Grandmother Cancer Maternal Grandmother lymphoma Diabetes Maternal Aunt Diabetes Maternal Aunt PAST MEDICAL HISTORY Diagnosis Date Bipolar I disorder, most recent episode (or current) unspecified DM (diabetes mellitus) (HCC) Dysmenorrhea Excessive or frequent menstruation Heavy periods HTN (hypertension) Hypercholesterolemia Irregular menstrual cycle Irregular periods Schizophreniform disorder, chronic condition (HCC) PAST SURGICAL HISTORY Procedure Laterality Date ANTERIOR COLPORRAPHY RPR CYSTOCELE W/CYSTO 05/22/11 anterior repair APPENDECTOMY 13y/o Was readmitted twice with infection after APPENDECTOMY COLONOSCOPY FLX DX W/COLLJ SPEC WHEN PFRMD 06/26/2016 Colonoscopy COLONOSCOPY FLX DX W/COLLJ SPEC WHEN PFRMD 09/28/2017 Colonoscopy COLONOSCOPY FLX DX W/COLLJ SPEC WHEN PFRMD 12/13/2019 Colonoscopy COLONOSCOPY FLX DX W/COLLJ SPEC WHEN PFRMD 12/13/2019 Colonoscopy DILATION & CURETTAGE DX&/THER NONOBSTETRIC Dilation & curettage LAPAROSCOPY TOT HYSTERECTOMY >250 G W/TUBE/OVAR 05/22/11 LAVH, bilateral salpingectomy VAGINAL HYSTERECTOMY Social History Tobacco Use Smoking status: Former Packs/day: 0.10 Years: 2.00 Pack years: 0.20 Types: Cigarettes Smokeless tobacco: Current Types: Snuff Tobacco comments: one cigarette daily 35 years ago,no longer smoking now Substance Use Topics Alcohol use: No Comment: 3/year Drug use: No ACTIVE PROBLEM LIST Bipolar I Disorder (Hcc) Schizophreniform Disorder, Chronic Condition (Hcc) Anemia Htn (Hypertension) Constitutional Obesity Type 2 Diabetes Mellitus Without Complication, Without Long-Term Current Use of Insulin (Hcc) Current Outpatient Medications Medication Sig Dispense Refill benztropine (COGENTIN) 0.5 mg tablet Take 0.5 mg by mouth three times daily as needed. benztropine (COGENTIN) 0.5 mg tablet 0.5mg 2 in the morning and 1 in afternoon hydroCHLOROthiazide (HYDRODIURIL, ESIDRIX) 25 mg tablet Take 1 tablet by mouth once daily. 90 tablet 3 atorvastatin (LIPITOR) 20 mg tablet Take 1 tablet by mouth daily at bedtime. For cholesterol. 90 tablet 3 amLODIPine (NORVASC) 5 mg tablet Take 1 tablet by mouth once daily. 90 tablet 3 losartan (COZAAR) 100 mg tablet Take 1 tablet by mouth once daily. 90 tablet 3 potassium chloride (K-TAB) 10 mEq tablet Take 1 tablet by mouth twice daily. 180 tablet 3 metFORMIN (GLUCOPHAGE) 500 mg tablet Take 1 tablet by mouth twice daily with meals. . 180 tablet 3 OLANZapine (ZYPREXA) 15 mg tablet Take 15 mg by mouth daily at bedtime. blood sugar diagnostic (BLOOD GLUCOSE TEST) test strip Test blood sugar(s1) 1 times daily. Dx: Type 2 DM - Controlled E11.9 Insulin: Yes 50 Strip 11 Lancets lancets Test blood sugar(s) 1 times daily. Dx: Type 2 DM - Controlled E11.9 Insulin: Yes 100 Each 11 No current facility-administered medications for this visit. HEPATITIS B(1 of 3 - 3-dose series) Never done COVID-19 VACCINE(1) Never done PNEUMOCOCCAL(1 - PCV) Never done MAMMOGRAM due on 05/09/2015 DIABETIC FOOT EXAM due on 11/13/2021 INFLUENZA(1) due on 12/26/2021 DEPRESSION ASSESSMENT Never done EXAM: BP 130/88 Pulse 96 Wt 93 kg (205 lb) LMP 04/08/2011 SpO2 95% BMI 36.32 kg/m Pleasant overweight adult woman in no acute distress. Alert and oriented all spheres. Normal affect and cognition. Speech normal. No deficits to learning or comprehension. Skin warm, dry, pink to lips and nailbeds. Normal turgor. Respirations regular and unlabored. HEENT: NCAT. No scleral icterus or conjunctival injection. TM's clear. Nose and oropharynx free from injection or lesion. Oral membranes moist and pink. No cervical lymph nodes. Thyroid non-tender, no masses, or enlargement. Carotids pulses 2+/4+ without bruits. No JVD with HOB at 30 degrees. Chest is normal shape. Lungs are clear to all billings with good air exchange through out. HRRR without murmur or gallop. No lifts, heaves, or rubs. Extrem: no clubbing, cyanosis, edema. Distal pulses 2+/4, prompt capillary refill. Feet:Shoes and socks removed, Are you having foot pain none, No deformities, ulcers, calluses, normal distal pulses, and sensitive to 10 gm monofilament ASSESSMENT/PLAN: 1. Essential hypertension - ICD9: 401.9, ICD10: I10 (primary diagnosis) - good control - Continue current medication(s) - Recommended regular aerobic exercise. - Recommend home blood pressure monitoring, to bring results in on next visit - Discussed need and benefit for weight loss. - Goal of BP <130/80 - LOSARTAN 100 MG TABLET 2. Hyperlipidemia, mixed - ICD9: 272.2, ICD10: E78.2 - good control - Continue current medication. 3. Type 2 diabetes mellitus without complication, without long-term current use of insulin (HCC) - ICD9: 250.00, ICD10: E11.9 Controlled. - Continue current medications - POTASSIUM CHLORIDE ER 10 MEQ TABLET,EXTENDED RELEASE - METFORMIN 500 MG TABLET 4. Vitamin D deficiency - ICD9: 268.9, ICD10: E55.9 recheck - VITAMIN D 25 HYDROXY 5. Serrated polyp of colon - ICD9: 211.3, ICD10: K63.5 Due for recheck in November- will schedule consult - CONSULT TO GENERAL SURGERY F/u 6 months Jackeline Blue PA-C documented in this encounter [facility] 12-17-2021 Miscellaneous Notes Patient was made aware of the results. Patient verbalizes understanding. Glenys Masterson Ma Can please let patient know that I receive her labs. Her vitamin D level is still elevated, but is coming down. Please continue to hold the vitamin D supplements. Venessa Honeycutt APRN.DARIO documented in this encounter [facility] 11-11-2021 History of Present illness Narrative 56 year old female with c/o here for follow up. No current ocncerns. Essential hypertension (primary encounter diagnosis) HTN: Current meds: HCTZ 25mg daily Amlodipine 5mg daily Patient is compliant with meds No Monitors bp at home: No. If yes, readings: Denies side effects: No. Chest pain: No. Dyspnea: No. Edema: No. Palpitations: No. Syncope: No. Headache: No. Dizziness: No. Last 3 Encounter BP Readings: Date: BP: 11/13/2020 130/82 05/15/2020 126/70 11/16/2019 126/76 Last 2 Encounter Wt Readings: Date: Wt: 11/13/2020 92.1 kg (203 lb) 05/15/2020 87.1 kg (192 lb) Hyperlipidemia, mixed Hyperlipidemia: Current medication Atorvastatin 20mg daily Taking medication consistently Yes Observing low cholesterol high fiber diet No Muscle aches No Stomach complaints/ diarrhea No Last 2 Lipids: Component Latest Ref Rng & Units 11/07/2020 11/13/2020 Cholesterol, Total <200 mg/dL 190 197 Triglyceride <150 mg/dL 173 (H) 129 HDL Cholesterol >39 mg/dL 47 49 LDL Cholesterol <100 mg/dL 108 (H) 122 (H) Non HDL Cholesterol <130 mg/dL 143 (H) 148 (H) Fasting Time hrs 12 12 VLDL Cholesterol <30 mg/dL 35 (H) 26 TC:HDL Ratio <5.10 4.04 4.02 LDL:HDL Ratio <2.54 2.30 2.49 Type 2 diabetes mellitus without complication, without long-term current use of insulin (hcc) Diabetes Mellitus Type 2: Current medications: Metformin 500mg twice a day with meals Taking medication as directed consistently? Yes Medical Issues / Complications: hypertension and hyperlipidemia Checking blood sugars at home? Yes. Random blood sugars Watching diet? Yes Physical Activity: Regular Hypoglycemic spells? No Any visual disturbance? No Chest pain? No New numbness, tingling or loss of sensation? No Any recent foot problems, sores or rashes? No Any recent or sudden weight loss? No Change in urination? No. If yes: Any recent illness? No Last eye exam: August. Last foot exam: due. HBA1C: Hemoglobin A1C (%) Date Value 02/18/2021 5.9 11/07/2020 6.3 ) CMP: Glucose 119 11/13/2020 BUN 15 11/13/2020 Creatinine 0.61 11/13/2020 Sodium 140 11/13/2020 Potassium 3.7 11/13/2020 Chloride 100 11/13/2020 CO2 25 11/13/2020 Protein, Total 8.1 11/13/2020 Albumin 4.8 11/13/2020 Calcium 10.2 11/13/2020 Alkaline Phosphatase 70 11/13/2020 Bilirubin, Total 0.4 11/13/2020 AST 25 11/13/2020 ALT 30 11/13/2020 Last 2 Encounter Wt Readings: Date: Wt: 11/13/2020 92.1 kg (203 lb) 05/15/2020 87.1 kg (192 lb) Constitutional obesity Not following diet. Vitals 05/15/2020 05/15/2020 11/13/2020 11/11/2021 WEIGHT in POUNDS 192 lb 203 lb 200 lb WEIGHT in KILOGRAMS 87.091 kg 92.08 kg 90.719 kg Schizophreniform disorder, chronic condition (hcc) Bipolar i disorder (hcc) Current meds: Olanzapine 15mg daily Benztropine 0.5mg three times a day Change in medication No. Currently in counseling? Yes. Any Medication side effects? Yes. trmors Sleep disturbance? No. Loss of interest in usual pleasurable activities?No. Quilting. Sense of guilt, shame, low self esteem?No. Energy: good Trouble with concentration? No. Changes in appetite? No. Changes in weight? No Psychomotor retardation: No Suicidal thoughts: No Racing thoughts? No. Interpersonal/ family conflicts? No. Irritability? No. PHQ-9 11/13/2020 11/11/2021 Score 4 6 HAIDER - 7 SCORES 11/11/2021 HAIDER-7 Score 1 HISTORIES FAMILY HISTORY Problem Relation Age of Onset Prostate Cancer Father Genetic Maternal Grandmother Cancer Maternal Grandmother lymphoma Diabetes Maternal Aunt Diabetes Maternal Aunt PAST MEDICAL HISTORY Diagnosis Date Bipolar I disorder, most recent episode (or current) unspecified DM (diabetes mellitus) (HCC) Dysmenorrhea Excessive or frequent menstruation Heavy periods HTN (hypertension) Hypercholesterolemia Irregular menstrual cycle Irregular periods Schizophreniform disorder, chronic condition (HCC) PAST SURGICAL HISTORY Procedure Laterality Date ANTER COLPORRHAPHY,BLAD/VAGINA 05/22/11 anterior repair APPENDECTOMY 13y/o Was readmitted twice with infection after APPENDECTOMY COLONOSCOP W/ OR W/O [facility] SPE[facility] 06/26/2016 Colonoscopy COLONOSCOP W/ OR W/O [facility] 09/28/2017 Colonoscopy COLONOSCOP W/ OR W/O [facility] 12/13/2019 Colonoscopy COLONOSCOP W/ OR W/O [facility] 12/13/2019 Colonoscopy D&C, DIAG AND/OR THERAPEUTIC Dilation & curettage TLH W/T/O UTERUS OVER 250 G 05/22/11 LAVH, bilateral salpingectomy VAGINAL HYSTERECTOMY Social History Tobacco Use Smoking status: Former Smoker Packs/day: 0.10 Years: 2.00 Pack years: 0.20 Types: Cigarettes Smokeless tobacco: Current User Types: Snuff Tobacco comment: one cigarette daily 35 years ago,no longer smoking now Substance Use Topics Alcohol use: No Comment: 3/year Drug use: No ACTIVE PROBLEM LIST Bipolar I Disorder (Hcc) Schizophreniform Disorder, Chronic Condition (Hcc) Anemia Htn (Hypertension) Constitutional Obesity Type 2 Diabetes Mellitus Without Complication, Without Long-Term Current Use of Insulin (Formerly [facility]) Current Outpatient Medications Medication Sig Dispense Refill hydroCHLOROthiazide (HYDRODIURIL, ESIDRIX) 25 mg tablet Take 1 tablet by mouth once daily. 90 tablet 3 atorvastatin (LIPITOR) 20 mg tablet Take 1 tablet by mouth daily at bedtime. For cholesterol. 90 tablet 3 amLODIPine (NORVASC) 5 mg tablet Take 1 tablet by mouth once daily. 90 tablet 3 losartan (COZAAR) 100 mg tablet Take 1 tablet by mouth once daily. 90 tablet 3 potassium chloride (K-TAB) 10 mEq tablet Take 1 tablet by mouth twice daily. 180 tablet 3 metFORMIN (GLUCOPHAGE) 500 mg tablet Take 1 tablet by mouth twice daily with meals. . 180 tablet 3 OLANZapine (ZYPREXA) 15 mg tablet Take 15 mg by mouth daily at bedtime. blood sugar diagnostic (BLOOD GLUCOSE TEST) test strip Test blood sugar(s1) 1 times daily. Dx: Type 2 DM - Controlled E11.9 Insulin: Yes 50 Strip 11 Lancets lancets Test blood sugar(s) 1 times daily. Dx: Type 2 DM - Controlled E11.9 Insulin: Yes 100 Each 11 No current facility-administered medications for this visit. PNEUMOCOCCAL(1 - PCV) Never done BP CONTROLLED (<130/80) Never done HEPATITIS B(1 of 3 - Risk 3-dose series) Never done MAMMOGRAM due on 05/09/2015 HBA1C due on 08/19/2021 URINE ALBUMIN:CREATININE RATIO due on 11/13/2021 LDL CHOLESTEROL due on 11/13/2021 DIABETIC FOOT EXAM due on 11/13/2021 REVIEW OF SYSTEMS HEENT: Negative for frequent or significant headaches, No changes in hearing or vision, no nose bleeds or other nasal problems NECK: Negative for lumps, goiter, pain and significant neck swelling : No history of dysuria, frequency or incontinence MUSCULOSKELETAL: Negative for joint pain or swelling, back pain or muscle pain SKIN: Negative for lesions, rash, and itching HEMATOLOGY/LYMPHOLOGY: Negative for prolonged bleeding, bruising easily or swollen nodes EXAM: BP 128/76 Pulse 89 Resp 18 Ht 160 cm (5' 2.99) Wt 90.7 kg (200 lb) LMP 04/08/2011 SpO2 96% BMI 35.44 kg/m Pleasant obese adult woman in no acute distress. Alert and oriented all spheres. Normal affect and cognition. Speech normal. No deficits to learning or comprehension. Skin warm, dry, pink to lips and nailbeds. Normal turgor. Respirations regular and unlabored. HEENT: NCAT. No scleral icterus or conjunctival injection. TM's clear. Nose and oropharynx free from injection or lesion. Oral membranes moist and pink. No cervical lymph nodes. Thyroid non-tender, no masses, or enlargement. Carotids pulses 2+/4+ without bruits. Chest is normal shape. Lungs are clear to all billings with good air exchange through out. HRRR without murmur or gallop. No lifts, heaves, or rubs. Abdomen: active bowel sounds throughout, soft, nontender, no masses or organomegaly. No CVAT. Extrem: no clubbing or cyanosis. Edema: none. Extremities are warm and pink with prompt capillary refill. ASSESSMENT/PLAN: 1. Essential hypertension - ICD9: 401.9, ICD10: I10 (primary diagnosis) - good control - Continue current medication(s) - Recommended regular aerobic exercise. - Recommend home blood pressure monitoring, to bring results in on next visit - Goal of BP <130/80 - ALBUMIN/CREAT RATIO RND UR - LIPID PANEL BASIC - HGB A1C - CBC + DIFF - COMP METABOLIC PANEL 2. Hyperlipidemia, mixed - ICD9: 272.2, ICD10: E78.2 - good control - Continue current medication. - Encouraged following a low fat, low cholesterol diet. - ALBUMIN/CREAT RATIO RND UR - LIPID PANEL BASIC - HGB A1C - CBC + DIFF - COMP METABOLIC PANEL 3. Type 2 diabetes mellitus without complication, without long-term current use of insulin (HCC) - ICD9: 250.00, ICD10: E11.9 Controlled. - Continue current medications - ALBUMIN/CREAT RATIO RND UR - LIPID PANEL BASIC - HGB A1C - CBC + DIFF - COMP METABOLIC PANEL 4. Constitutional obesity - ICD9: 278.00, ICD10: E66.8 Stable - Behavioral intervention - ALBUMIN/CREAT RATIO RND UR - LIPID PANEL BASIC - HGB A1C - CBC + DIFF - COMP METABOLIC PANEL 5. 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 Bipolar I disorder (HCC) - ICD9: 296.7, ICD10: F31.9 stable - ALBUMIN/CREAT RATIO RND UR - LIPID PANEL BASIC - HGB A1C - CBC + DIFF - COMP METABOLIC PANEL 7. Extrapyramidal symptom - ICD9: 781.99, ICD10: R29.818 Controlled with medicaiton Jackeline Blue PA-C documented in this encounter [facility] 05-15-2011 History of Past i llness Narrative Problem Noted Date Resolved Date Fibroid 05/15/2011 07/03/2011 Dysmenorrhea 05/05/2011 07/03/2011 Irregular menstrual cycle 04/16/20112011 Excessive or frequent menstruation 04/16/2011 07/03/2011 documented as of this encounter (statuses as of 10/21/2021) [facility]2012 History of Past illness Narrative* Problem Noted Date Resolved Date Fibroid 05/15/2011 07/03/2011 Dysmenorrhea 05/05/2011 07/03/2011 Irregular menstrual cycle 04/16/20112011 Excessive or frequent menstruation 04/16/2011 07/03/2011 documented as of this encounter (statuses as of 11/11/2021) [facility] History of Past illness Narrative* Problem Noted Date Resolved Date Fibroid 05/15/2011 07/03/2011 Dysmenorrhea 05/05/2011 07/03/2011 Irregular menstrual cycle 04/16/20112011 Excessive or frequent menstruation 04/16/2011 07/03/2011 documented as of this encounter (statuses as of 12/17/2021) [facility] History of Past illness Narrative* Problem Noted Date Resolved Date Fibroid 05/15/2011 07/03/2011 Dysmenorrhea 05/05/2011 07/03/2011 Irregular menstrual cycle 04/16/20112011 Excessive or frequent menstruation 04/16/2011 07/03/2011 documented as of this encounter (statuses as of 05/12/2022) [address]19-2012 History of Past illness Narrative* Problem Noted Date Resolved Date Fibroid 05/15/2011 07/03/2011 Dysmenorrhea 05/05/2011 07/03/2011 Irregular menstrual cycle 04/16/20112011 Excessive or frequent menstruation 04/16/2011 07/03/2011 documented as of this encounter (statuses as of 06/26/2022) [address]19-2012 History of Past illness Narrative* Problem Noted Date Resolved Date Fibroid 05/15/2011 07/03/2011 Dysmenorrhea 05/05/2011 07/03/2011 Irregular menstrual cycle 04/16/20112011 Excessive or frequent menstruation 04/16/2011 07/03/2011 documented as of this encounter (statuses as of 07/29/2022) [address]19-2012 History of Past illness Narrative* Problem Noted Date Resolved Date Fibroid 05/15/2011 07/03/2011 Dysmenorrhea 05/05/2011 07/03/2011 Irregular menstrual cycle 04/16/20112011 Excessive or frequent menstruation 04/16/2011 07/03/2011 documented as of this encounter (statuses as of 09/29/2022) [address]19-2012 History of Past illness Narrative* Problem Noted Date Diagnosed Date Resolved Date Fibroid 05/15/2011 07/03/2011 Dysmenorrhea 05/05/2011 07/03/2011 Irregular menstrual cycle 04/16/2011 Excessive or frequent menstruation 04/16/2011 07/03/2011 documented as of this encounter (statuses as of 11/11/2022) [facility] History of Past illness Narrative* Problem Noted Date Diagnosed Date Resolved Date Fibroid 05/15/2011 07/03/2011 Dysmenorrhea 05/05/2011 07/03/2011 Irregular menstrual cycle 04/16/2011 Excessive or frequent menstruation 04/16/2011 07/03/2011 documented as of this encounter (statuses as of 12/30/2022) [facility] History of Past illness Narrative* Problem Noted Date Diagnosed Date Resolved Date Fibroid 05/15/2011 07/03/2011 Dysmenorrhea 05/05/2011 07/03/2011 Irregular menstrual cycle 04/16/2011 Excessive or frequent menstruation 04/16/2011 07/03/2011 documented as of this encounter (statuses as of 06/24/2023) [address]19-2012 History of Past illness Narrative* Problem Noted Date Diagnosed Date Resolved Date Fibroid 05/15/2011 07/03/2011 Dysmenorrhea 05/05/2011 07/03/2011 Irregular menstrual cycle 04/16/2011 Excessive or frequent menstruation 04/16/2011 07/03/2011 documented as of this encounter (statuses as of 06/30/2023) [facility] [place] [facility] Diagnosis Encounter for screening mammogram for breast cancer [facility] [place] [facility] Diagnosis Essential hypertension- Primary Unspecified essential hypertension Hyperlipidemia, mixed Mixed hyperlipidemia Type 2 diabetes mellitus without complication, without long-term current use of insulin (HCC) Constitutional obesity Obesity, unspecified Schizophreniform disorder, chronic condition (HCC) Schizophreniform disorder, chronic condition Bipolar I disorder (HCC) Bipolar I disorder, most recent episode (or current) unspecified Extrapyramidal symptom Other symptoms involving nervous and musculoskeletal systems Low vitamin D level documented in this encounter [facility] note* Diagnosis Essential hypertension- Primary Unspecified essential hypertension Hyperlipidemia, mixed Mixed hyperlipidemia Type 2 diabetes mellitus without complication, without long-term current use of insulin (HCC) Vitamin D deficiency Unspecified vitamin D deficiency Serrated polyp of colon documented in this encounter [facility] note* Diagnosis Essential hypertension Unspecified essential hypertension Hyperlipidemia, mixed Mixed hyperlipidemia documented in this encounter [facility] note* Diagnosis History of colonic polyps- Primary Personal history of colonic polyps Serrated polyp of colon Encounter for screening for malignant neoplasm of colon Special screening for malignant neoplasms, colon documented in this encounter [facility] note* Diagnosis Encounter for screening mammogram for breast cancer documented in this encounter [facility] note* Diagnosis Primary hypertension- Primary Unspecified essential hypertension Type 2 diabetes mellitus without complication, without long-term current use of insulin (HCC) Constitutional obesity Obesity, unspecified Anemia, unspecified type Schizophreniform disorder, chronic condition (HCC) Schizophreniform disorder, chronic condition Bipolar I disorder (HCC) Bipolar I disorder, most recent episode (or current) unspecified Essential hypertension Unspecified essential hypertension Hyperlipidemia, mixed Mixed hyperlipidemia Serrated polyp of colon Extrapyramidal symptom Other symptoms involving nervous and musculoskeletal systems Vitamin D deficiency Unspecified vitamin D deficiency documented in this encounter [facility] note* Diagnosis Tubular adenoma- Primary Benign neoplasm of unspecified site Melanosis coli Other specified disorder of intestines Hemorrhoids, unspecified hemorrhoid type History of colonic polyps Personal history of colonic polyps Tortuous colon Volvulus documented in this encounter [facility] note* Diagnosis Essential hypertension Unspecified essential hypertension Hyperlipidemia, mixed Mixed hyperlipidemia documented in this encounter [facility] note* Diagnosis Encounter for immunization- Primary Need for other specified prophylactic vaccination against single bacterial disease Vitamin D deficiency Unspecified vitamin D deficiency Bipolar I disorder (HCC) Bipolar I disorder, most recent episode (or current) unspecified Constitutional obesity Obesity, unspecified Primary hypertension Unspecified essential hypertension Schizophreniform disorder, chronic condition (HCC) Schizophreniform disorder, chronic condition Type 2 diabetes mellitus without complication, without long-term current use of insulin (HCC) Occasional tremors Abnormal involuntary movements [facility] [place] [facility] Diagnosis Encounter for screening mammogram for breast cancer documented in this encounter [facility] note* Diagnosis Vitamin D deficiency- Primary Unspecified vitamin D deficiency Essential hypertension Unspecified essential hypertension Type 2 diabetes mellitus without complication, without long-term current use of insulin (HCC) Acute recurrent maxillary sinusitis Acute maxillary sinusitis Primary hypertension Unspecified essential hypertension Hyperlipidemia, mixed Mixed hyperlipidemia Constitutional obesity Obesity, unspecified Schizophreniform disorder, chronic condition (HCC) Schizophreniform disorder, chronic condition Encounter for immunization Need for other specified prophylactic vaccination against single bacterial disease Screening for depression Encounter for screening examination for other mental health and behavioral disorders documented in this encounter [facility] note* Diagnosis Type 2 diabetes mellitus without complication, without long-term current use of insulin (HCC)- Primary Essential hypertension Unspecified essential hypertension Bipolar I disorder (HCC) Bipolar I disorder, most recent episode (or current) unspecified Schizophreniform disorder, chronic condition (HCC) Schizophreniform disorder, chronic condition Constitutional obesity Obesity, unspecified Hyperlipidemia, mixed Mixed hyperlipidemia documented in this encounter [facility] note* Diagnosis Hypercalcemia- Primary [facility] Diagnosis Essential hypertension- Primary Unspecified essential hypertension Fatty liver Other chronic nonalcoholic liver disease Type 2 diabetes mellitus without complication, without long-term current use of insulin (HCC) Schizophreniform disorder, chronic condition (HCC) Schizophreniform disorder, chronic condition documented in this encounter [facility] note* Diagnosis Edema, unspecified type- Primary Essential hypertension Unspecified essential hypertension Class 2 obesity with body mass index (BMI) of 39.0 to 39.9 in adult, unspecified obesity type, unspecified whether serious comorbidity present documented in this encounter [facility] for referral (narrative)* Diagnostic Procedure Only (Routine) - Pending Review Specialty Diagnoses / Procedures Referred By Pam t Referred To Contact [facility] Diagnoses Encounter for screening mammogram for breast cancer Procedures JUVENTINO SCREENING SCREENING MAMMOGRAPHY BI 2-VIEW BREAST INC CAD Anand Colbert MD [address] [place] [address] [facility] [address] [place] [address] Referral ID Status Reason Start Date Expiration Date Visits Requested Visits Authorized [id number] Pending Review Auto-Generat ed Referral 10/16/2021 11/15/2022 1 1 [facility] for referral (narrative)* Diagnostic Procedure Only (Routine) - Pending Review Specialty Diagnoses / Procedures Referred By Contac t Referred To Contact [facility] Diagnoses Encounter for screening mammogram for breast cancer Procedures JUVENTINO SCREENING SCREENING MAMMOGRAPHY BI 2-VIEW BREAST INC Jackeline Henry PA-C [address] [place] [address] [facility] [address] [place] [address] Referral ID Status Reason Start Date Expiration Date Visits Requested Visits Authorized [id number] Pending Review Auto-Generat ed Referral 09/24/2022 10/24/2023 1 1 T [facility] for referral (narrative)* Diagnostic Procedure Only (Routine) - Pending Review Specialty Diagnoses / Procedures Referred By Contac t Referred To Contact [facility] Diagnoses Encounter for screening mammogram for breast cancer Procedures JUVENTINO SCREENING SCREENING MAMMOGRAPHY BI 2-VIEW BREAST INC Jackeline Henry PA-C [address] [place] [address] [facility] [address] [place] [address] Referral ID Status Reason Start Date Expiration Date Visits Requested Visits Authorized [id number] Pending Review Auto-Generat ed Referral 09/02/2023 10/01/2024 1 1 [facility] Summary Purpose Family History No Family History Records FoundNo Family History Records FoundNo Family History Records Found Advance Directives No Advanced Directives Records FoundDocuments on File Type Date Recorded Patient [employer] Support Expl anation Advance Directive(s) 12/13/2019 11:03 AM Advance Directive(s) 12/05/2019 1:25 PM Advance Directive(s) 09/28/2017 8:53 AM Advance Directive(s) 06/26/2016 9:59 AM Advance Directive(s) 06/19/2016 3:25 PM Documents on File Type Date Recorded Patient [employer] Support Expl anation Advance Directive(s) 12/13/2019 11:03 AM Advance Directive(s) 12/05/2019 1:25 PM Advance Directive(s) 09/28/2017 8:53 AM Advance Directive(s) 06/26/2016 9:59 AM Advance Directive(s) 06/19/2016 3:25 PM Reason for Referral Specialty Diagnoses / Procedures Referred By Contsyd t Referred To Contact General Surgery Diagnoses Serrated polyp of colon Procedures CONSULT TO GENERAL SURGERY OFFICE/OUTPATIENT [facility] [place] 60-74 MINUTES Jackeline Blue PA-C [address] [place] [address] Referral ID Status Reason Start Date Expiration Date Visits Requested Visits Authorized [id number] Authorized PCP Requested Referral 05/12/2022 05/12/2023 1 1 Additional Source Comments INFORMATION SOURCE (unrecogn ized section and content) DATE CREATED AUTHOR 10/14/2017 [facility] DATE CREATED AUTHOR AUTHOR'S ORGANIZ ATION 10/21/2017 [facility] DATE CREATED AUTHOR AUTHOR'S ORGANIZ ATION 09/27/2024 [facility] Source Comments (unrecognize d section and content) In the event this informatio n is protected by the Federal Confidentiality of Alcohol and Drug Abuse Patient Records regulations: The Federal rules restrict any use of the information to criminally investigate or prosecute any alcohol or drug abuse patient.[facility] the event this information is protected by the Federal Confidentiality of Alcohol and Drug Abuse Patient Records regulations: The Federal rules restrict any use of the information to criminally investigate or prosecute any alcohol or drug abuse patient.[facility] the event this information is protected by the Federal Confidentiality of Alcohol and Drug Abuse Patient Records regulations: The Federal rules restrict any use of the information to criminally investigate or prosecute any alcohol or drug abuse patient.[facility] Hospital[facility] the event this information is protected by the Federal Confidentiality of Alcohol and Drug Abuse Patient Records regulations: The Federal rules restrict any use of the information to criminally investigate or prosecute any alcohol or drug abuse patient.[facility] Hospital[facility] the event this information is protected by the Federal Confidentiality of Alcohol and Drug Abuse Patient Records regulations: The Federal rules restrict any use of the information to criminally investigate or prosecute any alcohol or drug abuse patient.[facility] Hospital[facility] the event this information is protected by the Federal Confidentiality of Alcohol and Drug Abuse Patient Records regulations: The Federal rules restrict any use of the information to criminally investigate or prosecute any alcohol or drug abuse patient.[facility] Hospital[facility] the event this information is protected by the Federal Confidentiality of Alcohol and Drug Abuse Patient Records regulations: The Federal rules restrict any use of the information to criminally investigate or prosecute any alcohol or drug abuse patient.[facility] Hospital[facility] the event this information is protected by the Federal Confidentiality of Alcohol and Drug Abuse Patient Records regulations: The Federal rules restrict any use of the information to criminally investigate or prosecute any alcohol or drug abuse patient.[facility] Hospital[facility] the event this information is protected by the Federal Confidentiality of Alcohol and Drug Abuse Patient Records regulations: The Federal rules restrict any use of the information to criminally investigate or prosecute any alcohol or drug abuse patient.[facility] HospitalIn the event this information is protected by the Federal Confidentiality of Alcohol and Drug Abuse Patient Records regulations: The Federal rules restrict any use of the information to criminally investigate or prosecute any alcohol or drug abuse patient.[facility] Hospital[facility] the event this information is protected by the Federal Confidentiality of Alcohol and Drug Abuse Patient Records regulations: The Federal rules restrict any use of the information to criminally investigate or prosecute any alcohol or drug abuse patient.[facility] Hospital[facility] the event this information is protected by the Federal Confidentiality of Alcohol and Drug Abuse Patient Records regulations: The Federal rules restrict any use of the information to criminally investigate or prosecute any alcohol or drug abuse patient.[facility] Hospital[facility] the event this information is protected by the Federal Confidentiality of Alcohol and Drug Abuse Patient Records regulations: The Federal rules restrict any use of the information to criminally investigate or prosecute any alcohol or drug abuse patient.[facility] Hospital[facility] the event this information is protected by the Federal Confidentiality of Alcohol and Drug Abuse Patient Records regulations: The Federal rules restrict any use of the information to criminally investigate or prosecute any alcohol or drug abuse patient.[facility] HospitalIn the event this information is protected by the Federal Confidentiality of Alcohol and Drug Abuse Patient Records regulations: The Federal rules restrict any use of the information to criminally investigate or prosecute any alcohol or drug abuse patient.[facility] HospitalIn the event this information is protected by the Federal Confidentiality of Alcohol and Drug Abuse Patient Records regulations: The Federal rules restrict any use of the information to criminally investigate or prosecute any alcohol or drug abuse patient.[facility] HospitalIn the event this information is protected by the Federal Confidentiality of Alcohol and Drug Abuse Patient Records regulations: The Federal rules restrict any use of the information to criminally investigate or prosecute any alcohol or drug abuse patient.[facility] HospitalIn the event this information is protected by the Federal Confidentiality of Alcohol and Drug Abuse Patient Records regulations: The Federal rules restrict any use of the information to criminally investigate or prosecute any alcohol or drug abuse patient.[facility] HospitalIn the event this information is protected by the Federal Confidentiality of Alcohol and Drug Abuse Patient Records regulations: The Federal rules restrict any use of the information to criminally investigate or prosecute any alcohol or drug abuse patient.[facility] HospitalIn the event this information is protected by the Federal Confidentiality of Alcohol and Drug Abuse Patient Records regulations: The Federal rules restrict any use of the information to criminally investigate or prosecute any alcohol or drug abuse patient.[facility] Care Teams (unrecognized sec tion and content) [employer] Hydraulicker Relationship Specialty Start Date End Date Anand Colbert MD [address] [place], [place] [id number] PCP - General Family Practice 05/18/14 [employer] Hydraulicker Relationship Specialty Start Date End Date Jackeline Blue PA-C [address] [place], [place] [id number] PCP - General Family Practice 11/11/21 [employer] Hat Hydraulicker Relationship Specialty Start Date End Date Jackeline Blue PA-C [address] [place] [address] PCP - General Family Practice 11/11/21 [employer] Hat Hydraulicker Relationship Specialty Start Date End Date Jackeline Blue PA-C [address] [place] [address] PCP - General Family Medicine 11/11/21 Wool Hat Hydraulicker Relationship Specialty Start Date End Date Jackeline Blue PA-C [address] [place] [address] PCP - General Family Medicine 11/11/21 Wool Hat Hydraulicker Relationship Specialty Start Date End Date Jackeline Blue PA-C [address] [place] [address] PCP - General Family Medicine 11/11/21 Wool Hat Hydraulicker Relationship Specialty Start Date End Date Jackeline Blue PA-C [address] [place] [address] PCP - General Family Medicine 11/11/21 Wool Hat Hydraulicker Relationship Specialty Start Date End Date Jackeline Blue PA-C [address] [place] [address] PCP - General Family Medicine 11/11/21 Wool Hat Hydraulicker Relationship Specialty Start Date End Date Jackeline Blue PA-C [address] [place] [address] PCP - General Family Medicine 11/11/21 Wool Hat Hydraulicker Relationship Specialty Start Date End Date Jackeline Blue PA-C [address] [place], [place] [address] PCP - General Family Medicine 11/11/21 Wool Hat Hydraulicker Relationship Specialty Start Date End Date Jackeline Blue PA-C [address] [facility] [place] [address] PCP - General Family Medicine 11/11/21 Wool Hat Hydraulicker Relationship Specialty Start Date End Date Jackeline Blue PA-C [address] [facility] [place] [address] PCP - General Family Medicine 11/11/21 Wool Hat Hydraulicker Relationship Specialty Start Date End Date Tiffany Joe APRN.[employer]NANT[employer] C[employer]TER [address] [place] [address] PCP - General Family Medicine 07/04/24 Venessa Honeycutt APRN.REMNANTS CUTTER [address] [place] [address] Senior Designer Family Medicine 04/01/24 Tiffany Joe APRN.REMNANT[employer] CUTTER [address] [place] [address] Senior Designer Family Medicine 04/01/24 Wool Hat Hydraulicker Relationship Specialty Start Date End Date Tiffany Joe APRN.[employer]NANT[employer] CUTTER [address] [facility] [place] [address] PCP - General Family Medicine 07/04/24 Venessa Honeycutt APRN.REMNANT[employer] CUTTER [address] [place] [address] Senior Designer Family Medicine 04/01/24 Tiffany Joe APRN.REMNANT[employer] CUTTER [address] [place] [address] Senior Designer Family Medicine 04/01/24 Wool Hat Hydraulicker Relationship Specialty Start Date End Date Tiffany Joe CUSTOMER RESOLUTION SPECIALIST.REMNANTS CUTTER [address] [place] [address] PCP - General Family Medicine 07/04/24 Venessa Honeycutt, CUSTOMER RESOLUTION SPECIALIST.REMNANTS CUTTER [address] [facility] [place] [address] Senior Designer Family Medicine 04/01/24 07/18/24 Tiffany Joe CUSTOMER RESOLUTION SPECIALIST.[employer]NANTS CUTTER [address] [facility] [place] [address] Senior Designer [facility] 04/01/24 07/18/24 Wool Hat Hydraulicker Relationship Specialty Start Date End Date Anand Colbert MD [address] [place] [address] PCP - General Family Medicine 09/06/24 Venessa Honeycutt, CUSTOMER RESOLUTION SPECIALIST.[employer]NANT[employer] CUTTER [address] [facility] [place] [address] Family Medicine 09/06/24 Tiffany Joe, CUSTOMER RESOLUTION SPECIALIST.[employer] CUTTER [address] [facility] [place] [address] Family Medicine 09/06/24 Wool Hat Hydraulicker Relationship Specialty Start Date End Date Anand Colbert MD [address] [place] [address] PCP - General Family Medicine 09/06/24 Venessa Honeycutt, CUSTOMER RESOLUTION SPECIALIST.REMNANT[employer] CUTTER [address] [facility] [place] [address] Family Medicine 09/06/24 Tiffany Joe APRN.[employer]NANT[employer] C[employer]TER [address] [facility] [place] [address] Family Medicine 09/06/24 Venessa Honeycutt, CUSTOMER RESOLUTION SPECIALIST.[employer] C[employer]TER [address] [place] [address] [facility] 09/08/24 Tiffany Joe CUSTOMER RESOLUTION SPECIALIST.REMNANT[employer] CUTTER [address] [facility] [place] [address] [facility] 09/08/24 Wool Hat Hydraulicker Relationship Specialty Start Date End Date Anand Colbert MD [address] [facility] [place] [address] PCP - General Family Medicine 09/06/24 Venessa Honeycutt, CUSTOMER RESOLUTION SPECIALIST.[employer]NT[employer] CUTTER [address] [place] [address] Family Medicine 09/06/24 Tiffany oJe CUSTOMER RESOLUTION SPECIALIST.[employer]NA[employer] CUTTER [address] [place] [place] [address] Family Medicine 09/06/24 Venessa Honeycutt, CUSTOMER RESOLUTION SPECIALIST.[employer] C[employer]TER [address] [place] [address] [facility] 09/08/24 Tiffany Joe, CUSTOMER RESOLUTION SPECIALIST.[employer]NANT[employer] CUTTER [address] [place] [address] [facility] Medicine 09/08/24 Reason for Visit (unrecogniz ed section and content) Reason Comments Results Reason Comments 6 Month Exam Reason Onset Date Comments Refill Request 06/26/2022 Reason Comments Consult Colonoscopy consult Specialty Diagnoses / Procedures Referred By Pam ely Referred To Contact General Surgery Diagnoses Serrated polyp of colon Procedures CONSULT TO GENERAL SURGERY OFFICE/OUTPATIENT [facility] MDM 60-74 MINUTES Jackeline Blue PA-C [address] [place] [address] Referral ID Status Reason Start Date Expiration Date V isits Requested Visits Authorized [id number] Closed PCP Requested Referral 05/12/2022 05/12/2023 1 1 Reason Comments 6 Month Exam Reason Comments Follow Up colonoscopy Reason Onset Date Comments Refill Request 06/22/2023 Reason Comments Follow Up 7 month Reason Comments Hypertension Reason Comments Leg Edema Reason Comments leg swelling Feels much more impr landen. Has always had some swelling in ankles but this was much more. Her jeans were much tighter so believes went up her legs. FOR RECORDS PERTAINING TO PATIENTS WHO ARE OR HAVE BEEN ENROLLED IN A CHEMICAL DEPENDENCY/SUBSTANCEABUSE PROGRAM, SOME INFORMATION MAY BE OMITTED. This clinical summary was aggregated from multiple sources. Caution should be exercised in using it in the provision of clinical care. This summary normalizes information from multiple sources, and as a consequence, information in this document may materially change the coding, format and clinical context of patient data. In addition, data may be omitted in some cases. CLINICAL DECISIONS SHOULD BE BASED ON THE PRIMARY CLINICAL RECORDS. [facility] [employer] [facility]. provides no warranty or guarantee of the accuracy or completeness of information in this document.
[2024-11-06 20:53] VITALS: O2SAT 95
[2024-11-06 21:04] VITALS: BP 142/88; PULSE 98; RESP 16; TEMP 36.7; O2SAT 98
== END 2024-11-06 21:11 | disposition home or self-care (01) ==
PROVIDERS: Emergency Provider Emergency Medicine; PCP Family Medicine; Visit Provider Emergency Medicine
DX: R21 Rash and other nonspecific skin eruption (principal); E11.9 Type 2 diabetes mellitus without complications; J18.9 Pneumonia, unspecified organism; I10 Essential (primary) hypertension; E78.00 Pure hypercholesterolemia, unspecified; Z79.84 Long term (current) use of oral hypoglycemic drugs; Z79.899 Other long term (current) drug therapy
CPT/HCPCS: 71046; 99282